=== PATIENT | male | born 1985 | race Caucasian/White ===

== ENCOUNTER 2018-01-07 17:07 | Inpatient (IN) | payer OTHER ==
--- NOTE | 2018-01-07 20:41 | HP ---
COWS - Scale Resting Pulse: 0= DE 80 or Below Sweatin=Flushed/Facial Moisture Restless Observation: 0= Sits Still Pupil Size: 1= Pupils >than Normal Bone or Joint Aches: 4=Acute Joint/Muscle Pain Runny Nose/ Eye Tearin= Nasal Congestion GI Upset > 30mins: 3= Vomiting/Diarrhea (vomiting x 2, diarrhea x 6) Tremor Observation: 4= Gross Tremor/Twitching Yawning Observation: 0= None Anxiety or Irritability: 2=Irritable/Anxious Goose Flesh Skin: 0=Smooth Skin COWS Score: 17 Admission ROS [facility] Chief Complaint: Opioid and benzodiazepine withdrawal symptoms Allergies/Adverse Reactions: Allergies Allergy/AdvReac Type Severity Reaction Status Date / Time No Known Allergies Allergy Verified 01/07/18 18:09 History of Present Illness: 32 years old male with a long history of heroin dependence is seeking admission to detox.Patient has been in previous detox and reports 3 years of sobriety. He has medical history of anxiety, depression and seizures. Patient denies suicide attempt and suicidal ideation at this time. Patient is on Methadone 130mg tablet oral at [facility]. Patient re[ports that his last dose was on 12/22/2017, 15 days ago. Actual dose to be initiated to maintain him on methadone is yet to be verified by the nurse from his program. Exam Limitations: No Limitations - Ebola screening Have you traveled outside of the country in the last 21 days: No (N) Have you had contact with anyone from an Ebola affected area: No Have you been sick,other than usual withdrawal symptoms: No Do you have a fever: No - Review of Systems Constitutional: Chills, Loss of Appetite, Malaise, Night Sweats, Changes in sleep, Weakness EENT: reports: No Symptoms Reported Respiratory: reports: No Symptoms reported Cardiac: reports: No Symptoms Reported GI: reports: Diarrhea (x 6), Nausea, Poor Appetite, Poor Fluid Intake, Vomiting (x 2) : reports: No Symptoms Reported Musculoskeletal: reports: Back Pain, Muscle Pain Integumentary: reports: Dryness, Pruritus Neuro: reports: Tingling, Tremors, Weakness Endocrine: reports: No Symptoms Reported Hematology: reports: Anemia Psychiatric: reports: Mood/Affect Appropiate, Orientated x3, Anxious Other Systems: Reviewed and Negative Patient History - Patient Medical History Hx Anemia: No Hx Asthma: No Hx Chronic Obstructive Pulmonary Disease (COPD): No Hx Cancer: No Hx Cardiac Disorders: No Hx Congestive Heart Failure: No Hx Hypertension: No Hx Hypercholesterolemia: No Hx Pacemaker: No HX Cerebrovascular Accident: No Hx Seizures: Yes (LAST EPISODE IN 2012- Not on medication) Hx Dementia: No Hx Diabetes: No Hx Gastrointestinal Disorders: No Hx Liver Disease: No Hx Genitourinary Disorders: No Hx Sexually Transmitted Disorders: No Hx Renal Disease (ESRD): No Hx Thyroid Disease: No Hx Human Immunodeficiency Virus (HIV): No (NEGATIVE HX) Hx Hepatitis C: No Hx Depression: Yes (Not on medication) Hx Suicide Attempt: No (Denies suicide attempt and suicidal ideation at this time) Hx Bipolar Disorder: No Hx Schizophrenia: No Other Medical History: ANXIETY- Not on medication - Patient Surgical History Past Surgical History: Yes Hx Neurologic Surgery: No Hx Cataract Extraction: No Hx Cardiac Surgery: No Hx Lung Surgery: No Hx Breast Surgery: No Hx Breast Biopsy: No Hx Abdominal Surgery: No Hx Appendectomy: No Hx Cholecystectomy: No Hx Genitourinary Surgery: No Hx Section: No Hx Orthopedic Surgery: Yes (BONE GRAFT LEFT HIP TO RIGHT WRIST) Other Surgical History: SX TO SEPTUM DUE TO DIFFICULTY BREATHING IN 2000 Anesthesia Reaction: No - PPD History Implanted On Prior R Admission?: Yes Date: 04/10/13 Results: 0 MM PPD to be Administered?: Yes - Reproductive History Patient is a Female of Child Bearing Age (11 -55 yrs old): No (MALE) - Smoking Cessation Smoking history: Current every day smoker Have you smoked in the past 12 months: Yes Aproximately how many cigarettes per day: 20 Cigars Per Day: 0 Hx Chewing Tobacco Use: No Initiated information on smoking cessation: Yes 'Breaking Loose' booklet given: 01/07/18 - Substances Abused Alprazolam (Xanax) Route: Oral Frequency: Daily Amount used: 2mg Age of first use: 17 Date of Last Use: 01/06/18 Heroin Route: Injection Frequency: Daily Amount used: 10 bags Age of first use: 20 Date of Last Use: 01/06/18 Benzodiazepine (Klonopin) Route: Oral Frequency: Daily Amount used: 6mg Age of first use: 17 Date of Last Use: 01/04/18 Fentanyl Route: Injection Frequency: Daily Amount used: 1gm Age of first use: 20 Date of Last Use: 01/06/18 Family Disease History - Family Disease History Family Disease History: Other: Father (HEROIN ADDICTION), Brother (ALCOHOLISM) Admission Physical Exam [facility] - Vital Signs Vital Signs: Vital Signs - 24 hr 01/07/18 18:21 Temperature 98.0 F Pulse Rate 62 Respiratory 18 Rate Blood Pressure 112/71 - Physical General Appearance: Yes: Moderate Distress, Tremorous, Irritable, Sweating, Anxious HEENTM: Yes: EOMI, Normal ENT Inspection, Normocephalic, Normal Voice, MANUEL Respiratory: Yes: Lungs Clear, Normal Breath Sounds, No Respiratory Distress Breast: Yes: Breast Exam Deferred Cardiology: Yes: Regular Rhythm, Regular Rate Abdominal: Yes: Normal Bowel Sounds, Soft Genitourinary: Yes: Within Normal Limits Back: Yes: Normal Inspection Musculoskeletal: Yes: Back pain, Muscle Pain Extremities: Yes: Tremors 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: Yes: slabber light II-XII NML intact, Alert, Normal Mood/Affect Integumentary: Yes: Warm Lymphatic: Yes: Within Normal Limits - Diagnostic (1) Opioid dependence with withdrawal Current Visit: Yes Status: Chronic (2) Nicotine dependence Current Visit: Yes Status: Chronic (3) Anxiety Current Visit: Yes Status: Chronic (4) Benzodiazepine dependence Current Visit: Yes Status: Chronic (5) cannabis dependence Current Visit: Yes Status: Chronic (6) depression Current Visit: Yes Status: Chronic Cleared for Admission [facility] - Detox or Rehab [facility] Level of Care: Medically Managed Detox Regimen/Protocol: Valium [facility] Breath Alcohol Content Breath Alcohol Content: 0 Urine Drug Screen - Results Drug Screen Negative: No Urine Drug Screen Results: THC-Marijuana, OPI-Opiates, BAR-Barbiturates, BZO- Benzodiazepines, MTD-Methadone, FEN-Fentanyl
[2018-01-07] MEDS ORDERED: MAG HYDROX/AL HYDROX/SIMETH 30 ML UNIT-DOSE CUP PO PRN (21:01)
[2018-01-07] MEDS ORDERED: IBUPROFEN 400 MG TABLET (FP) PO PRN (21:01)
[2018-01-07] MEDS ORDERED: LOPERAMIDE HCL 2 MG CAPSULE PO PRN (21:01)
[2018-01-07] MEDS ORDERED: P-EPHED 60MG/TRIPROLIDI 2.5MG TABLET PO PRN (21:01)
[2018-01-07] MEDS ORDERED: guaiFENesin/D-METHORPHAN HB 10 ML UNIT-DOSE CUPS PO PRN (21:01)
[2018-01-07] MEDS ORDERED: MAGNESIUM CITRATE 300 ML BOTTLE PO PRN (21:01)
[2018-01-07] MEDS ORDERED: ACETAMINOPHEN 325 MG TABLET (FP) PO PRN (21:01)
[2018-01-07] MEDS ORDERED: MAGNESIUM HYDROX 2400MG/30ML ORAL SUSPENSION 30 ML CUP PO PRN (21:01)
[2018-01-07] MEDS ORDERED: MENTHOL/PHENOL 1 EACH UD MM PRN (21:01)
[2018-01-07] MEDS ORDERED: diazePAM 5 MG TABLET PO ONE (21:15)
[2018-01-07] MEDS ORDERED: MELATONIN 5 MG TABLETS PO PRN (22:00)
[2018-01-07] MEDS: THIAMINE HCL 100 MG TABLET (FP) PO SCH (22:51)
[2018-01-07] MEDS: diazePAM 5 MG TABLET PO SCH (22:55)
[2018-01-08 00:52] LABS: URINE APPEARANCE TURBID; URINE BILIRUBIN NEGATIVE (<2.0 mg/dL); URINE COLOR AMBER; URINE GLUCOSE (UA) NEGATIVE (NEGATIVE); URINE KETONE NEGATIVE (NEGATIVE); URINE LEUK ESTERASE NEGATIVE (NEGATIVE); URINE NITRITE NEGATIVE (NEGATIVE); URINE PROTEIN NEGATIVE (NEGATIVE); URINE UROBILINOGEN NEGATIVE mg/dL (0.2-1.0)
[2018-01-08] MEDS: diazePAM 5 MG TABLET PO SCH ×3 (05:26→22:03)
[2018-01-08] MEDS: NICOTINE POLACRILEX 2 MG GUM BC PRN ×4 (07:00→22:04)
--- NOTE | 2018-01-08 10:02 | EKG ---
Test Reason : Blood Pressure : / mmHG Vent. Rate : 071 BPM Atrial Rate : 071 BPM P-R Int : 142 ms QRS Dur : 090 ms QT Int : 382 ms P-R-T Axes : 056 058 044 degrees QTc Int : 415 ms NORMAL SINUS RHYTHM WITH SINUS ARRHYTHMIA NORMAL ECG NO PREVIOUS ECGS AVAILABLE Confirmed by CELINE ROCHE MD ([id number]) on 01/08/2018 10:01:56 AM Referred By: Confirmed By:CELINE ROCHE MD
[2018-01-08 10:37] LABS: HEMATOCRIT 41.3 % (35.4-49); HEMOGLOBIN 13.5 GM/dL (11.7-16.9); MCH 29.4 pg (25.7-33.7); MCHC 32.7 g/dl (32.0-35.9); MEAN CELL VOLUME 89.8 fl (80-96); PLATELET COUNT 201 K/MM3 (134-434); RDW 14.2 % (11.9-15.9); WHITE BLOOD COUNT 6.7 K/mm3 (4.0-10.0)
[2018-01-08] MEDS: NICOTINE 14 MG/24 HOURS TOPICAL PATCH TD SCH (10:54)
[2018-01-08] MEDS: PRENATAL VITAMINS W/ FOLIC ACID TABLET (FP) PO SCH (10:54)
[2018-01-08] MEDS: diazePAM 5 MG TABLET PO PRN ×2 (10:55→19:23)
[2018-01-08 11:10] LABS: CHLORIDE 100 mmol/L (98-107); POTASSIUM 4.3 mmol/L (3.5-5.1); SODIUM 140 mmol/L (136-145)
[2018-01-08 11:54] LABS: ALBUMIN 3.5 g/dl (3.4-5.0); ALK PHOS 61 U/L (45-117); ANION GAP 10 MMOL/L (8-16); BILIRUBIN,TOTAL 0.2 mg/dL (0.2-1.0); BLOOD UREA NITROGEN 19 mg/dL (7-18); CALCIUM 8.6 mg/dL (8.5-10.1); CO2 30 mmol/L (21-32); CREATININE 0.9 mg/dL (0.55-1.3); GLUCOSE,RANDOM 114 mg/dL (74-106); SGOT/AST 11 U/L (15-37); SGPT/ALT 26 U/L (13-61); TOT PROT 6.4 g/dl (6.4-8.2)
--- NOTE | 2018-01-08 12:27 | CONSULT ---
[facility] Psychiatric Consult - Data Date of interview: 01/08/18 Admission source: [facility] Identifying data: Readmission to [facility] for this 32 y/o male self- referred for detoxification treatment (heroin,cannabis,benzodiazepines).Patient is single without dependents,homeless,unemployed and supported on Public Assistance. Substance Abuse History: Discussed with the patient in this interview. Mr Sung admits to a long standing history of dependence on marihuana,xanax and opiates. Details in current [facility] report : Smoking history: Current every day smoker. Have you smoked in the past 12 months: Yes. Aproximately how many cigarettes per day: 20. Cigars Per Day: 0. Hx Chewing Tobacco Use: No. Initiated information on smoking cessation: Yes. 'Breaking Loose' booklet given : 01/07/18. - Substances Abused. Alprazolam (Xanax). Route: Oral. Frequency: Daily. Amount used: 2mg. Age of first use: 17. Date of Last Use: 01/06/18. Heroin. Route: Injection. Frequency: Daily. Amount used: 10 bags. Age of first use: 20. Date of Last Use: 01/06/18. Benzodiazepine ( Klonopin). Route: Oral. Frequency: Daily. Amount used: 6mg. Age of first use : 17. Date of Last Use: 01/04/18. Fentanyl. Route: Injection. Frequency: Daily. Amount used: 1gm. Age of first use: 20. Date of Last Use: 01/06/18 Medical History: Patient endorses good general health.Noted history of surgery for deviated nasal septum (2000),withdrawal-related seizures and orthosurgery ( bone graft of left hip to right wrist). Psychiatric History: Patient reports a history of one psychiatric hospitalization at the [facility].Diagnosed with MDD and Anxiety Disorder.Mr Sung indicates that he has not followed with psychiatrist for " a while ".Used to be prescribed trazodone 100 mg / hs.Currently on methadone maintenance (130 mg/day) at the [facility] program.Patient denies history of suicide attempts. Physical/Sexual Abuse/Trauma History: Patient denies. Additional Comment: Urine Drug Screen Results: THC-Marijuana, OPI-Opiates, BAR- Barbiturates, BZO-Benzodiazepines, MTD-Methadone, FEN-Fentanyl.Noted. Mental Status Exam - Mental Status Exam Alert and Oriented to: Time, Place, Person Cognitive Function: Good Patient Appearance: Well Groomed Mood: Nervous, Withdrawn, Anxious Affect: Mood Congruent Patient Behavior: Fatigued, Appropriate, Cooperative Speech Pattern: Clear Voice Loudness: Normal Thought Process: Intact, Goal Oriented Thought Disorder: Not Present Hallucinations: Denies Suicidal Ideation: Denies Homicidal Ideation: Denies Insight/Judgement: Poor Sleep: Poorly, Difficulty falling asleep Appetite: Good Muscle strength/Tone: Normal Gait/Station: Normal Psychiatric Findings - Problem List (Alvin 1, 2,3) (1) Opioid dependence on agonist therapy Current Visit: Yes Status: Acute (2) Opioid dependence with withdrawal Current Visit: Yes Status: Acute (3) cannabis dependence Current Visit: Yes Status: Acute (4) Benzodiazepine dependence Current Visit: Yes Status: Acute (5) Nicotine dependence Current Visit: Yes Status: Acute (6) Drug-induced mood disorder Current Visit: Yes Status: Acute (7) Insomnia Current Visit: Yes Status: Acute - Initial Treatment Plan Initial Treatment Plan: Psychoeducation.Sleep hygiene.Detoxification in progress.Trazodone 100 mg po hs.Ordered at patient's request.Made aware of the risk of priapism.Observation.
[2018-01-08] MEDS: METHADONE HCL 10 MG TABLET PO SCH (12:31)
--- NOTE | 2018-01-08 18:28 | PN ---
S CIWA - CIWA Score Nausea/Vomitin Muscle Tremors: 3 Anxiety: 3 Agitation: 4-Moderately Restless Paroxysmal Sweats: 3 Orientation: 0-Oriented Tacttile Disturbances: 0-None Auditory Disturbances: 0-None Visual Disturbances: 0-None Headache: 0-None Present CIWA-Ar Total Score: 16 BHS COWS - Scale Resting Pulse: 0= [place] 80 or Below Sweatin=Flushed/Facial Moisture Restless Observation: 3= Extraneous Movement Pupil Size: 0= Normal to Room Light Bone or Joint Aches: 1= Mild Discomfort Runny Nose/ Eye Tearin= Nasal Congestion GI Upset > 30mins: 1= Stomach Cramp Tremor Observation of Outstretched Hands: 2= Slight Tremor Visible Yawning Observation: 1= 1-2x During Session Anxiety or Irritability: 2=Irritable/Anxious Goose Flesh Skin: 0=Smooth Skin COWS Score: 13 S Progress Note (SOAP) Subjective: shakes requesting methadone per his program dose Objective: 01/08/18 18:25 A & Ox 3 Anxious Vital Signs Temperature 98.3 F 01/08/18 17:57 Pulse Rate 78 01/08/18 17:57 Respiratory Rate 18 01/08/18 17:57 Blood Pressure 116/53 01/08/18 17:57 O2 Sat by Pulse Oximetry (%) Laboratory Last Values WBC 6.7 K/mm3 (4.0-10.0) 01/08/18 08:00 RBC 4.60 M/mm3 (4.00-5.60) 01/08/18 08:00 Hgb 13.5 GM/dL (11.7-16.9) 01/08/18 08:00 Hct 41.3 % (35.4-49) 01/08/18 08:00 MCV 89.8 fl (80-96) 01/08/18 08:00 MCH 29.4 pg (25.7-33.7) 01/08/18 08:00 MCHC 32.7 g/dl (32.0-35.9) 01/08/18 08:00 RDW 14.2 % (11.9-15.9) 01/08/18 08:00 Plt Count 201 K/MM3 (134-434) 01/08/18 08:00 MPV 10.0 fl (7.5-11.1) 01/08/18 08:00 Sodium 140 mmol/L (136-145) 01/08/18 08:00 Potassium 4.3 mmol/L (3.5-5.1) 01/08/18 08:00 Chloride 100 mmol/L (98-107) 01/08/18 08:00 Carbon Dioxide 30 mmol/L (21-32) 01/08/18 08:00 Anion Gap 10 MMOL/L (8-16) 01/08/18 08:00 BUN 19 mg/dL (7-18) H 01/08/18 08:00 Creatinine 0.9 mg/dL (0.55-1.3) 01/08/18 08:00 Creat Clearance w eGFR > 60 (>60) 01/08/18 08:00 Random Glucose 114 mg/dL (74-106) H 01/08/18 08:00 Calcium 8.6 mg/dL (8.5-10.1) 01/08/18 08:00 Total Bilirubin 0.2 mg/dL (0.2-1.0) 01/08/18 08:00 AST 11 U/L (15-37) L 01/08/18 08:00 ALT 26 U/L (13-61) 01/08/18 08:00 Alkaline Phosphatase 61 U/L (45-117) 01/08/18 08:00 Total Protein 6.4 g/dl (6.4-8.2) 01/08/18 08:00 Albumin 3.5 g/dl (3.4-5.0) 01/08/18 08:00 Urine Color Nereyda 01/07/18 23:27 Urine Appearance Turbid 01/07/18 23:27 Urine pH 5.0 (5.0-8.0) 01/07/18 23:27 Ur Specific [place] 1.031 (1.001-1.035) 01/07/18 23:27 Urine Protein Negative (NEGATIVE) 01/07/18 23: Urine Glucose (UA) Negative (NEGATIVE) 01/07/18 23: Urine Ketones Negative (NEGATIVE) 01/07/18 23: Urine Blood Negative (NEGATIVE) 01/07/18 23: Urine Nitrite Negative (NEGATIVE) 01/07/18 23: Urine Bilirubin Negative (<2.0 mg/dL) 01/07/18 23:27 Urine Urobilinogen Negative mg/dL (0.2-1.0) 01/07/18 23:27 Ur Leukocyte Esterase Negative (NEGATIVE) 01/07/18 23:27 RPR Titer Nonreactive (NONREACTIVE) 01/08/18 08:00 labs noted Assessment: 01/08/18 18:26 withdrawal sx Plan: continue detox increase hydration Methadone 20mg. Pt was last medicated at his MMTP on 12/22/17 s/p incarceration
[2018-01-08] MEDS: traZODone HCL 100 MG TABLET (FP) PO SCH (22:03)
[2018-01-08] MEDS: THIAMINE HCL 100 MG TABLET (FP) PO SCH (22:04)
[2018-01-09] MEDS: METHADONE HCL 10 MG TABLET PO SCH (07:43)
[2018-01-09] MEDS: NICOTINE POLACRILEX 2 MG GUM BC PRN (09:45)
[2018-01-09] MEDS: diazePAM 5 MG TABLET PO SCH ×2 (10:51→22:20)
[2018-01-09] MEDS: NICOTINE 14 MG/24 HOURS TOPICAL PATCH TD SCH (10:51)
[2018-01-09] MEDS: PRENATAL VITAMINS W/ FOLIC ACID TABLET (FP) PO SCH (10:51)
[2018-01-09] MEDS: NICOTINE POLACRILEX 4 MG GUM BUC PRN ×4 (10:52→20:25)
--- NOTE | 2018-01-09 11:26 | PN ---
S CIWA - CIWA Score Nausea/Vomitin-No Nausea/No Vomiting Muscle Tremors: None Anxiety: 2 Agitation: 2 Paroxysmal Sweats: No Perspiration Orientation: 0-Oriented Tacttile Disturbances: 0-None Auditory Disturbances: 0-None Visual Disturbances: 0-None Headache: 1-Very Mild CIWA-Ar Total Score: 5 BHS COWS - Scale Resting Pulse: 0= [place] 80 or Below Sweatin= No chills or Flushing Restless Observation: 1= Difficult to Sit Still Pupil Size: 0= Normal to Room Light Bone or Joint Aches: 2= Severe Diffuse Aches Runny Nose/ Eye Tearin= None GI Upset > 30mins: 0= None Tremor Observation of Outstretched Hands: 0= None Yawning Observation: 0= None Anxiety or Irritability: 2=Irritable/Anxious Goose Flesh Skin: 0=Smooth Skin COWS Score: 5 S Progress Note (SOAP) Subjective: PATIENT IRRITABLE AND ANXIOUS ABOUT LEGAL SITUATION. C/O BODY ACHES AND HEADACHE. Objective: 01/09/18 11:25 Vital Signs Temperature 98.0 F 01/09/18 09:31 Pulse Rate 63 01/09/18 09:31 Respiratory Rate 18 01/09/18 09:31 Blood Pressure 94/51 01/09/18 09:31 O2 Sat by Pulse Oximetry (%) Laboratory Tests 01/07/18 01/08/18 01/08/18 23:27 08:00 08:00 WBC 6.7 RBC 4.60 Hgb 13.5 Hct 41.3 MCV 89.8 MCH 29.4 MCHC 32.7 RDW 14.2 Plt Count 201 MPV 10.0 Sodium 140 Potassium 4.3 Chloride 100 Carbon Dioxide 30 Anion Gap 10 BUN 19 H Creatinine 0.9 Creat Clearance w eGFR > 60 Random Glucose 114 H Calcium 8.6 Total Bilirubin 0.2 AST 11 L ALT 26 Alkaline Phosphatase 61 Total Protein 6.4 Albumin 3.5 Urine Color Nereyda Urine Appearance Turbid Urine pH 5.0 Ur Specific [place] 1.031 Urine Protein Negative Urine Glucose (UA) Negative Urine Ketones Negative Urine Blood Negative Urine Nitrite Negative Urine Bilirubin Negative Urine Urobilinogen Negative Ur Leukocyte Esterase Negative RPR Titer 01/08/18 08:00 WBC RBC Hgb Hct MCV MCH MCHC RDW Plt Count MPV Sodium Potassium Chloride Carbon Dioxide Anion Gap BUN Creatinine Creat Clearance w eGFR Random Glucose Calcium Total Bilirubin AST ALT Alkaline Phosphatase Total Protein Albumin Urine Color Urine Appearance Urine pH Ur Specific [place] Urine Protein Urine Glucose (UA) Urine Ketones Urine Blood Urine Nitrite Urine Bilirubin Urine Urobilinogen Ur Leukocyte Esterase RPR Titer Nonreactive ALERT AND ORIENTED SKIN WARM AND DRY CAR S1S2 RESP CTA BL EXT NO EDEMA Assessment: 01/09/18 11:25 WITHDRAWAL SYNDROME Plan: CONTINUE DETOX PER PROTOCOL CONTINUE TO MONITOR CLINICALLY
[2018-01-09] MEDS ORDERED: METHADONE HCL 10 MG TABLET PO ONE (11:57)
--- NOTE | 2018-01-09 13:47 | PN ---
[facility] Progress Note Note: Patient c/o opiate withdrawal symptoms. Patient is on [facility], and was on 130 mg methadone, and missed 18 days of methadone prior to being admitted into detox. Patient received methadone 20 mg this am in detox unit. Discussed patients' status with Nurse Weeks and Dr Sinha, at [facility] and dose will be increased to 30 mg today and 40 mg tomorrow (12/10). Based on patients' symptoms, methadone dose may be increased. [facility] should be notified of additional increases ([phone]).
[2018-01-09] MEDS: diazePAM 5 MG TABLET PO PRN ×2 (15:09→19:02)
[2018-01-09] MEDS: traZODone HCL 100 MG TABLET (FP) PO SCH (22:20)
[2018-01-09] MEDS: THIAMINE HCL 100 MG TABLET (FP) PO SCH (22:20)
[2018-01-10] MEDS: METHADONE HCL 40 MG DISPERSABLE TABLET PO SCH (05:44)
[2018-01-10] MEDS: diazePAM 5 MG TABLET PO PRN ×2 (05:45→13:51)
[2018-01-10] MEDS: NICOTINE POLACRILEX 4 MG GUM BUC PRN ×5 (08:47→20:18)
[2018-01-10] MEDS: NICOTINE 14 MG/24 HOURS TOPICAL PATCH TD SCH (10:44)
[2018-01-10] MEDS: diazePAM 5 MG TABLET PO SCH ×2 (10:44→22:19)
[2018-01-10] MEDS: PRENATAL VITAMINS W/ FOLIC ACID TABLET (FP) PO SCH (10:44)
--- NOTE | 2018-01-10 11:57 | PN ---
[facility] Progress Note Note: PATIENT CURRENTLY IN DETOX FOR BZO WITHDRAWAL. ALSO IS ON MMTP AND TITRATED TO RECEIVE MTD 40MG DAILY. DENIES MEDICAL COMPLAINTS BUT NOTED PACING IN HALLWAY AND STATES HE IS ANXIOUS ABOUT LEGAL SITUATION. DENIES CP, SOB AND DIZZINESS. Vital Signs Temperature 97.4 F L 01/10/18 09:26 Pulse Rate 70 01/10/18 09:26 Respiratory Rate 18 01/10/18 09:26 Blood Pressure 103/67 01/10/18 09:26 O2 Sat by Pulse Oximetry (%) Laboratory Tests 01/07/18 01/08/18 01/08/18 23:27 08:00 08:00 WBC 6.7 RBC 4.60 Hgb 13.5 Hct 41.3 MCV 89.8 MCH 29.4 MCHC 32.7 RDW 14.2 Plt Count 201 MPV 10.0 Sodium 140 Potassium 4.3 Chloride 100 Carbon Dioxide 30 Anion Gap 10 BUN 19 H Creatinine 0.9 Creat Clearance w eGFR > 60 Random Glucose 114 H Calcium 8.6 Total Bilirubin 0.2 AST 11 L ALT 26 Alkaline Phosphatase 61 Total Protein 6.4 Albumin 3.5 Urine Color Nereyda Urine Appearance Turbid Urine pH 5.0 Ur Specific [place] 1.031 Urine Protein Negative Urine Glucose (UA) Negative Urine Ketones Negative Urine Blood Negative Urine Nitrite Negative Urine Bilirubin Negative Urine Urobilinogen Negative Ur Leukocyte Esterase Negative RPR Titer 01/08/18 08:00 WBC RBC Hgb Hct MCV MCH MCHC RDW Plt Count MPV Sodium Potassium Chloride Carbon Dioxide Anion Gap BUN Creatinine Creat Clearance w eGFR Random Glucose Calcium Total Bilirubin AST ALT Alkaline Phosphatase Total Protein Albumin Urine Color Urine Appearance Urine pH Ur Specific [place] Urine Protein Urine Glucose (UA) Urine Ketones Urine Blood Urine Nitrite Urine Bilirubin Urine Urobilinogen Ur Leukocyte Esterase RPR Titer Nonreactive PE: ALERT AND ORIENTED SKIN WARM AND DRY CAR S1S2 RESP CTA BL GI SOFT BS+ NT A/P: WITHDRAWAL SYMPTOMS CONTINUE DETOX PROTOCOL
[2018-01-10] MEDS: traZODone HCL 100 MG TABLET (FP) PO SCH (22:19)
[2018-01-10] MEDS: THIAMINE HCL 100 MG TABLET (FP) PO SCH (22:19)
[2018-01-11] MEDS: METHADONE HCL 40 MG DISPERSABLE TABLET PO SCH (05:28)
[2018-01-11 06:12] VITALS: BP 107/64; PULSE 62; TEMP 97.1
[2018-01-11] MEDS ORDERED: diazePAM 5 MG TABLET PO SCH (10:00)
--- NOTE | 2018-01-11 10:15 | DS ---
[facility] Detox Discharge Summary Admission Date: 01/07/18 Discharge Date: 01/11/18 - History Present History: Alcohol Dependence, MMTP - Physical Exam Results Vital Signs: Vital Signs Temperature 97.1 F L 01/11/18 06:11 Pulse Rate 62 01/11/18 06:11 Respiratory Rate 18 01/11/18 06:30 Blood Pressure 107/64 01/11/18 06:11 O2 Sat by Pulse Oximetry (%) Pertinent Admission Physical Exam Findings: Patient discharged today. Given dose of MTD at 6am as ordered. Patient medically stable. To follow up with [facility] for ongoing substance abuse treatment. Encouraged to continue group meetings and follow up with [facility] to prevent relapse. Discharge instructions provided by staff. - Treatment Hospital Course: Detox Protocol Followed, Detoxed Safely, Responded well, Discharged Condition Good - Medication Discharge Medications: Ambulatory Orders traZODone HCL [Desyrel -] 200 mg PO HS #30 tablet 04/01/14 Thiamine HCl [Vitamin B1 -] 100 mg PO HS #30 tablet 04/04/14 traZODone HCL [Trazodone HCl] 100 mg PO HS #30 tablet 01/10/18 - Diagnosis (1) Opioid dependence on agonist therapy Status: Chronic (2) Alcohol dependence Status: Resolved Qualifiers: Substance use status: uncomplicated Qualified Code(s): F10.20 - Alcohol dependence, uncomplicated - AMA Did Patient Leave Against Medical Advice: No
== END 2018-01-11 09:55 | disposition home or self-care (01) | DRG 773 ==
LOC: YASAS 17:07 → Y3N 20:24
PROC: HZ2ZZZZ Detoxification Services for Substance Abuse Treatment (ICD-10-PCS; principal; 2018-01-07)
DX: F10.230 Alcohol dependence with withdrawal, uncomplicated (principal); F13.20 Sedative, hypnotic or anxiolytic dependence, uncomplicated; F12.20 Cannabis dependence, uncomplicated; F11.20 Opioid dependence, uncomplicated; F41.9 Anxiety disorder, unspecified; F32.9 Major depressive disorder, single episode, unspecified; G47.00 Insomnia, unspecified; Z86.69 Personal history of other diseases of the nervous system and sense organs
CPT/HCPCS: 36415; 80053; 81003; 85027; 86593; 93005; 93010

== ENCOUNTER 2018-06-09 17:25 | Inpatient (IN) | payer OTHER ==
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
[2018-06-09] MEDS ORDERED: MAG HYDROX/AL HYDROX/SIMETH 30 ML UNIT-DOSE CUP PO PRN (19:25)
[2018-06-09] MEDS ORDERED: LOPERAMIDE HCL 2 MG CAPSULE PO PRN (19:25)
[2018-06-09] MEDS ORDERED: P-EPHED 60MG/TRIPROLIDI 2.5MG TABLET PO PRN (19:25)
[2018-06-09] MEDS ORDERED: hydrOXYzine PAMOATE 50 MG CAPSULE (FP) PO PRN (19:25)
[2018-06-09] MEDS ORDERED: MENTHOL/PHENOL 1 EACH UD MM PRN (19:25)
[2018-06-09] MEDS ORDERED: guaiFENesin/D-METHORPHAN HB 10 ML UNIT-DOSE CUPS PO PRN (19:25)
[2018-06-09] MEDS ORDERED: MAGNESIUM CITRATE 300 ML BOTTLE PO PRN (19:25)
[2018-06-09] MEDS ORDERED: ACETAMINOPHEN 325 MG TABLET (FP) PO PRN (19:25)
[2018-06-09] MEDS ORDERED: MAGNESIUM HYDROX 2400MG/30ML ORAL SUSPENSION 30 ML CUP PO PRN (19:25)
[2018-06-09] MEDS ORDERED: diazePAM 5 MG TABLET PO ONE (19:30)
[2018-06-09] MEDS ORDERED: METHADONE HCL 10 MG TABLET PO ONE (19:45)
[2018-06-09] MEDS: THIAMINE HCL 100 MG TABLET (FP) PO SCH (22:22)
[2018-06-09] MEDS: diazePAM 5 MG TABLET PO SCH (22:22)
[2018-06-09] MEDS: MELATONIN 5 MG TABLETS PO PRN (22:22)
[2018-06-09] MEDS: BACITRACIN 0.9 GM PACKET TP SCH (22:22)
[2018-06-09] MEDS: IBUPROFEN 400 MG TABLET (FP) PO PRN (22:24)
[2018-06-09] MEDS: NICOTINE POLACRILEX 2 MG GUM BC PRN (22:24)
[2018-06-10] MEDS: diazePAM 5 MG TABLET PO SCH ×3 (05:50→22:16)
[2018-06-10] MEDS: METHADONE HCL 10 MG TABLET PO SCH (05:50)
[2018-06-10] MEDS: IBUPROFEN 400 MG TABLET (FP) PO PRN ×2 (05:53→17:36)
[2018-06-10] MEDS: PRENATAL VITAMINS W/ FOLIC ACID TABLET (FP) PO SCH (10:16)
[2018-06-10] MEDS: BACITRACIN 0.9 GM PACKET TP SCH ×2 (10:17→22:15)
[2018-06-10] MEDS: diazePAM 5 MG TABLET PO PRN ×2 (10:17→17:36)
[2018-06-10] MEDS: NICOTINE POLACRILEX 2 MG GUM BC PRN ×3 (10:19→22:17)
[2018-06-10 10:38] LABS: HEMATOCRIT 37.5 % (35.4-49); HEMOGLOBIN 13.1 GM/dL (11.7-16.9); MCH 32.2 pg (25.7-33.7); MCHC 34.9 g/dl (32.0-35.9); MEAN CELL VOLUME 92.3 fl (80-96); MEAN PLT VOLUME 10.2 fl (7.5-11.1); PLATELET COUNT 211 K/MM3 (134-434); RBC 4.06 M/mm3 (4.00-5.60); RDW 13.9 % (11.9-15.9); WHITE BLOOD COUNT 5.5 K/mm3 (4.0-10.0)
[2018-06-10 11:03] LABS: ALBUMIN 3.1 g/dl (3.4-5.0); ALK PHOS 49 U/L (45-117); ANION GAP 7 MMOL/L (8-16); BILIRUBIN,TOTAL 0.2 mg/dL (0.2-1); BLOOD UREA NITROGEN 21 mg/dL (7-18); CALCIUM 8.5 mg/dL (8.5-10.1); CHLORIDE 106 mmol/L (98-107); CO2 29 mmol/L (21-32); CREATININE 0.9 mg/dL (0.55-1.3); GLUCOSE,RANDOM 103 mg/dL (74-106); POTASSIUM 4.2 mmol/L (3.5-5.1); SGOT/AST 17 U/L (15-37); SGPT/ALT 40 U/L (13-61); SODIUM 141 mmol/L (136-145); TOT PROT 5.7 g/dl (6.4-8.2)
--- NOTE | 2018-06-10 12:14 | CONSULT ---
[facility] Psychiatric Consult - Data Date of interview: 06/10/18 Admission source: [facility] Identifying data: Patient is a 33 year old single male, without children, unemployed, and is currently homeless. This is one of multiple admissions for patient. Patient admitted to for alcohol, cocaine, opiate and benzodiazepine dependence. Substance Abuse History: - Smoking Cessation. Smoking history: Current every day smoker. Have you smoked in the past 12 months: Yes. Aproximately how many cigarettes per day: 20. Cigars Per Day: 0. Hx Chewing Tobacco Use: No. Initiated information on smoking cessation: Yes. 'Breaking Loose' booklet given : 06/09/18. - Substance & Tx. History. Hx Alcohol Use: Yes. Hx Substance Use : Yes. Substance Use Type: Alcohol, Tranquilizers. Hx Substance Use Treatment : Yes ([facility] 01/07/18 to 01/11/18). - Substances Abused. Alcohol. Route: Oral. Frequency: Daily. Amount used: liquor- 1 pint, beer- 1 case. Age of first use: 14. Date of Last Use: 06/08/18. Alprazolam (Xanax). Route: Oral. Frequency: Daily. Amount used: 4mg to 10 mgs. Age of first use: 17. Date of Last Use: 06/08/18. Heroin. Route: Injection. Frequency: Daily. Amount used: 10 bags. Age of first use: 19. Date of Last Use: 06/08/18. Marijuana/Hashish. Route: Smoking. Frequency: 1-2 times per week. Amount used : 30$. Age of first use: 15. Date of Last Use: 06/09/18 Medical History: Seizure (last episode in 2012) Psychiatric History: Patient reports one psychiatric hospitalization as a 16 year old secondary to drug induced psychosis. Mr. Sung was receiving psychiatric care at [facility] inpatient rehab program. He was prescribed trazodone 100mg HS for insomnia. States he had to leave the program after he tested positive for cocaine and has not taken trazodone since 05/26/18. Mr. Sung is also on Methaodone maintenance 20mg daily. Patient denies h/o suicide attempt. At present he reports difficulty sleeping. Physical/Sexual Abuse/Trauma History: denies. Mental Status Exam - Mental Status Exam Alert and Oriented to: Time, Place, Person Cognitive Function: Good Patient Appearance: Well Groomed Mood: Withdrawn Affect: Mood Congruent Patient Behavior: Fatigued Speech Pattern: Appropriate Voice Loudness: Normal Thought Process: Intact, Goal Oriented Thought Disorder: Not Present Hallucinations: Denies Suicidal Ideation: Denies Homicidal Ideation: Denies Insight/Judgement: Poor Sleep: Poorly Appetite: Fair Muscle strength/Tone: Normal Gait/Station: Normal Psychiatric Findings - Problem List ([place] 1, 2,3) (1) Alcohol dependence with uncomplicated withdrawal Status: Chronic (2) Nicotine dependence Status: Chronic Qualifiers: Nicotine product type: cigarettes Substance use status: uncomplicated Qualified Code(s): F17.210 - Nicotine dependence, cigarettes, uncomplicated (3) Sedative, hypnotic or anxiolytic dependence Status: Chronic (4) Substance-induced sleep disorder Status: Acute (5) cannabis dependence Status: Deleted (6) Cocaine dependence Status: Chronic Qualifiers: Substance use status: uncomplicated Qualified Code(s): F14.20 - Cocaine dependence, uncomplicated (7) Opioid dependence Status: Deleted (8) Opioid dependence on agonist therapy Status: Deleted (9) Substance induced mood disorder Status: Deleted - Initial Treatment Plan Initial Treatment Plan: Psychoeducation provided. Detoxification in progress. Will order Trazodone 100mg HS. Benefits and side effects discussed. Patient made aware of the risk priapism. Verbal consent given.
--- NOTE | 2018-06-10 14:08 | PN ---
[facility] CIWA - CIWA Score Nausea/Vomitin Muscle Tremors: None Anxiety: 4-Mod. Anxious/Guarded Agitation: 4-Moderately Restless Paroxysmal Sweats: 3 Orientation: 0-Oriented Tacttile Disturbances: 0-None Auditory Disturbances: 0-None Visual Disturbances: 0-None Headache: 2-Mild CIWA-Ar Total Score: 15 [facility] Progress Note (SOAP) Subjective: PATIENT C/O SWEATING, CHILLS, ANXIETY, DIARRHEA AND RESTLESSNESS. Objective: 06/10/18 14:06 Laboratory Tests 06/10/18 06/10/18 06/10/18 07:50 07:50 07:50 WBC 5.5 RBC 4.06 Hgb 13.1 Hct 37.5 MCV 92.3 MCH 32.2 MCHC 34.9 RDW 13.9 Plt Count 211 MPV 10.2 Sodium 141 Potassium 4.2 Chloride 106 Carbon Dioxide 29 Anion Gap 7 L BUN 21 H Creatinine 0.9 Creat Clearance w eGFR > 60 Random Glucose 103 Calcium 8.5 Total Bilirubin 0.2 AST 17 ALT 40 Alkaline Phosphatase 49 Total Protein 5.7 L Albumin 3.1 L RPR Titer HIV 1&2 Antibody Screen Negative HIV P24 Antigen Negative 06/10/18 07:50 WBC RBC Hgb Hct MCV MCH MCHC RDW Plt Count MPV Sodium Potassium Chloride Carbon Dioxide Anion Gap BUN Creatinine Creat Clearance w eGFR Random Glucose Calcium Total Bilirubin AST ALT Alkaline Phosphatase Total Protein Albumin RPR Titer Nonreactive HIV 1&2 Antibody Screen HIV P24 Antigen PE: ALERT AND ORIENTED X 3 SKIN + MOISTURE ON CHEST, BEADS OF SWEAT OF FOREHEAD EXT FULL ROM, NO EDEMA AMB AD ANNA ANXOIUS/RESTLESS Assessment: 06/10/18 14:07 WITHDRAWAL SX Plan: CONTINUE DETOX ENCOURAGE ORAL FLUIDS MONITOR CLINICALLY
[2018-06-10 15:14] LABS: URINE APPEARANCE TURBID; URINE BILIRUBIN NEGATIVE (<2.0 mg/dL); URINE COLOR YELLOW; URINE GLUCOSE (UA) NEGATIVE (NEGATIVE); URINE KETONE NEGATIVE (NEGATIVE); URINE LEUK ESTERASE NEGATIVE (NEGATIVE); URINE NITRITE NEGATIVE (NEGATIVE); URINE PROTEIN 1+ (NEGATIVE); URINE UROBILINOGEN 4.0 E.U/dl mg/dL (0.2-1.0)
[2018-06-10 15:34] LABS: EPI CELLS RARE /HPF (FEW); URINE MUCUS MANY
[2018-06-10] MEDS: traZODone HCL 100 MG TABLET (FP) PO SCH (22:16)
[2018-06-10] MEDS: MELATONIN 5 MG TABLETS PO PRN (22:16)
[2018-06-10] MEDS: THIAMINE HCL 100 MG TABLET (FP) PO SCH (22:16)
[2018-06-11] MEDS: METHADONE HCL 10 MG TABLET PO SCH (05:25)
[2018-06-11] MEDS: diazePAM 5 MG TABLET PO PRN ×3 (05:28→18:57)
[2018-06-11] MEDS: BACITRACIN 0.9 GM PACKET TP SCH ×2 (10:33→22:23)
[2018-06-11] MEDS: diazePAM 5 MG TABLET PO SCH ×2 (10:33→22:23)
[2018-06-11] MEDS: PRENATAL VITAMINS W/ FOLIC ACID TABLET (FP) PO SCH (10:33)
[2018-06-11] MEDS ORDERED: METHADONE HCL 40 MG DISPERSABLE TABLET PO ONE (10:45)
--- NOTE | 2018-06-11 11:35 | PN ---
[facility] CIWA - CIWA Score Nausea/Vomitin-No Nausea/No Vomiting Muscle Tremors: 3 Anxiety: 3 Agitation: 3 Paroxysmal Sweats: 3 Orientation: 0-Oriented Tacttile Disturbances: 0-None Auditory Disturbances: 0-None Visual Disturbances: 0-None Headache: 0-None Present CIWA-Ar Total Score: 12 S Progress Note (SOAP) Subjective: sweats shakes interrupted sleep body aches i am on a methadone program Objective: 06/11/18 11:35 Vital Signs Temperature 98.2 F 06/11/18 10:01 Pulse Rate 74 06/11/18 10:01 Respiratory Rate 17 06/11/18 10:01 Blood Pressure 102/58 L 06/11/18 10:01 O2 Sat by Pulse Oximetry (%) Laboratory Tests 06/10/18 06/10/18 06/10/18 07:50 07:50 07:50 WBC 5.5 RBC 4.06 Hgb 13.1 Hct 37.5 MCV 92.3 MCH 32.2 MCHC 34.9 RDW 13.9 Plt Count 211 MPV 10.2 Sodium 141 Potassium 4.2 Chloride 106 Carbon Dioxide 29 Anion Gap 7 L BUN 21 H Creatinine 0.9 Creat Clearance w eGFR > 60 Random Glucose 103 Calcium 8.5 Total Bilirubin 0.2 AST 17 ALT 40 Alkaline Phosphatase 49 Total Protein 5.7 L Albumin 3.1 L Urine Color Urine Appearance Urine pH Ur Specific [place] Urine Protein Urine Glucose (UA) Urine Ketones Urine Blood Urine Nitrite Urine Bilirubin Urine Urobilinogen Ur Leukocyte Esterase Urine WBC (Auto) Urine RBC (Auto) Ur Epithelial Cells Urine Mucus RPR Titer HIV 1&2 Antibody Screen Negative HIV P24 Antigen Negative 06/10/18 06/10/18 07:50 08:40 WBC RBC Hgb Hct MCV MCH MCHC RDW Plt Count MPV Sodium Potassium Chloride Carbon Dioxide Anion Gap BUN Creatinine Creat Clearance w eGFR Random Glucose Calcium Total Bilirubin AST ALT Alkaline Phosphatase Total Protein Albumin Urine Color Yellow Urine Appearance Turbid Urine pH 6.0 Ur Specific [place] 1.029 Urine Protein 1+ H Urine Glucose (UA) Negative Urine Ketones Negative Urine Blood Negative Urine Nitrite Negative Urine Bilirubin Negative Urine Urobilinogen 4.0 e.u/dl Ur Leukocyte Esterase Negative Urine WBC (Auto) 2 Urine RBC (Auto) None Ur Epithelial Cells Rare Urine Mucus Many RPR Titer Nonreactive HIV 1&2 Antibody Screen HIV P24 Antigen aaox3 ambulating no acute distress Assessment: 06/11/18 11:36 withdrawal sx noted pts' methadone dose was verified and confirmed that he is on 70mg and last received his dose on 06/01/18. discussion was done with pt that due to him missing 10 days of methadone; he will start with 40mg and build him up. pt in agreement. Plan: continue detox increase fluids start with 40mg methadone today and increase until his final dose of 70mg is reached.
--- NOTE | 2018-06-11 11:45 | PN ---
[facility] Progress Note Note: pt is on a MMTP program is dose is verified for 70mg; last medicated on 06/01/18. pt is aware we will start with 40mg and build him up. pt in agreement. On discharge his dose will be 60mg and he will be going to his program for reinstatement. pt in agreement with plan.
[2018-06-11] MEDS: NICOTINE POLACRILEX 2 MG GUM BC PRN (18:59)
[2018-06-11] MEDS: THIAMINE HCL 100 MG TABLET (FP) PO SCH (22:23)
[2018-06-11] MEDS: traZODone HCL 100 MG TABLET (FP) PO SCH (22:23)
[2018-06-12] MEDS ORDERED: METHADONE HCL 40 MG DISPERSABLE TABLET ONE (05:29)
[2018-06-12] MEDS ORDERED: METHADONE HCL 10 MG TABLET ONE (05:30)
[2018-06-12] MEDS ORDERED: METHADONE 40 MG, METHADONE 10 MG PO SCH (06:00)
[2018-06-12] MEDS ORDERED: METHADONE 40 MG, METHADONE 10 MG PO ONE (06:00)
[2018-06-12] MEDS ORDERED: METHADONE HCL 10 MG TABLET PO SCH (06:00)
[2018-06-12] MEDS ORDERED: METHADONE HCL 10 MG TABLET PO ONE (06:00)
[2018-06-12] MEDS: diazePAM 5 MG TABLET PO PRN (06:02)
[2018-06-12 06:41] VITALS: BP 109/57; PULSE 62; TEMP 97
[2018-06-12] MEDS: PRENATAL VITAMINS W/ FOLIC ACID TABLET (FP) PO SCH (09:15)
[2018-06-12] MEDS: diazePAM 5 MG TABLET PO SCH (09:16)
--- NOTE | 2018-06-12 10:01 | PN ---
S Progress Note Note: pt states he need to go to A. pt received his last dose of detox regimen and scheduled methadone. Pt states will return to his MMTP program for reinstatement. Pt showed no s/s of withdrawals. d/c home ordered.
--- NOTE | 2018-06-12 10:04 | DS ---
[facility] Detox Discharge Summary Admission Date: 06/09/18 Discharge Date: 06/12/18 - History Present History: Alcohol Dependence, Cocaine Dependence, Opioid Dependence, Sedative Dependence - Physical Exam Results Vital Signs: Vital Signs Temperature 97.0 F L 06/12/18 06:00 Pulse Rate 62 06/12/18 06:00 Respiratory Rate 18 06/12/18 06:00 Blood Pressure 109/57 L 06/12/18 06:00 O2 Sat by Pulse Oximetry (%) - Treatment Hospital Course: Detox Protocol Followed, Detoxed Safely, Responded well, Discharged Condition Good, Rehab Referral Accepted - Diagnosis (1) Alcohol dependence with uncomplicated withdrawal Status: Chronic (2) Dehydration Status: Chronic (3) Heroin abuse Status: Chronic (4) Insomnia Status: Chronic Qualifiers: Insomnia type: unspecified Qualified Code(s): G47.00 - Insomnia, unspecified (5) Laceration of nose Status: Acute Qualifiers: Encounter type: initial encounter Qualified Code(s): S01.21XA - Laceration without foreign body of nose, initial encounter (6) Laceration of right eyebrow Status: Acute Qualifiers: Encounter type: initial encounter Qualified Code(s): S01.111A - Laceration without foreign body of right eyelid and periocular area, initial encounter (7) Opioid dependence with withdrawal Status: Chronic (8) Sedative, hypnotic or anxiolytic dependence Status: Chronic (9) Seizure Status: Acute (10) Substance-induced sleep disorder Status: Acute (11) Anxiety Status: Chronic (12) Cocaine dependence Status: Chronic Qualifiers: Substance use status: uncomplicated Qualified Code(s): F14.20 - Cocaine dependence, uncomplicated (13) Nicotine dependence Status: Chronic Qualifiers: Nicotine product type: cigarettes Substance use status: uncomplicated Qualified Code(s): F17.210 - Nicotine dependence, cigarettes, uncomplicated - AMA Did Patient Leave Against Medical Advice: No (going home/MMTP program)
[2018-06-13] MEDS ORDERED: METHADONE HCL 10 MG TABLET PO ONE (06:00)
[2018-06-13] MEDS ORDERED: METHADONE 40 MG, METHADONE 20 MG PO ONE (06:00)
[2018-06-13] MEDS ORDERED: diazePAM 5 MG TABLET PO SCH (10:00)
== END 2018-06-12 09:28 | disposition home or self-care (01) | DRG 773 ==
LOC: YASAS 17:25 → Y6N 19:13
PROVIDERS: ADMIT Surgery; ATTEND Surgery
PROC: HZ2ZZZZ Detoxification Services for Substance Abuse Treatment (ICD-10-PCS; principal; 2018-06-09)
DX: F11.23 Opioid dependence with withdrawal (principal); F10.230 Alcohol dependence with withdrawal, uncomplicated; F13.230 Sedative, hypnotic or anxiolytic dependence with withdrawal, uncomplicated; F14.20 Cocaine dependence, uncomplicated; F12.20 Cannabis dependence, uncomplicated; F17.210 Nicotine dependence, cigarettes, uncomplicated; F19.282 Other psychoactive substance dependence with psychoactive substance-induced sleep disorder; F41.9 Anxiety disorder, unspecified; E86.0 Dehydration; G47.00 Insomnia, unspecified; Z86.69 Personal history of other diseases of the nervous system and sense organs
CPT/HCPCS: 36415; 80053; 81003; 81015; 85027; 86593; 87389

== ENCOUNTER 2018-06-24 16:03 | Inpatient (IN) | payer OTHER ==
[2018-06-24 16:25] VITALS: BMI 24.3
--- NOTE | 2018-06-24 19:15 | HP ---
COWS - Scale Resting Pulse: 1= [place] 81-100 Sweatin= Chills/Flushing Restless Observation: 3= Extraneous Movement Pupil Size: 1= Pupils >than Normal Bone or Joint Aches: 2= Severe Diffuse Aches Runny Nose/ Eye Tearin= Runny Nose/Eyes GI Upset > 30mins: 2= Nausea/Diarrhea Tremor Observation: 2= Slight Tremor Visible Yawning Observation: 1= 1-2x During Session Anxiety or Irritability: 2=Irritable/Anxious Goose Flesh Skin: 0=Smooth Skin COWS Score: 17 CIWA Score Nausea/Vomitin Muscle Tremors: 2 Anxiety: 2 Agitation: 2 Paroxysmal Sweats: 1-Minimal Palms Moist Orientation: 0-Oriented Tacttile Disturbances: 1-Very Mild Itch/Numbness Auditory Disturbances: 1-Very Mild Visual Disturbances: 0-None Headache: 2-Mild CIWA-Ar Total Score: 13 - Admission Criteria [facility] Guidelines: Admission for Medically Managed Detox: Requires at least one of the followin. CIWA greater than 12 2. Seizures within the past 24 hours 3. Delirium tremens within the past 24 hours 4. Hallucinations within the past 24 hours 5. Acute intervention needed for co occurring medical disorder 6. Acute intervention needed for co occurring psychiatric disorder 7. Severe withdrawal that cannot be handled at a lower level of care (continued vomiting, continued diarrhea, abnormal vital signs) requiring intravenous medication and/or fluids 8. Patient presents the following: CIWA greater than 12 Admission Criteria Met: Admission criteria met Admission ROS [facility] Chief Complaint: i need help to stop using heroin,xanax,street methadone,cocaine,marijuana, alcohol Allergies/Adverse Reactions: Allergies Allergy/AdvReac Type Severity Reaction Status Date / Time No Known Allergies Allergy Verified 06/24/18 20:35 History of Present Illness: this 33 years old male with heroin,xanax,cocaine,marijuana,street methadone, alcohol stated not on methadone program since 06/12/18 hepatitis c not treated weight loss multiple admissions in the past ,last 06/09/18 to 06/12/18 nicotine dependence 1 pack/day requesting gum insomnia on trazadone 100 mgs po hs,anxiety,depression longest period of sobriety 3 years plan for rehab after detox Exam Limitations: No Limitations - Ebola screening Have you traveled outside of the country in the last 21 days: No (N) Have you had contact with anyone from an Ebola affected area: No Have you been sick,other than usual withdrawal symptoms: No Do you have a fever: No - Review of Systems Constitutional: Chills, Loss of Appetite, Malaise, Night Sweats, Changes in sleep, Weakness, Unintentional Wgt. Loss EENT: reports: Tearing, Nose Congestion Respiratory: reports: No Symptoms reported Cardiac: reports: No Symptoms Reported GI: reports: Diarrhea, Nausea, Vomiting, Abdominal cramping : reports: No Symptoms Reported Musculoskeletal: reports: Back Pain, Joint Pain, Muscle Pain, Joint Stiffness Integumentary: reports: Dryness Neuro: reports: Headache, Tremors Endocrine: reports: No Symptoms Reported Hematology: reports: No Symptoms Reported Psychiatric: reports: No Sypmtoms Reported, Judgement Intact, Mood/Affect Appropiate, Orientated x3, Agitated, Anxious, Depressed, other (insomnia) Other Systems: Reviewed and Negative Patient History - Patient Medical History Hx Anemia: No Hx Asthma: No Hx Chronic Obstructive Pulmonary Disease (COPD): No Hx Cancer: No Hx Cardiac Disorders: No Hx Congestive Heart Failure: No Hx Hypertension: No Hx Hypercholesterolemia: No Hx Pacemaker: No HX Cerebrovascular Accident: No Hx Seizures: Yes (LAST EPISODE IN 2012- Not on medication) Hx Dementia: No Hx Diabetes: No Hx Gastrointestinal Disorders: No Hx Liver Disease: Yes (hepatitis c) Hx Genitourinary Disorders: No Hx Sexually Transmitted Disorders: No Hx Renal Disease (ESRD): No Hx Thyroid Disease: No Hx Human Immunodeficiency Virus (HIV): No (NEGATIVE HX last 2017) Hx Hepatitis C: Yes (not treated) Hx Depression: Yes (.anxiety,depression) Hx Suicide Attempt: No (Denies suicide attempt and suicidal ideation at this time) Hx Bipolar Disorder: No Hx Schizophrenia: No Other Medical History: no suicidal,no homicidal, - Patient Surgical History Past Surgical History: Yes Hx Neurologic Surgery: No Hx Cataract Extraction: No Hx Cardiac Surgery: No Hx Lung Surgery: No Hx Breast Surgery: No Hx Breast Biopsy: No Hx Abdominal Surgery: No Hx Appendectomy: No Hx Cholecystectomy: No Hx Genitourinary Surgery: No Hx Section: No Hx Orthopedic Surgery: Yes (BONE GRAFT LEFT HIP TO RIGHT SCAPHOID) Other Surgical History: SX TO SEPTUM DUE TO DIFFICULTY BREATHING IN 2000 Anesthesia Reaction: No - PPD History Previous Implant?: Yes Documented Results: Negative w/proof Implanted On Prior R Admission?: Yes Date: 01/09/18 Results: 0 MM PPD to be Administered?: No - Smoking Cessation Smoking history: Current every day smoker Have you smoked in the past 12 months: Yes Aproximately how many cigarettes per day: 20 Cigars Per Day: 0 Hx Chewing Tobacco Use: No Initiated information on smoking cessation: Yes 'Breaking Loose' booklet given: 06/24/18 - Substance & Tx. History Hx Alcohol Use: Yes Hx Substance Use: Yes Substance Use Type: Alcohol, Cocaine, Heroin, Marijuana, Opiates, Tranquilizers Hx Substance Use Treatment: Yes ([facility] 06/09/18 to 06/12/18) - Substances Abused Heroin Route: Injection Frequency: Daily Amount used: 10 bags Age of first use: 19 Date of Last Use: 06/23/18 Cocaine Route: Inhalation Frequency: Daily Amount used: 20$ Age of first use: 17 Date of Last Use: 06/22/18 Alcohol Route: Oral Frequency: Daily Amount used: 1 pint of jose martin/2 of 6 packs of 24 ozs Age of first use: 15 Date of Last Use: 06/23/18 Marijuana/Hashish Route: Smoking Frequency: Daily Amount used: 10$ Age of first use: 15 Date of Last Use: 06/23/18 Alprazolam (Xanax) Route: Oral Frequency: Daily Amount used: 8 mgs to 10 mgs Age of first use: 17 Date of Last Use: 06/23/18 Non-Rx Methadone Route: Oral Frequency: 1-2 times per week Amount used: 10 mgs Age of first use: 20 Date of Last Use: 06/22/18 Family Disease History - Family Disease History Family Disease History: Other: Father (HEROIN ADDICTION,SOBER), Brother ( ALCOHOLISM) Admission Physical Exam S - Vital Signs Vital Signs: Vital Signs - 24 hr 06/24/18 16:22 Temperature 98.8 F Pulse Rate 85 Respiratory 18 Rate Blood Pressure 117/66 - Physical General Appearance: Yes: Moderate Distress, Intoxicated, Tremorous, Irritable, Sweating, Anxious HEENTM: Yes: Normal ENT Inspection, MANUEL, Pharynx Normal Respiratory: Yes: Within Normal Limits, Lungs Clear, Normal Breath Sounds Neck: Yes: Within Normal Limits, Supple, Trachea in good position Breast: Yes: Within Normal Limits Cardiology: Yes: Within Normal Limits, Regular Rhythm, Regular Rate, S1, S2 Abdominal: Yes: Within Normal Limits, Normal Bowel Sounds, Non Tender, Flat, Soft Genitourinary: Yes: Within Normal Limits Back: Yes: Normal Inspection, Muscle Spasm Musculoskeletal: Yes: full range of Motion, Back pain, Muscle Pain Extremities: Yes: Within Normal Limits, Normal Range of Motion, Tremors 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: Yes: 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, Fully Oriented, Alert, Motor Strength 5/5 Integumentary: Yes: Dry, Track Vergara Lymphatic: Yes: Within Normal Limits - Diagnostic (1) Opioid dependence with withdrawal Current Visit: No Status: Chronic (2) Alcohol dependence with uncomplicated withdrawal Current Visit: No Status: Chronic (3) Cocaine dependence Current Visit: No Status: Chronic Qualifiers: Substance use status: uncomplicated Qualified Code(s): F14.20 - Cocaine dependence, uncomplicated (4) Dehydration Current Visit: No Status: Chronic (5) Insomnia Current Visit: No Status: Chronic Qualifiers: Insomnia type: unspecified Qualified Code(s): G47.00 - Insomnia, unspecified (6) Nicotine dependence Current Visit: No Status: Chronic Qualifiers: Nicotine product type: cigarettes Substance use status: uncomplicated Qualified Code(s): F17.210 - Nicotine dependence, cigarettes, uncomplicated (7) Sedative, hypnotic or anxiolytic dependence Current Visit: No Status: Chronic (8) Anxiety and depression Current Visit: Yes Status: Acute (9) IVDU (intravenous drug user) Current Visit: Yes Status: Acute (10) Weight loss Current Visit: Yes Status: Acute (11) Cannabis dependence Current Visit: Yes Status: Acute (12) Insomnia secondary to depression with anxiety Current Visit: Yes Status: Acute (13) Seizure Current Visit: No Status: Acute Cleared for Admission [facility] - Detox or Rehab S Level of Care: Medically Managed Detox Regimen/Protocol: Methadone/Valium [facility] Breath Alcohol Content Breath Alcohol Content: 0 Urine Drug Screen - Results Drug Screen Negative: No Urine Drug Screen Results: THC-Marijuana, BARBARA-Cocaine, BZO-Benzodiazepines, MTD- Methadone, FEN-Fentanyl Inpatient Rehab Admission - Rehab Decision to Admit Inpatient rehab admission?: No
[2018-06-24] MEDS ORDERED: MAG HYDROX/AL HYDROX/SIMETH 30 ML UNIT-DOSE CUP PO PRN (19:35)
[2018-06-24] MEDS ORDERED: ACETAMINOPHEN 325 MG TABLET (FP) PO PRN (19:35)
[2018-06-24] MEDS ORDERED: P-EPHED 60MG/TRIPROLIDI 2.5MG TABLET PO PRN (19:35)
[2018-06-24] MEDS ORDERED: MENTHOL/PHENOL 1 EACH UD MM PRN (19:35)
[2018-06-24] MEDS ORDERED: MAGNESIUM CITRATE 300 ML BOTTLE PO PRN (19:35)
[2018-06-24] MEDS ORDERED: LOPERAMIDE HCL 2 MG CAPSULE PO PRN (19:35)
[2018-06-24] MEDS ORDERED: guaiFENesin/D-METHORPHAN HB 10 ML UNIT-DOSE CUPS PO PRN (19:35)
[2018-06-24] MEDS ORDERED: MAGNESIUM HYDROX 2400MG/30ML ORAL SUSPENSION 30 ML CUP PO PRN (19:35)
[2018-06-24] MEDS ORDERED: hydrOXYzine PAMOATE 25 MG CAPSULE (FP) PO PRN (19:35)
[2018-06-24] MEDS ORDERED: IBUPROFEN 400 MG TABLET (FP) PO PRN (19:35)
[2018-06-24] MEDS ORDERED: diazePAM 5 MG TABLET PO PRN (20:50)
[2018-06-24] MEDS ORDERED: METHADONE HCL 10 MG TABLET (FOR DETOX USE ONLY) PO ONE ×2 (21:00→23:00)
[2018-06-24] MEDS ORDERED: diazePAM 5 MG TABLET PO ONE (21:00)
[2018-06-24] MEDS: cloNIDine HCL 0.1 MG TABLET PO SCH (21:40)
[2018-06-24] MEDS ORDERED: MELATONIN 5 MG TABLETS PO PRN (22:00)
[2018-06-24] MEDS: diazePAM 5 MG TABLET PO SCH (22:42)
[2018-06-24] MEDS: THIAMINE HCL 100 MG TABLET (FP) PO SCH (22:42)
[2018-06-25] MEDS: NICOTINE POLACRILEX 2 MG GUM BC PRN ×7 (05:04→22:05)
[2018-06-25] MEDS: diazePAM 5 MG TABLET PO SCH ×3 (05:04→22:05)
[2018-06-25] MEDS: diazePAM 5 MG TABLET PO PRN ×3 (09:10→20:46)
--- NOTE | 2018-06-25 09:39 | PN ---
[facility] CIWA - CIWA Score Nausea/Vomitin-Mild Nausea/No Vomiting Muscle Tremors: 3 Anxiety: 2 Agitation: 3 Paroxysmal Sweats: 1-Minimal Palms Moist Orientation: 1-Uncertain about Date Tacttile Disturbances: 0-None Auditory Disturbances: 0-None Visual Disturbances: 0-None Headache: 1-Very Mild CIWA-Ar Total Score: 12 [facility] COWS - Scale Resting Pulse: 0= [place] 80 or Below Sweatin= Chills/Flushing Restless Observation: 0= Sits Still Pupil Size: 0= Normal to Room Light Bone or Joint Aches: 2= Severe Diffuse Aches Runny Nose/ Eye Tearin= Runny Nose/Eyes GI Upset > 30mins: 2= Nausea/Diarrhea Tremor Observation of Outstretched Hands: 2= Slight Tremor Visible Yawning Observation: 1= 1-2x During Session Anxiety or Irritability: 2=Irritable/Anxious Goose Flesh Skin: 0=Smooth Skin COWS Score: 12 [facility] Progress Note (SOAP) Subjective: tremor general body aches sweating muscle cramping restlessness tolerate food and fluid well ambulating on [address] social with peers in day room Objective: 06/25/18 09:37 Vital Signs Temperature 97.6 F 06/25/18 09:24 Pulse Rate 70 06/25/18 09:24 Respiratory Rate 18 06/25/18 09:24 Blood Pressure 115/63 06/25/18 09:24 O2 Sat by Pulse Oximetry (%) lab pending Assessment: 06/25/18 09:37 alcohol benzo opiate withdrawal sx Plan: continue detox review lab when available narcan kit reconciled
[2018-06-25] MEDS ORDERED: METHADONE HCL 10 MG TABLET (FOR DETOX USE ONLY) PO ONE (10:00)
[2018-06-25 10:08] LABS: ALBUMIN 2.9 g/dl (3.4-5.0); ALK PHOS 47 U/L (45-117); ANION GAP 5 MMOL/L (8-16); BILIRUBIN,TOTAL 0.2 mg/dL (0.2-1); BLOOD UREA NITROGEN 15 mg/dL (7-18); CALCIUM 8.2 mg/dL (8.5-10.1); CHLORIDE 105 mmol/L (98-107); CO2 30 mmol/L (21-32); CREATININE 0.9 mg/dL (0.55-1.3); GLUCOSE,RANDOM 89 mg/dL (74-106); POTASSIUM 4.5 mmol/L (3.5-5.1); SGOT/AST 53 U/L (15-37); SGPT/ALT 94 U/L (13-61); SODIUM 140 mmol/L (136-145); TOT PROT 5.8 g/dl (6.4-8.2)
[2018-06-25] MEDS: PRENATAL VITAMINS W/ FOLIC ACID TABLET (FP) PO SCH (10:10)
[2018-06-25] MEDS: cloNIDine HCL 0.1 MG TABLET PO SCH ×2 (10:10→22:05)
[2018-06-25 10:27] LABS: HEMATOCRIT 36.7 % (35.4-49); HEMOGLOBIN 12.4 GM/dL (11.7-16.9); MCH 31.4 pg (25.7-33.7); MCHC 33.7 g/dl (32.0-35.9); MEAN CELL VOLUME 93.3 fl (80-96); MEAN PLT VOLUME 9.7 fl (7.5-11.1); PLATELET COUNT 199 K/MM3 (134-434); RBC 3.93 M/mm3 (4.00-5.60); RDW 13.8 % (11.9-15.9); WHITE BLOOD COUNT 5.7 K/mm3 (4.0-10.0)
[2018-06-25 15:29] LABS: URINE APPEARANCE CLEAR; URINE BILIRUBIN NEGATIVE (<2.0 mg/dL); URINE COLOR LTYELLOW; URINE GLUCOSE (UA) NEGATIVE (NEGATIVE); URINE KETONE NEGATIVE (NEGATIVE); URINE LEUK ESTERASE NEGATIVE (NEGATIVE); URINE NITRITE NEGATIVE (NEGATIVE); URINE PROTEIN NEGATIVE (NEGATIVE); URINE UROBILINOGEN NEGATIVE mg/dL (0.2-1.0)
[2018-06-25] MEDS: CYCLOBENZAPRINE HCL 10 MG TABLET (FP) PO PRN (22:05)
[2018-06-25] MEDS: THIAMINE HCL 100 MG TABLET (FP) PO SCH (22:05)
[2018-06-26] MEDS: diazePAM 5 MG TABLET PO PRN ×4 (05:23→21:10)
--- NOTE | 2018-06-26 09:47 | PN ---
[facility] CIWA - CIWA Score Nausea/Vomitin-No Nausea/No Vomiting Muscle Tremors: 2 Anxiety: 2 Agitation: 2 Paroxysmal Sweats: 1-Minimal Palms Moist Orientation: 0-Oriented Tacttile Disturbances: 0-None Auditory Disturbances: 0-None Visual Disturbances: 0-None Headache: 1-Very Mild CIWA-Ar Total Score: 8 [facility] COWS - Scale Resting Pulse: 0= VT 80 or Below Sweatin= Chills/Flushing Restless Observation: 0= Sits Still Pupil Size: 0= Normal to Room Light Bone or Joint Aches: 1= Mild Discomfort Runny Nose/ Eye Tearin= Nasal Congestion GI Upset > 30mins: 1= Stomach Cramp Tremor Observation of Outstretched Hands: 2= Slight Tremor Visible Yawning Observation: 1= 1-2x During Session Anxiety or Irritability: 1=Feels Anxious/Irritable Goose Flesh Skin: 0=Smooth Skin COWS Score: 8 [facility] Progress Note (SOAP) Subjective: tremor anxiety sweating trouble resting difficulty sleep at night Objective: 06/26/18 09:48 Vital Signs Temperature 97.9 F 06/26/18 09:18 Pulse Rate 77 06/26/18 09:18 Respiratory Rate 18 06/26/18 09:18 Blood Pressure 106/88 06/26/18 09:18 O2 Sat by Pulse Oximetry (%) Laboratory Last Values WBC 5.7 K/mm3 (4.0-10.0) 06/25/18 07:00 RBC 3.93 M/mm3 (4.00-5.60) L 06/25/18 07:00 Hgb 12.4 GM/dL (11.7-16.9) 06/25/18 07:00 Hct 36.7 % (35.4-49) 06/25/18 07:00 MCV 93.3 fl (80-96) 06/25/18 07:00 MCH 31.4 pg (25.7-33.7) 06/25/18 07:00 MCHC 33.7 g/dl (32.0-35.9) 06/25/18 07:00 RDW 13.8 % (11.9-15.9) 06/25/18 07:00 Plt Count 199 K/MM3 (134-434) 06/25/18 07:00 MPV 9.7 fl (7.5-11.1) 06/25/18 07:00 Sodium 140 mmol/L (136-145) 06/25/18 07:00 Potassium 4.5 mmol/L (3.5-5.1) 06/25/18 07:00 Chloride 105 mmol/L (98-107) 06/25/18 07:00 Carbon Dioxide 30 mmol/L (21-32) 06/25/18 07:00 Anion Gap 5 MMOL/L (8-16) L 06/25/18 07:00 BUN 15 mg/dL (7-18) 06/25/18 07:00 Creatinine 0.9 mg/dL (0.55-1.3) 06/25/18 07:00 Creat Clearance w eGFR > 60 (>60) 06/25/18 07:00 Random Glucose 89 mg/dL (74-106) 06/25/18 07:00 Calcium 8.2 mg/dL (8.5-10.1) L 06/25/18 07:00 Total Bilirubin 0.2 mg/dL (0.2-1) 06/25/18 07:00 AST 53 U/L (15-37) H 06/25/18 07:00 ALT 94 U/L (13-61) H 06/25/18 07:00 Alkaline Phosphatase 47 U/L (45-117) 06/25/18 07:00 Total Protein 5.8 g/dl (6.4-8.2) L 06/25/18 07:00 Albumin 2.9 g/dl (3.4-5.0) L 06/25/18 07:00 Urine Color Ltyellow 06/25/18 12:50 Urine Appearance Clear 06/25/18 12:50 Urine pH 8.0 (5.0-8.0) D 06/25/18 12:50 Ur Specific [place] 1.009 (1.010-1.035) L 06/25/18 12:50 Urine Protein Negative (NEGATIVE) 06/25/18 12:50 Urine Glucose (UA) Negative (NEGATIVE) 06/25/18 12:50 Urine Ketones Negative (NEGATIVE) 06/25/18 12:50 Urine Blood Negative (NEGATIVE) 06/25/18 12:50 Urine Nitrite Negative (NEGATIVE) 06/25/18 12:50 Urine Bilirubin Negative (<2.0 mg/dL) 06/25/18 12:50 Urine Urobilinogen Negative mg/dL (0.2-1.0) 06/25/18 12:50 Ur Leukocyte Esterase Negative (NEGATIVE) 06/25/18 12:50 RPR Titer Nonreactive (NONREACTIVE) 06/25/18 07:00 lab noted Assessment: 06/26/18 09:49 alcohol benzo opiate withdrawal sx insomnia Plan: continue detox trazadon
[2018-06-26] MEDS ORDERED: METHADONE HCL 5 MG TABLET (FOR DETOX USE ONLY) PO ONE (10:00)
[2018-06-26] MEDS: PRENATAL VITAMINS W/ FOLIC ACID TABLET (FP) PO SCH (10:04)
[2018-06-26] MEDS: diazePAM 5 MG TABLET PO SCH ×2 (10:04→22:34)
[2018-06-26] MEDS: cloNIDine HCL 0.1 MG TABLET PO SCH ×2 (10:04→22:21)
[2018-06-26] MEDS: NICOTINE POLACRILEX 2 MG GUM BC PRN (10:05)
[2018-06-26] MEDS: NICOTINE POLACRILEX 2 MG GUM BUC PRN ×4 (14:49→21:10)
[2018-06-26] MEDS ORDERED: traZODone HCL 50 MG TABLET (FP) PO ONE (22:00)
[2018-06-26] MEDS: THIAMINE HCL 100 MG TABLET (FP) PO SCH (22:21)
[2018-06-26] MEDS: CYCLOBENZAPRINE HCL 10 MG TABLET (FP) PO PRN (22:21)
[2018-06-27] MEDS: diazePAM 5 MG TABLET PO PRN ×4 (05:43→20:43)
[2018-06-27] MEDS: PRENATAL VITAMINS W/ FOLIC ACID TABLET (FP) PO SCH (09:37)
[2018-06-27] MEDS: diazePAM 5 MG TABLET PO SCH ×2 (09:37→21:41)
[2018-06-27] MEDS: cloNIDine HCL 0.1 MG TABLET PO SCH ×2 (09:37→21:41)
[2018-06-27] MEDS: NICOTINE POLACRILEX 2 MG GUM BUC PRN ×4 (09:39→20:46)
[2018-06-27] MEDS ORDERED: METHADONE HCL 5 MG TABLET (FOR DETOX USE ONLY) PO ONE (10:00)
--- NOTE | 2018-06-27 13:18 | PN ---
[facility] Progress Note (SOAP) Subjective: Pt states he is feeling fine- does not want to MAT with methadone/Bupe. Says will try abstinence O: Vital Signs - 24 hr 06/26/18 06/26/18 06/26/18 13:52 17:19 21:59 Temperature 97.9 F 98.2 F 98.1 F Pulse Rate 78 76 80 Respiratory 18 16 18 Rate Blood Pressure 110/89 108/61 103/64 06/27/18 06/27/18 06/27/18 00:27 03:30 06:00 Temperature 97.3 F L Pulse Rate 75 Respiratory 18 18 18 Rate Blood Pressure 106/60 06/27/18 06/27/18 08:44 09:22 Temperature 98.3 F Pulse Rate 84 Respiratory 18 18 Rate Blood Pressure 123/61 Laboratory Tests 06/25/18 06/25/18 06/25/18 07:00 07:00 07:00 WBC 5.7 RBC 3.93 L Hgb 12.4 Hct 36.7 MCV 93.3 MCH 31.4 MCHC 33.7 RDW 13.8 Plt Count 199 MPV 9.7 Sodium 140 Potassium 4.5 Chloride 105 Carbon Dioxide 30 Anion Gap 5 L BUN 15 Creatinine 0.9 Creat Clearance w eGFR > 60 Random Glucose 89 Calcium 8.2 L Total Bilirubin 0.2 AST 53 H ALT 94 H Alkaline Phosphatase 47 Total Protein 5.8 L Albumin 2.9 L Urine Color Urine Appearance Urine pH Ur Specific [place] Urine Protein Urine Glucose (UA) Urine Ketones Urine Blood Urine Nitrite Urine Bilirubin Urine Urobilinogen Ur Leukocyte Esterase RPR Titer Nonreactive 06/25/18 12:50 WBC RBC Hgb Hct MCV MCH MCHC RDW Plt Count MPV Sodium Potassium Chloride Carbon Dioxide Anion Gap BUN Creatinine Creat Clearance w eGFR Random Glucose Calcium Total Bilirubin AST ALT Alkaline Phosphatase Total Protein Albumin Urine Color Ltyellow Urine Appearance Clear Urine pH 8.0 D Ur Specific [place] 1.009 L Urine Protein Negative Urine Glucose (UA) Negative Urine Ketones Negative Urine Blood Negative Urine Nitrite Negative Urine Bilirubin Negative Urine Urobilinogen Negative Ur Leukocyte Esterase Negative RPR Titer a/p: continue detox protocols: pt doing well. f/u with PCP
[2018-06-27] MEDS: THIAMINE HCL 100 MG TABLET (FP) PO SCH (21:40)
[2018-06-27] MEDS: CYCLOBENZAPRINE HCL 10 MG TABLET (FP) PO PRN (21:40)
[2018-06-28 06:03] VITALS: BP 114/73; PULSE 58; TEMP 97.1
--- NOTE | 2018-06-28 08:30 | DS ---
[facility] Detox Discharge Summary Admission Date: 06/24/18 Discharge Date: 06/28/18 - History Present History: Alcohol Dependence, Opioid Dependence, Sedative Dependence Additional Comments: 33 years old male admitted on 06/24/18 for alcohol benzo and opiate withdrawal stabilization feeling better today less tremor mild body aches worry about his 16 years old family member committed suicidal successfully patient plans to go to methadone maintenance treatment program where he completed intake days ago or comes to [facility] patient maintains confidence that he has supportive network at home and helping support his family members - Physical Exam Results Vital Signs: Vital Signs Temperature 97.1 F L 06/28/18 06:02 Pulse Rate 58 L 06/28/18 06:02 Respiratory Rate 18 06/28/18 06:02 Blood Pressure 114/73 06/28/18 06:02 O2 Sat by Pulse Oximetry (%) Pertinent Admission Physical Exam Findings: alcohol benzo opiate withdrawal sx Laboratory Last Values WBC 5.7 K/mm3 (4.0-10.0) 06/25/18 07:00 RBC 3.93 M/mm3 (4.00-5.60) L 06/25/18 07:00 Hgb 12.4 GM/dL (11.7-16.9) 06/25/18 07:00 Hct 36.7 % (35.4-49) 06/25/18 07:00 MCV 93.3 fl (80-96) 06/25/18 07:00 MCH 31.4 pg (25.7-33.7) 06/25/18 07:00 MCHC 33.7 g/dl (32.0-35.9) 06/25/18 07:00 RDW 13.8 % (11.9-15.9) 06/25/18 07:00 Plt Count 199 K/MM3 (134-434) 06/25/18 07:00 MPV 9.7 fl (7.5-11.1) 06/25/18 07:00 Sodium 140 mmol/L (136-145) 06/25/18 07:00 Potassium 4.5 mmol/L (3.5-5.1) 06/25/18 07:00 Chloride 105 mmol/L (98-107) 06/25/18 07:00 Carbon Dioxide 30 mmol/L (21-32) 06/25/18 07:00 Anion Gap 5 MMOL/L (8-16) L 06/25/18 07:00 BUN 15 mg/dL (7-18) 06/25/18 07:00 Creatinine 0.9 mg/dL (0.55-1.3) 06/25/18 07:00 Creat Clearance w eGFR > 60 (>60) 06/25/18 07:00 Random Glucose 89 mg/dL (74-106) 06/25/18 07:00 Calcium 8.2 mg/dL (8.5-10.1) L 06/25/18 07:00 Total Bilirubin 0.2 mg/dL (0.2-1) 06/25/18 07:00 AST 53 U/L (15-37) H 06/25/18 07:00 ALT 94 U/L (13-61) H 06/25/18 07:00 Alkaline Phosphatase 47 U/L (45-117) 06/25/18 07:00 Total Protein 5.8 g/dl (6.4-8.2) L 06/25/18 07:00 Albumin 2.9 g/dl (3.4-5.0) L 06/25/18 07:00 Urine Color Ltyellow 06/25/18 12:50 Urine Appearance Clear 06/25/18 12:50 Urine pH 8.0 (5.0-8.0) D 06/25/18 12:50 Ur Specific [place] 1.009 (1.010-1.035) L 06/25/18 12:50 Urine Protein Negative (NEGATIVE) 06/25/18 12:50 Urine Glucose (UA) Negative (NEGATIVE) 06/25/18 12:50 Urine Ketones Negative (NEGATIVE) 06/25/18 12:50 Urine Blood Negative (NEGATIVE) 06/25/18 12:50 Urine Nitrite Negative (NEGATIVE) 06/25/18 12:50 Urine Bilirubin Negative (<2.0 mg/dL) 06/25/18 12:50 Urine Urobilinogen Negative mg/dL (0.2-1.0) 06/25/18 12:50 Ur Leukocyte Esterase Negative (NEGATIVE) 06/25/18 12:50 RPR Titer Nonreactive (NONREACTIVE) 06/25/18 07:00 lab noted - Treatment Hospital Course: Detox Protocol Followed, Detoxed Safely, Responded well, Discharged Condition Good, Rehab Referral Accepted Patient has Accepted a Rehab Referral to: methadone program / [facility] - Medication Discharge Medications: Ambulatory Orders Naloxone HCl [Narcan] 4 mg NS ASDIR PRN #1 spray 06/28/18 - Diagnosis (1) Alcohol dependence with uncomplicated withdrawal Status: Acute (2) Opioid dependence with withdrawal Status: Acute (3) Sedative, hypnotic or anxiolytic dependence Status: Acute - AMA Did Patient Leave Against Medical Advice: No
[2018-06-28] MEDS ORDERED: diazePAM 5 MG TABLET PO SCH (10:00)
[2018-06-28] MEDS ORDERED: METHADONE HCL 10 MG TABLET (FOR DETOX USE ONLY) PO ONE (10:00)
[2018-06-29] MEDS ORDERED: METHADONE HCL 5 MG TABLET (FOR DETOX USE ONLY) PO ONE (06:00)
== END 2018-06-28 09:23 | disposition home or self-care (01) | DRG 773 ==
LOC: YASAS 16:03 → Y3N 19:48
PROVIDERS: ADMIT Surgery; ATTEND Surgery
PROC: HZ2ZZZZ Detoxification Services for Substance Abuse Treatment (ICD-10-PCS; principal; 2018-06-24)
DX: F11.23 Opioid dependence with withdrawal (principal); F10.230 Alcohol dependence with withdrawal, uncomplicated; F13.230 Sedative, hypnotic or anxiolytic dependence with withdrawal, uncomplicated; F14.20 Cocaine dependence, uncomplicated; F12.20 Cannabis dependence, uncomplicated; F17.210 Nicotine dependence, cigarettes, uncomplicated; F41.8 Other specified anxiety disorders; F32.9 Major depressive disorder, single episode, unspecified; F51.05 Insomnia due to other mental disorder; B18.2 Chronic viral hepatitis C; E86.0 Dehydration; R63.4 Abnormal weight loss; Z68.24 Body mass index [BMI] 24.0-24.9, adult; Z86.69 Personal history of other diseases of the nervous system and sense organs
CPT/HCPCS: 36415; 80053; 81003; 85027; 86593; J0735

== ENCOUNTER 2018-07-25 17:15 | Inpatient (IN) | payer OTHER ==
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
[2018-07-25] MEDS ORDERED: BISMUTH SUBSALICYLATE 524 MG/30 ML UD PO PRN (20:31)
[2018-07-25] MEDS ORDERED: MELATONIN 5 MG TABLETS PO PRN (20:31)
[2018-07-25] MEDS ORDERED: MAG HYDROX/AL HYDROX/SIMETH 30 ML UNIT-DOSE CUP PO PRN (20:31)
[2018-07-25] MEDS ORDERED: ACETAMINOPHEN 325 MG TABLET (FP) PO PRN ×2 (20:31)
[2018-07-25] MEDS ORDERED: MAGNESIUM CITRATE 300 ML BOTTLE PO PRN (20:31)
[2018-07-25] MEDS ORDERED: MAGNESIUM HYDROX 2400MG/30ML ORAL SUSPENSION 30 ML CUP PO PRN (20:31)
[2018-07-25] MEDS ORDERED: MENTHOL/PHENOL 1 EACH UD MM PRN (20:31)
[2018-07-25] MEDS ORDERED: IBUPROFEN 400 MG TABLET (FP) PO PRN (20:31)
[2018-07-25] MEDS: chlordiazePOXIDE HCL 25 MG CAPSULE PO SCH (22:46)
[2018-07-25] MEDS: THIAMINE HCL 100 MG TABLET (FP) PO SCH (22:46)
[2018-07-26] MEDS: chlordiazePOXIDE HCL 25 MG CAPSULE PO SCH ×4 (06:31→22:09)
[2018-07-26] MEDS ORDERED: METHADONE HCL 10 MG TABLET PO ONE (08:17)
[2018-07-26] MEDS ORDERED: METHADONE 40 MG, METHADONE 30 MG PO ONE (08:40)
--- NOTE | 2018-07-26 08:59 | PN ---
[facility] CIWA - CIWA Score Nausea/Vomitin Muscle Tremors: 2 Anxiety: 2 Agitation: 2 Paroxysmal Sweats: 1-Minimal Palms Moist Orientation: 0-Oriented Tacttile Disturbances: 1-Very Mild Itch/Numbness Auditory Disturbances: 1-Very Mild Visual Disturbances: 0-None Headache: 2-Mild CIWA-Ar Total Score: 13 [facility] Progress Note (SOAP) Subjective: alert,irritable,anxious,interrupted sleep,tremor pain in the body and back Objective: 07/26/18 08:58 Vital Signs Temperature 97.7 F 07/26/18 07:14 Pulse Rate 93 H 07/26/18 07:14 Respiratory Rate 18 07/26/18 07:14 Blood Pressure 100/68 07/26/18 07:14 O2 Sat by Pulse Oximetry (%) 07/26/18 08:58 labs pending Assessment: 07/26/18 08:58 withdrawal symptom Plan: continue detox
[2018-07-26] MEDS ORDERED: METHADONE HCL 40 MG DISPERSABLE TABLET ONE (09:31)
[2018-07-26] MEDS ORDERED: METHADONE HCL 10 MG TABLET ONE (09:32)
[2018-07-26] MEDS: PRENATAL VITAMINS W/ FOLIC ACID TABLET (FP) PO SCH (10:11)
[2018-07-26] MEDS: METHOCARBAMOL 500 MG TABLET PO PRN ×2 (10:13→16:50)
[2018-07-26] MEDS: NICOTINE POLACRILEX 4 MG GUM BUC PRN ×4 (10:16→20:10)
[2018-07-26 10:21] LABS: HEMATOCRIT 38.9 % (35.4-49); HEMOGLOBIN 12.7 GM/dL (11.7-16.9); MCH 30.2 pg (25.7-33.7); MCHC 32.7 g/dl (32.0-35.9); MEAN CELL VOLUME 92.3 fl (80-96); PLATELET COUNT 203 K/MM3 (134-434); RBC 4.22 M/mm3 (4.00-5.60); RDW 13.4 % (11.9-15.9); WHITE BLOOD COUNT 4.5 K/mm3 (4.0-10.0)
[2018-07-26 10:29] LABS: ALK PHOS 47 U/L (45-117); ANION GAP 7 MMOL/L (8-16); BILIRUBIN,TOTAL 0.3 mg/dL (0.2-1); BLOOD UREA NITROGEN 18 mg/dL (7-18); CALCIUM 8.6 mg/dL (8.5-10.1); CHLORIDE 108 mmol/L (98-107); CO2 28 mmol/L (21-32); CREATININE 0.9 mg/dL (0.55-1.3); GLUCOSE,RANDOM 103 mg/dL (74-106); SGOT/AST 12 U/L (15-37); SGPT/ALT 27 U/L (13-61); SODIUM 143 mmol/L (136-145); TOT PROT 6.1 g/dl (6.4-8.2)
[2018-07-26] MEDS: HYDROCORTISONE 1% TOPICAL CREAM 30 GM TUBE TP SCH ×2 (11:10→22:12)
--- NOTE | 2018-07-26 12:56 | CONSULT ---
[facility] Psychiatric Consult - Data Date of interview: 07/26/18 Admission source: [facility] Identifying data: Patient is a 33 year old male, homeless, unemployed, and supported by public assistance. This is one of multiple admissions for patient. Patient admitted to for alcohol dependence. Substance Abuse History: Smoking Cessation. Smoking history: Current every day smoker. Have you smoked in the past 12 months: Yes. Aproximately how many cigarettes per day: 20. Cigars Per Day: 0. Hx Chewing Tobacco Use: No. Initiated information on smoking cessation: Yes. 'Breaking Loose' booklet given : 07/25/18. - Substance & Tx. History. Hx Alcohol Use: Yes. Hx Substance Use : Yes. Substance Use Type: Alcohol, Cocaine, Marijuana, Opiates. Hx Substance Use Treatment: Yes ([facility]). - Substances abused. Heroin. Substance route: Injection. Frequency: Daily. Amount used: 10 bags. Age of first use: 19. Date of last use: 07/25/18 Medical History: Seizures, Hep C Psychiatric History: Patient reports h/o one psychiatric hospitalization in 2010 for drug induced psychosis at [facility]. He reports being diagnosed with depression/anxiety and was prescribed xanax and klonopin?? Mr. Sung does not have an outpatient psychiatrist. 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 Physical/Sexual Abuse/Trauma History: denies. Mental Status Exam - Mental Status Exam Alert and Oriented to: Time, Place, Person Cognitive Function: Good Patient Appearance: Well Groomed Mood: Euthymic Affect: Appropriate Patient Behavior: Talkative, Appropriate, Cooperative Speech Pattern: Appropriate Voice Loudness: Normal Thought Process: Intact, Goal Oriented Thought Disorder: Not Present Hallucinations: Denies Suicidal Ideation: Denies Homicidal Ideation: Denies Insight/Judgement: Poor Sleep: Poorly Appetite: Fair Muscle strength/Tone: Normal Gait/Station: Normal Psychiatric Findings - Problem List ([place] 1, 2,3) (1) Substance-induced anxiety disorder Current Visit: Yes Status: Acute (2) Alcohol dependence with uncomplicated withdrawal Current Visit: Yes Status: Acute (3) Cannabis dependence Current Visit: Yes Status: Chronic (4) Opioid dependence with withdrawal Current Visit: Yes Status: Acute (5) Substance-induced sleep disorder Current Visit: Yes Status: Acute - Initial Treatment Plan Initial Treatment Plan: Psychoeducation provided. Detoxification in progress. Will order Trazodone 50mg HS. Gabapentin 100mg TID ordered by CRYSTAL Flores.
[2018-07-26] MEDS: GABAPENTIN 100 MG CAPSULE (FP) PO SCH ×2 (13:59→22:09)
[2018-07-26] MEDS: chlordiazePOXIDE HCL 25 MG CAPSULE PO PRN ×2 (14:02→20:11)
[2018-07-26] MEDS ORDERED: traZODone HCL 100 MG TABLET (FP) PO SCH (22:00)
[2018-07-26] MEDS: THIAMINE HCL 100 MG TABLET (FP) PO SCH (22:09)
[2018-07-26] MEDS: traZODone HCL 50 MG TABLET (FP) PO SCH (22:10)
[2018-07-27] MEDS ORDERED: METHADONE HCL 40 MG DISPERSABLE TABLET ONE (05:43)
[2018-07-27] MEDS ORDERED: METHADONE HCL 10 MG TABLET ONE (05:43)
[2018-07-27] MEDS: chlordiazePOXIDE HCL 25 MG CAPSULE PO SCH ×2 (05:44→10:16)
[2018-07-27] MEDS: METHADONE 40 MG, METHADONE 30 MG PO SCH (05:44)
[2018-07-27] MEDS: GABAPENTIN 100 MG CAPSULE (FP) PO SCH ×3 (05:46→22:21)
[2018-07-27] MEDS: NICOTINE POLACRILEX 4 MG GUM BUC PRN ×3 (05:47→17:43)
[2018-07-27] MEDS ORDERED: METHADONE HCL 40 MG DISPERSABLE TABLET PO SCH (06:00)
[2018-07-27] MEDS: METHOCARBAMOL 500 MG TABLET PO PRN ×2 (09:02→17:42)
--- NOTE | 2018-07-27 09:28 | PN ---
[facility] CIWA - CIWA Score Nausea/Vomitin Muscle Tremors: 2 Anxiety: 2 Agitation: 2 Paroxysmal Sweats: 2 Orientation: 0-Oriented Tacttile Disturbances: 1-Very Mild Itch/Numbness Auditory Disturbances: 1-Very Mild Visual Disturbances: 0-None Headache: 2-Mild CIWA-Ar Total Score: 14 [facility] COWS - Scale Resting Pulse: 0= [place] 80 or Below Sweatin= Chills/Flushing Restless Observation: 1= Difficult to Sit Still Pupil Size: 1= Pupils >than Normal Bone or Joint Aches: 2= Severe Diffuse Aches Runny Nose/ Eye Tearin= Runny Nose/Eyes GI Upset > 30mins: 2= Nausea/Diarrhea Tremor Observation of Outstretched Hands: 2= Slight Tremor Visible Yawning Observation: 1= 1-2x During Session Anxiety or Irritability: 2=Irritable/Anxious Goose Flesh Skin: 0=Smooth Skin COWS Score: 14 [facility] Progress Note (SOAP) Subjective: alert,iritable,anxious,interrupted sleep,tremor,pain in the body Objective: 07/27/18 09:27 Vital Signs Temperature 96.2 F L 07/27/18 06:25 Pulse Rate 49 L 07/27/18 06:25 Respiratory Rate 18 07/27/18 06:25 Blood Pressure 99/56 L 07/27/18 06:25 O2 Sat by Pulse Oximetry (%) Assessment: 07/27/18 09:27 withdrawal symptom Plan: continue detox
[2018-07-27] MEDS: PRENATAL VITAMINS W/ FOLIC ACID TABLET (FP) PO SCH (10:16)
[2018-07-27] MEDS: HYDROCORTISONE 1% TOPICAL CREAM 30 GM TUBE TP SCH ×2 (10:16→22:21)
--- NOTE | 2018-07-27 10:24 | PN ---
[facility] Progress Note Note: patient would like regimen to be changed to valium
[2018-07-27] MEDS: diazePAM 5 MG TABLET PO PRN ×2 (12:13→17:42)
[2018-07-27] MEDS: diazePAM 5 MG TABLET PO SCH ×2 (13:16→22:21)
[2018-07-27] MEDS: traZODone HCL 50 MG TABLET (FP) PO SCH (22:20)
[2018-07-27] MEDS: hydrOXYzine PAMOATE 25 MG CAPSULE (FP) PO PRN (22:20)
[2018-07-27] MEDS: THIAMINE HCL 100 MG TABLET (FP) PO SCH (22:22)
[2018-07-27] MEDS ORDERED: chlordiazePOXIDE HCL 10 MG CAPSULE PO SCH (23:00)
[2018-07-27] MEDS ORDERED: chlordiazePOXIDE HCL 10 MG CAPSULE PO PRN (23:00)
[2018-07-28] MEDS ORDERED: METHADONE HCL 10 MG TABLET ONE (05:33)
[2018-07-28] MEDS ORDERED: METHADONE HCL 40 MG DISPERSABLE TABLET ONE (05:33)
[2018-07-28] MEDS: GABAPENTIN 100 MG CAPSULE (FP) PO SCH ×3 (05:36→22:06)
[2018-07-28] MEDS: METHADONE 40 MG, METHADONE 30 MG PO SCH (05:36)
[2018-07-28] MEDS: diazePAM 5 MG TABLET PO SCH ×3 (05:37→22:06)
[2018-07-28] MEDS: NICOTINE POLACRILEX 4 MG GUM BUC PRN ×3 (09:25→22:08)
[2018-07-28] MEDS: diazePAM 5 MG TABLET PO PRN ×3 (09:34→21:08)
[2018-07-28] MEDS: PRENATAL VITAMINS W/ FOLIC ACID TABLET (FP) PO SCH (09:34)
[2018-07-28] MEDS: METHOCARBAMOL 500 MG TABLET PO PRN ×2 (09:36→17:10)
[2018-07-28] MEDS: HYDROCORTISONE 1% TOPICAL CREAM 30 GM TUBE TP SCH ×2 (09:39→22:07)
--- NOTE | 2018-07-28 12:05 | PN ---
[facility] Progress Note (SOAP) Subjective: shakes sweats diarrhea generalized body pain Objective: 07/28/18 12:14 A & O x 3 Redness noted to R eye, no discharges, able to see out of the eye, denies pain ( states he was seen for it at the ED prior to coming in for detox). No acute distress noted Vital Signs Temperature 98.6 F 07/28/18 13:23 Pulse Rate 62 07/28/18 13:23 Respiratory Rate 18 07/28/18 13:23 Blood Pressure 119/90 07/28/18 13:23 O2 Sat by Pulse Oximetry (%) Laboratory Last Values WBC 4.5 K/mm3 (4.0-10.0) 07/26/18 07:00 RBC 4.22 M/mm3 (4.00-5.60) 07/26/18 07:00 Hgb 12.7 GM/dL (11.7-16.9) 07/26/18 07:00 Hct 38.9 % (35.4-49) 07/26/18 07:00 MCV 92.3 fl (80-96) 07/26/18 07:00 MCH 30.2 pg (25.7-33.7) 07/26/18 07:00 MCHC 32.7 g/dl (32.0-35.9) 07/26/18 07:00 RDW 13.4 % (11.9-15.9) 07/26/18 07:00 Plt Count 203 K/MM3 (134-434) 07/26/18 07:00 MPV 11.0 fl (7.5-11.1) D 07/26/18 07:00 Sodium 143 mmol/L (136-145) 07/26/18 07:00 Potassium 4.0 mmol/L (3.5-5.1) 07/26/18 07:00 Chloride 108 mmol/L (98-107) H 07/26/18 07:00 Carbon Dioxide 28 mmol/L (21-32) 07/26/18 07:00 Anion Gap 7 MMOL/L (8-16) L 07/26/18 07:00 BUN 18 mg/dL (7-18) 07/26/18 07:00 Creatinine 0.9 mg/dL (0.55-1.3) 07/26/18 07:00 Creat Clearance w eGFR 97.79 (>60) 07/26/18 07:00 Random Glucose 103 mg/dL (74-106) 07/26/18 07:00 Calcium 8.6 mg/dL (8.5-10.1) 07/26/18 07:00 Total Bilirubin 0.3 mg/dL (0.2-1) 07/26/18 07:00 AST 12 U/L (15-37) L 07/26/18 07:00 ALT 27 U/L (13-61) 07/26/18 07:00 Alkaline Phosphatase 47 U/L (45-117) 07/26/18 07:00 Total Protein 6.1 g/dl (6.4-8.2) L 07/26/18 07:00 Albumin 3.0 g/dl (3.4-5.0) L 07/26/18 07:00 RPR Titer Nonreactive (NONREACTIVE) 07/26/18 07:00 07/28/18 13:33 Assessment: 07/28/18 13:29 withdrawal sx subconjuctival hemorrhage Plan: continue detox artificial tears for the Subconjuctival hemorrhage
[2018-07-28] MEDS ORDERED: ARTIFICIAL TEARS (POLYVINYL ALCOHOL) OPTH DROPS OU PRN (13:35)
[2018-07-28] MEDS: hydrOXYzine PAMOATE 25 MG CAPSULE (FP) PO PRN (22:06)
[2018-07-28] MEDS: THIAMINE HCL 100 MG TABLET (FP) PO SCH (22:06)
[2018-07-28] MEDS: traZODone HCL 50 MG TABLET (FP) PO SCH (22:07)
[2018-07-28] MEDS ORDERED: chlordiazePOXIDE HCL 10 MG CAPSULE PO SCH (23:00)
[2018-07-29] MEDS ORDERED: METHADONE HCL 40 MG DISPERSABLE TABLET ONE (04:10)
[2018-07-29] MEDS ORDERED: METHADONE HCL 10 MG TABLET ONE (04:11)
[2018-07-29] MEDS: GABAPENTIN 100 MG CAPSULE (FP) PO SCH (05:44)
[2018-07-29] MEDS: METHADONE 40 MG, METHADONE 30 MG PO SCH (05:44)
[2018-07-29] MEDS ORDERED: diazePAM 5 MG TABLET PO ONE (06:00)
[2018-07-29 09:18] VITALS: BP 117/78; PULSE 79; TEMP 98.2
--- NOTE | 2018-07-29 11:05 | DS ---
[facility] Detox Discharge Summary Admission Date: 07/25/18 Discharge Date: 07/29/18 - History Present History: Alcohol Dependence, Cannabis Dependence, Cocaine Dependence, Opioid Dependence, MMTP Additional Comments: Patient completed detox successfully and was discharged safely. Patient is A/A/ Ox3, in nad, vss, ambulatory. Patient instructed to follow up with his PCP within 1-2 weeks. Pertinent Past History: Seizure disorder Hepatitis C (never treated) Alcohol dependence Cocaine use disorder Cannabis use disorder Opioid dependence on MMTP Nicotine dependence Anxiety disorder Depression - Physical Exam Results Vital Signs: Vital Signs Temperature 98.2 F 07/29/18 09:18 Pulse Rate 79 07/29/18 09:18 Respiratory Rate 18 07/29/18 09:18 Blood Pressure 117/78 07/29/18 09:18 O2 Sat by Pulse Oximetry (%) Pertinent Admission Physical Exam Findings: Withdrawal symptoms Laboratory Tests 07/26/18 07/26/18 07/26/18 07:00 07:00 07:00 WBC 4.5 RBC 4.22 Hgb 12.7 Hct 38.9 MCV 92.3 MCH 30.2 MCHC 32.7 RDW 13.4 Plt Count 203 MPV 11.0 D Sodium 143 Potassium 4.0 Chloride 108 H Carbon Dioxide 28 Anion Gap 7 L BUN 18 Creatinine 0.9 Creat Clearance w eGFR 97.79 Random Glucose 103 Calcium 8.6 Total Bilirubin 0.3 AST 12 L ALT 27 Alkaline Phosphatase 47 Total Protein 6.1 L Albumin 3.0 L RPR Titer Nonreactive Labs reviewed - Treatment Hospital Course: Detox Protocol Followed, Detoxed Safely, Responded well, Discharged Condition Good - Medication Discharge Medications: Ambulatory Orders Gabapentin 100 mg PO TID 07/25/18 Methadone [Dolophine -] 70 mg PO DAILY 07/25/18 Trazodone HCl 100 mg PO HS 07/25/18 - Diagnosis (1) Opioid dependence on agonist therapy Status: Chronic (2) Alcohol dependence with uncomplicated withdrawal Status: Acute (3) Cannabis dependence Status: Chronic (4) Cocaine dependence Status: Chronic Qualifiers: Substance use status: uncomplicated Qualified Code(s): F14.20 - Cocaine dependence, uncomplicated (5) Hepatitis C Status: Chronic (6) Anxiety and depression Status: Chronic (7) Nicotine dependence Status: Chronic Qualifiers: Nicotine product type: cigarettes Substance use status: uncomplicated Qualified Code(s): F17.210 - Nicotine dependence, cigarettes, uncomplicated (8) Seizure Status: Chronic - AMA Did Patient Leave Against Medical Advice: No (F/U with PCP within 1-2 weeks)
== END 2018-07-29 09:39 | disposition home or self-care (01) | DRG 774 ==
LOC: YASAS 17:15 → Y6N 21:09
PROVIDERS: ADMIT Surgery; ATTEND Surgery
PROC: HZ2ZZZZ Detoxification Services for Substance Abuse Treatment (ICD-10-PCS; principal; 2018-07-25)
DX: F10.230 Alcohol dependence with withdrawal, uncomplicated (principal); F14.20 Cocaine dependence, uncomplicated; F12.20 Cannabis dependence, uncomplicated; F17.210 Nicotine dependence, cigarettes, uncomplicated; F19.282 Other psychoactive substance dependence with psychoactive substance-induced sleep disorder; F41.8 Other specified anxiety disorders; F32.9 Major depressive disorder, single episode, unspecified; B18.2 Chronic viral hepatitis C; H11.31 Conjunctival hemorrhage, right eye; Z86.69 Personal history of other diseases of the nervous system and sense organs
CPT/HCPCS: 36415; 80053; 85027; 86593

== ENCOUNTER 2018-08-18 11:50 | Inpatient (IN) | payer OTHER ==
[2018-08-18 13:06] VITALS: BMI 23.6
--- NOTE | 2018-08-18 13:52 | HP ---
CIWA Score Nausea/Vomitin Muscle Tremors: 4-Moderate,w/Arms Extend Anxiety: 4-Mod. Anxious/Guarded Agitation: 1-Slight > Activity Paroxysmal Sweats: 1-Minimal Palms Moist Orientation: 1-Uncertain about Date Tacttile Disturbances: 1-Very Mild Itch/Numbness Auditory Disturbances: 1-Very Mild Visual Disturbances: 1-Very Mild Sensitivity Headache: 2-Mild CIWA-Ar Total Score: 18 - Admission Criteria OASAS Guidelines: Admission for Medically Managed Detox: Requires at least one of the followin. CIWA greater than 12 2. Seizures within the past 24 hours 3. Delirium tremens within the past 24 hours 4. Hallucinations within the past 24 hours 5. Acute intervention needed for co occurring medical disorder 6. Acute intervention needed for co occurring psychiatric disorder 7. Severe withdrawal that cannot be handled at a lower level of care (continued vomiting, continued diarrhea, abnormal vital signs) requiring intravenous medication and/or fluids 8. Patient presents the following: CIWA greater than 12 Admission Criteria Met: Admission criteria met Admission ROS S - [facility] Chief Complaint: The best time in my life was when I get clean, I have to get there again Allergies/Adverse Reactions: Allergies Allergy/AdvReac Type Severity Reaction Status Date / Time No Known Allergies Allergy Verified 08/18/18 13:23 History of Present Illness: 33 yo gentleman here for detox from benzos and alcohol. Patient is on methadone at [facility] (70mg) however he did not get dosed today or yesterday - dose unable to be verified today as program closed. Denies any overdose, does have black outs, history of seizure about 10 years ago. Patient uses intravenous fentanyl along with his methadone. Longest time sober is three years. He relapsed two years ago when his mother and cousin . He states he is at his lowest - lost his job, home and his family won't speak with him anymore and he wants to go back into recovery. Exam Limitations: Clinical Condition - Ebola screening Have you traveled outside of the country in the last 21 days: No Have you had contact with anyone from an Ebola affected area: No - Review of Systems Constitutional: Loss of Appetite, Malaise, Changes in sleep EENT: reports: Tearing, Nose Congestion Respiratory: reports: No Symptoms reported Cardiac: reports: No Symptoms Reported GI: reports: Poor Appetite, Indigestion, Abdominal cramping : reports: Dysuria Musculoskeletal: reports: Back Pain, Muscle Pain Integumentary: reports: No Symptoms Reported Neuro: reports: Headache Endocrine: reports: No Symptoms Reported Hematology: reports: No Symptoms Reported Psychiatric: reports: Judgement Intact, Mood/Affect Appropiate, Orientated x3, Anxious Other Systems: Reviewed and Negative Patient History - Patient Medical History Hx Anemia: No Hx Asthma: No Hx Chronic Obstructive Pulmonary Disease (COPD): No Hx Cancer: No Hx Cardiac Disorders: No Hx Congestive Heart Failure: No Hx Hypertension: No Hx Hypercholesterolemia: No Hx Pacemaker: No HX Cerebrovascular Accident: No Hx Seizures: Yes (LAST EPISODE IN 2012- Not on medication) Hx Dementia: No Hx Diabetes: No Hx Gastrointestinal Disorders: No Hx Liver Disease: Yes (hepatitis c) Hx Genitourinary Disorders: No Hx Sexually Transmitted Disorders: No Hx Renal Disease (ESRD): No Hx Thyroid Disease: No Hx Human Immunodeficiency Virus (HIV): No (NEGATIVE NOVEMBER 2017) Hx Hepatitis C: Yes (not treated) Hx Depression: Yes (with anxiety, no meds) Hx Suicide Attempt: No (Denies suicide attempt and suicidal ideation at this time) Hx Bipolar Disorder: Yes (hospitalized age 20 for PCP induced psychosis) Hx Schizophrenia: No - Patient Surgical History Past Surgical History: Yes Hx Neurologic Surgery: No Hx Cataract Extraction: No Hx Cardiac Surgery: No Hx Lung Surgery: No Hx Breast Surgery: No Hx Breast Biopsy: No Hx Abdominal Surgery: No Hx Appendectomy: No Hx Cholecystectomy: No Hx Genitourinary Surgery: No Hx Section: No Hx Orthopedic Surgery: Yes (BONE GRAFT LEFT HIP TO RIGHT SCAPHOID) Other Surgical History: SX TO SEPTUM DUE TO DIFFICULTY BREATHING IN 2000 Anesthesia Reaction: No - PPD History Previous Implant?: Yes Documented Results: Negative w/proof Implanted On Prior [facility] Admission?: Yes Date: 01/09/18 Results: 0 MM PPD to be Administered?: No - Reproductive History Patient is a Female of Child Bearing Age (11 -55 yrs old): No (male) - Smoking Cessation Smoking history: Current every day smoker Have you smoked in the past 12 months: Yes Aproximately how many cigarettes per day: 20 Cigars Per Day: 0 Hx Chewing Tobacco Use: No Initiated information on smoking cessation: Yes 'Breaking Loose' booklet given: 08/18/18 (give on floor) - Substance & Tx. History Hx Alcohol Use: Yes Hx Substance Use: Yes Substance Use Type: Alcohol, Cocaine, Heroin, Marijuana, Opiates, Tranquilizers Hx Substance Use Treatment: Yes - Substances abused Heroin Substance route: Injection Frequency: Daily Amount used: 10 bags Age of first use: 19 Date of last use: 08/17/18 Alcohol Substance route: Oral Frequency: Daily Amount used: 1 PINT Age of first use: 17 Date of last use: 08/18/18 Alprazolam (Xanax) Substance route: Oral Frequency: Daily Amount used: 4 MG Age of first use: 17 Date of last use: 08/15/18 Benzodiazepine (Klonopin) Substance route: Oral Frequency: Daily Amount used: 8 MG Age of first use: 17 Date of last use: 08/16/18 Other Other (specify): FENTANYL IV Substance route: Injection Frequency: Daily Amount used: 1 GRAM Age of first use: 31 Date of last use: 08/17/18 Marijuana/Hashish Substance route: Smoking Frequency: Daily Amount used: 1 gm Age of first use: 15 Date of last use: 08/17/18 Crack Substance route: Smoking Frequency: Daily Amount used: $50 Age of first use: 16 Date of last use: 08/15/18 Family Disease History - Family Disease History Family Disease History: Heart Disease: Mother ( - [place], CVA, smoked pot), Other: Father (HEROIN ADDICTION,living), Mother, Brother (ALCOHOLISM), Sister ( one - healthy) Admission Physical Exam S - Vital Signs Vital Signs: Vital Signs - 24 hr 08/18/18 08/18/18 13:04 13:24 Temperature 98.6 F 98.6 F Pulse Rate 78 78 Respiratory 18 18 Rate Blood Pressure 119/72 119/72 - Physical General Appearance: Yes: Nourished, Appropriately Dressed, Moderate Distress, Thin, Tremorous, Anxious HEENTM: Yes: EOMI, Hearing grossly Normal, Normocephalic, Normal Voice, Pharynx Normal, Nasal Congestion, Rhinorrhea Respiratory: Yes: Normal Breath Sounds, No Respiratory Distress Neck: Yes: No masses,lesions,Nodules, Supple Breast: Yes: Breast Exam Deferred Cardiology: Yes: Regular Rhythm, Regular Rate Abdominal: Yes: Non Tender, Flat, Soft Genitourinary: Yes: Within Normal Limits Back: Yes: Normal Inspection Musculoskeletal: Yes: full range of Motion, Gait Steady, Back pain, Muscle Pain Extremities: Yes: Normal Inspection, Normal Range of Motion, Non-Tender 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: Yes: Fully Oriented, Alert, Motor Strength 5/5, Normal Mood/Affect , Normal Response, Numbness Integumentary: Yes: Normal Color, Warm, Other (lesion base of scalp, nickel size , scabbed, itchy) Lymphatic: Yes: Within Normal Limits - Diagnostic (1) Sedative, hypnotic or anxiolytic dependence, uncomplicated Current Visit: Yes Status: Acute (2) Alcohol dependence with uncomplicated withdrawal Current Visit: Yes Status: Acute (3) Methadone maintenance therapy patient Current Visit: Yes Status: Chronic (4) IVDU (intravenous drug user) Current Visit: Yes Status: Chronic (5) Weight loss Current Visit: Yes Status: Chronic (6) Cocaine dependence Current Visit: Yes Status: Chronic Qualifiers: Substance use status: uncomplicated Qualified Code(s): F14.20 - Cocaine dependence, uncomplicated (7) Hepatitis C Current Visit: Yes Status: Chronic Qualifiers: Viral hepatitis chronicity: chronic Hepatic coma status: without hepatic coma Qualified Code(s): B18.2 - Chronic viral hepatitis C (8) Nicotine dependence Current Visit: Yes Status: Chronic Qualifiers: Nicotine product type: cigarettes Substance use status: uncomplicated Qualified Code(s): F17.210 - Nicotine dependence, cigarettes, uncomplicated (9) Neuropathy Current Visit: Yes Status: Acute (10) Skin lesion of scalp Current Visit: Yes Status: Chronic Comment: states it was a big 'pimple' that popped (11) Cannabis dependence Current Visit: Yes Status: Chronic Cleared for Admission [facility] - Detox or Rehab [facility] Level of Care: Medically Managed Detox Regimen/Protocol: Valium Breathalyzer - Breathalyzer Breathalyzer: 0 Urine Drug Screen - Test Device Lot number: [id number] Expiration date: 03/23/20 - Control Is test valid?: Yes - Results Drug screen NEGATIVE: No Urine drug screen results: THC-Marijuana, BARBARA-Cocaine, MET-Methamphetamine, AMP- Amphetamines, FEN-Fentanyl, MOP-Opiates, BZO-Benzodiazepines Inpatient Rehab Admission - Rehab Decision to Admit Inpatient rehab admission?: No
[2018-08-18] MEDS ORDERED: MENTHOL/PHENOL 1 EACH UD MM PRN (14:06)
[2018-08-18] MEDS ORDERED: MAGNESIUM CITRATE 300 ML BOTTLE PO PRN (14:06)
[2018-08-18] MEDS ORDERED: MAGNESIUM HYDROX 2400MG/30ML ORAL SUSPENSION 30 ML CUP PO PRN (14:06)
[2018-08-18] MEDS ORDERED: MAG HYDROX/AL HYDROX/SIMETH 30 ML UNIT-DOSE CUP PO PRN (14:06)
[2018-08-18] MEDS ORDERED: diazePAM 5 MG TABLET PO ONE (14:06)
[2018-08-18] MEDS ORDERED: IBUPROFEN 400 MG TABLET (FP) PO PRN (14:06)
[2018-08-18] MEDS ORDERED: ACETAMINOPHEN 325 MG TABLET (FP) PO PRN ×2 (14:06)
[2018-08-18] MEDS ORDERED: BISMUTH SUBSALICYLATE 524 MG/30 ML UD PO PRN (14:06)
[2018-08-18] MEDS ORDERED: METHADONE HCL 10 MG TABLET (FOR DETOX USE ONLY) PO ONE ×2 (14:45→15:15)
[2018-08-18] MEDS: METHOCARBAMOL 500 MG TABLET PO PRN (14:59)
[2018-08-18] MEDS: GABAPENTIN 300 MG CAPSULE (FP) PO SCH ×2 (14:59→22:02)
[2018-08-18] MEDS: NICOTINE POLACRILEX 4 MG GUM BUC PRN ×3 (15:01→21:30)
[2018-08-18] MEDS: diazePAM 5 MG TABLET PO PRN (19:17)
[2018-08-18] MEDS: THIAMINE HCL 100 MG TABLET (FP) PO SCH (22:03)
[2018-08-18] MEDS: traZODone HCL 50 MG TABLET (FP) PO SCH (22:03)
[2018-08-18] MEDS: MUPIROCIN 2% TOPICAL OINTMENT 22 GM TUBE TP SCH (22:03)
[2018-08-18] MEDS: diazePAM 5 MG TABLET PO SCH (22:03)
[2018-08-19] MEDS: diazePAM 5 MG TABLET PO SCH ×3 (05:36→22:03)
[2018-08-19] MEDS: NICOTINE POLACRILEX 4 MG GUM BUC PRN ×4 (05:38→22:05)
[2018-08-19] MEDS: GABAPENTIN 300 MG CAPSULE (FP) PO SCH ×3 (05:56→22:03)
[2018-08-19] MEDS ORDERED: METHADONE HCL 10 MG TABLET ONE (09:10)
[2018-08-19] MEDS ORDERED: METHADONE HCL 40 MG DISPERSABLE TABLET ONE (09:10)
[2018-08-19] MEDS: PRENATAL VITAMINS W/ FOLIC ACID TABLET (FP) PO SCH (09:14)
[2018-08-19] MEDS: diazePAM 5 MG TABLET PO PRN ×2 (09:14→17:27)
[2018-08-19] MEDS ORDERED: METHADONE 40 MG, METHADONE 30 MG PO ONE (09:15)
[2018-08-19] MEDS: MUPIROCIN 2% TOPICAL OINTMENT 22 GM TUBE TP SCH ×2 (09:16→22:05)
--- NOTE | 2018-08-19 09:39 | PN ---
S CIWA - CIWA Score Nausea/Vomitin-Mild Nausea/No Vomiting Muscle Tremors: 2 Anxiety: 4-Mod. Anxious/Guarded Agitation: 3 Paroxysmal Sweats: 1-Minimal Palms Moist Orientation: 1-Uncertain about Date Tacttile Disturbances: 0-None Auditory Disturbances: 0-None Visual Disturbances: 0-None Headache: 0-None Present CIWA-Ar Total Score: 12 [facility] Progress Note (SOAP) Subjective: reporting that last dose methadone 08/16/18 and was using fen on the street patient preferring methadone 70 mg today that he can not access to fen IV today Objective: 08/19/18 09:41 Vital Signs Temperature 98.1 F 08/19/18 09:17 Pulse Rate 75 08/19/18 09:17 Respiratory Rate 18 08/19/18 09:17 Blood Pressure 106/62 08/19/18 09:17 O2 Sat by Pulse Oximetry (%) 08/19/18 09:41 lab pending Assessment: 08/19/18 09:41 withdrawal sx Plan: continue detox
[2018-08-19] MEDS ORDERED: METHADONE HCL 10 MG TABLET PO ONE (10:00)
[2018-08-19 10:56] LABS: HEMATOCRIT 39.7 % (35.4-49); HEMOGLOBIN 13.4 GM/dL (11.7-16.9); MCH 30.9 pg (25.7-33.7); MCHC 33.6 g/dl (32.0-35.9); MEAN PLT VOLUME 10.3 fl (7.5-11.1); PLATELET COUNT 203 K/MM3 (134-434); RBC 4.32 M/mm3 (4.00-5.60); RDW 13.9 % (11.9-15.9); WHITE BLOOD COUNT 4.8 K/mm3 (4.0-10.0)
[2018-08-19 11:00] LABS: ALBUMIN 3.2 g/dl (3.4-5.0); ALK PHOS 49 U/L (45-117); ANION GAP 6 MMOL/L (8-16); BILIRUBIN,TOTAL 0.3 mg/dL (0.2-1); BLOOD UREA NITROGEN 15 mg/dL (7-18); CALCIUM 8.7 mg/dL (8.5-10.1); CHLORIDE 106 mmol/L (98-107); CO2 28 mmol/L (21-32); CREATININE 0.9 mg/dL (0.55-1.3); GLUCOSE,RANDOM 92 mg/dL (74-106); POTASSIUM 4.1 mmol/L (3.5-5.1); SGOT/AST 28 U/L (15-37); SGPT/ALT 63 U/L (13-61); SODIUM 140 mmol/L (136-145); TOT PROT 6.3 g/dl (6.4-8.2)
[2018-08-19] MEDS ORDERED: COLLOIDAL OATMEAL 1 BAR EACH TP PRN (11:48)
--- NOTE | 2018-08-19 12:05 | CONSULT ---
[facility] Psychiatric Consult - Data Date of interview: 08/19/18 Admission source: Self-referred Identifying data: 33 y/o male single, no children, unemployed, homeless on public assistance Substance Abuse History: This is one his mutiple detox admissions to [facility] due to muleiple substances use: Alcohol, Marijuana,Benzodiazepines ( klonopin , Xanax) cocaine, opiates and IV Fentanyl. His most recent admission @ [facility] was last month. He reported a history of benzodiazepine withdrwal. Patient has an extensive history of substance use , refer to addiction counselor summary for more details Medical History: Hep C. Surgical fixation of basal septum deviation. Bone graft left hip to right scaphoid Psychiatric History: Patient recalled a past psychiatric admission at age 20 for PCP induced psychosis @ [facility]. He was also given a diagnosis of MDD/ anxiety. He has been on and off medciations for past 3 years. He is prescribed Trazodone and Wellbutrin at an [facility]. He is on Methadone maintenace 70 mg po daily. Past medications treatment: Xanax, Klonopin, Gabapentin. He denies depression, anxiety or amnia , denies psychosis denies sucidal or homicidal ideation Physical/Sexual Abuse/Trauma History: Denied Mental Status Exam - Mental Status Exam Alert and Oriented to: Time, Place, Person Cognitive Function: Good Patient Appearance: Unkempt Mood: Euthymic Affect: Appropriate Patient Behavior: Appropriate, Cooperative Speech Pattern: Appropriate Voice Loudness: Normal Thought Process: Intact Thought Disorder: Not Present Hallucinations: Denies Suicidal Ideation: Denies Homicidal Ideation: Denies Insight/Judgement: Poor Sleep: Fair Appetite: Fair Muscle strength/Tone: Normal Gait/Station: Normal Psychiatric Findings - Problem List ([place] 1, 2,3) (1) Alcohol dependence with uncomplicated withdrawal Current Visit: Yes Status: Acute (2) Cannabis dependence Current Visit: Yes Status: Chronic (3) Cocaine dependence Current Visit: Yes Status: Chronic Qualifiers: Substance use status: uncomplicated Qualified Code(s): F14.20 - Cocaine dependence, uncomplicated (4) Methadone maintenance therapy patient Current Visit: Yes Status: Chronic (5) Nicotine dependence Current Visit: Yes Status: Chronic Qualifiers: Nicotine product type: cigarettes Substance use status: uncomplicated Qualified Code(s): F17.210 - Nicotine dependence, cigarettes, uncomplicated (6) Insomnia secondary to depression with anxiety Current Visit: No Status: Acute (7) Opioid dependence with withdrawal Current Visit: No Status: Acute (8) Substance-induced anxiety disorder Current Visit: No Status: Acute (9) Substance-induced sleep disorder Current Visit: No Status: Acute (10) Heroin abuse Current Visit: No Status: Chronic - Initial Treatment Plan Initial Treatment Plan: Continue detoc treatment. Continue Trazodone 50 mg po q hs. Wellbutrin SR 300 mg po daily. Monitor response
[2018-08-19] MEDS: traZODone HCL 50 MG TABLET (FP) PO SCH (22:03)
[2018-08-19] MEDS: MELATONIN 5 MG TABLETS PO PRN (22:03)
[2018-08-19] MEDS: THIAMINE HCL 100 MG TABLET (FP) PO SCH (22:03)
[2018-08-20] MEDS ORDERED: METHADONE HCL 10 MG TABLET ONE (04:43)
[2018-08-20] MEDS ORDERED: METHADONE HCL 40 MG DISPERSABLE TABLET ONE (04:43)
[2018-08-20] MEDS: METHADONE 40 MG, METHADONE 30 MG PO SCH (05:30)
[2018-08-20] MEDS: diazePAM 5 MG TABLET PO PRN ×3 (05:30→17:28)
[2018-08-20] MEDS: NICOTINE POLACRILEX 4 MG GUM BUC PRN ×4 (05:32→20:14)
[2018-08-20] MEDS ORDERED: METHADONE HCL 10 MG TABLET PO SCH (06:00)
[2018-08-20] MEDS: GABAPENTIN 300 MG CAPSULE (FP) PO SCH ×3 (06:03→22:05)
--- NOTE | 2018-08-20 08:45 | PN ---
[facility] CIWA - CIWA Score Nausea/Vomitin-Mild Nausea/No Vomiting Muscle Tremors: 3 Anxiety: 2 Agitation: 2 Paroxysmal Sweats: 1-Minimal Palms Moist Orientation: 0-Oriented Tacttile Disturbances: 0-None Auditory Disturbances: 0-None Visual Disturbances: 0-None Headache: 0-None Present CIWA-Ar Total Score: 9 S Progress Note (SOAP) Subjective: report having long history of anxiety seen by psychiatrist treated with wellbutrin and trazadone feeling ok today attend group and morning meeting otherwise doing ok Objective: 08/20/18 08:44 Vital Signs Temperature 96.8 F L 08/20/18 06:29 Pulse Rate 54 L 08/20/18 06:29 Respiratory Rate 18 08/20/18 06:29 Blood Pressure 100/61 08/20/18 06:29 O2 Sat by Pulse Oximetry (%) Laboratory Last Values WBC 4.8 K/mm3 (4.0-10.0) 08/19/18 07:00 RBC 4.32 M/mm3 (4.00-5.60) 08/19/18 07:00 Hgb 13.4 GM/dL (11.7-16.9) 08/19/18 07:00 Hct 39.7 % (35.4-49) 08/19/18 07:00 MCV 92.0 fl (80-96) 08/19/18 07:00 MCH 30.9 pg (25.7-33.7) 08/19/18 07:00 MCHC 33.6 g/dl (32.0-35.9) 08/19/18 07:00 RDW 13.9 % (11.9-15.9) 08/19/18 07:00 Plt Count 203 K/MM3 (134-434) 08/19/18 07:00 MPV 10.3 fl (7.5-11.1) 08/19/18 07:00 Sodium 140 mmol/L (136-145) 08/19/18 07:00 Potassium 4.1 mmol/L (3.5-5.1) 08/19/18 07:00 Chloride 106 mmol/L (98-107) 08/19/18 07:00 Carbon Dioxide 28 mmol/L (21-32) 08/19/18 07:00 Anion Gap 6 MMOL/L (8-16) L 08/19/18 07:00 BUN 15 mg/dL (7-18) 08/19/18 07:00 Creatinine 0.9 mg/dL (0.55-1.3) 08/19/18 07:00 Creat Clearance w eGFR 97.79 (>60) 08/19/18 07:00 Random Glucose 92 mg/dL (74-106) 08/19/18 07:00 Calcium 8.7 mg/dL (8.5-10.1) 08/19/18 07:00 Total Bilirubin 0.3 mg/dL (0.2-1) 08/19/18 07:00 AST 28 U/L (15-37) 08/19/18 07:00 ALT 63 U/L (13-61) H 08/19/18 07:00 Alkaline Phosphatase 49 U/L (45-117) 08/19/18 07:00 Total Protein 6.3 g/dl (6.4-8.2) L 08/19/18 07:00 Albumin 3.2 g/dl (3.4-5.0) L 08/19/18 07:00 RPR Titer Nonreactive (NONREACTIVE) 08/19/18 07:00 lab noted Assessment: 08/20/18 08:44 alcohol and benzo withdrawal sx Plan: continue detox
[2018-08-20] MEDS: diazePAM 5 MG TABLET PO SCH ×2 (10:05→22:04)
[2018-08-20] MEDS: PRENATAL VITAMINS W/ FOLIC ACID TABLET (FP) PO SCH (10:05)
[2018-08-20] MEDS: MUPIROCIN 2% TOPICAL OINTMENT 22 GM TUBE TP SCH ×2 (10:06→22:05)
[2018-08-20] MEDS: THIAMINE HCL 100 MG TABLET (FP) PO SCH (22:04)
[2018-08-20] MEDS: traZODone HCL 50 MG TABLET (FP) PO SCH (22:05)
[2018-08-20] MEDS: METHOCARBAMOL 500 MG TABLET PO PRN (22:05)
[2018-08-20] MEDS: MELATONIN 5 MG TABLETS PO PRN (22:06)
[2018-08-21] MEDS ORDERED: METHADONE HCL 10 MG TABLET ONE (04:01)
[2018-08-21] MEDS ORDERED: METHADONE HCL 40 MG DISPERSABLE TABLET ONE (04:01)
[2018-08-21] MEDS: METHADONE 40 MG, METHADONE 30 MG PO SCH (05:35)
[2018-08-21] MEDS: NICOTINE POLACRILEX 4 MG GUM BUC PRN ×2 (05:38→09:50)
[2018-08-21] MEDS ORDERED: diazePAM 5 MG TABLET PO SCH (06:00)
[2018-08-21 06:10] VITALS: BP 97/61; PULSE 64; TEMP 97.3
[2018-08-21] MEDS: GABAPENTIN 300 MG CAPSULE (FP) PO SCH (06:41)
--- NOTE | 2018-08-21 09:01 | DS ---
[facility] Detox Discharge Summary Admission Date: 08/18/18 Discharge Date: 08/21/18 - History Present History: Alcohol Dependence, Sedative Dependence Additional Comments: 33 years old male admitted on 08/18/18 for alcohol and benzo withdrawal stabilization feeling better today has court date today would like to return to [facility] admission alert no acute distress denies suicidal ideation patient agrees to return to methadone program and bring in medication list and lab report to follow up appointment - Physical Exam Results Vital Signs: Vital Signs Temperature 97.3 F L 08/21/18 06:09 Pulse Rate 64 08/21/18 06:09 Respiratory Rate 18 08/21/18 06:30 Blood Pressure 97/61 08/21/18 06:09 O2 Sat by Pulse Oximetry (%) Pertinent Admission Physical Exam Findings: alcohol and benzo withdrawal sx Laboratory Last Values WBC 4.8 K/mm3 (4.0-10.0) 08/19/18 07:00 RBC 4.32 M/mm3 (4.00-5.60) 08/19/18 07:00 Hgb 13.4 GM/dL (11.7-16.9) 08/19/18 07:00 Hct 39.7 % (35.4-49) 08/19/18 07:00 MCV 92.0 fl (80-96) 08/19/18 07:00 MCH 30.9 pg (25.7-33.7) 08/19/18 07:00 MCHC 33.6 g/dl (32.0-35.9) 08/19/18 07:00 RDW 13.9 % (11.9-15.9) 08/19/18 07:00 Plt Count 203 K/MM3 (134-434) 08/19/18 07:00 MPV 10.3 fl (7.5-11.1) 08/19/18 07:00 Sodium 140 mmol/L (136-145) 08/19/18 07:00 Potassium 4.1 mmol/L (3.5-5.1) 08/19/18 07:00 Chloride 106 mmol/L (98-107) 08/19/18 07:00 Carbon Dioxide 28 mmol/L (21-32) 08/19/18 07:00 Anion Gap 6 MMOL/L (8-16) L 08/19/18 07:00 BUN 15 mg/dL (7-18) 08/19/18 07:00 Creatinine 0.9 mg/dL (0.55-1.3) 08/19/18 07:00 Creat Clearance w eGFR 97.79 (>60) 08/19/18 07:00 Random Glucose 92 mg/dL (74-106) 08/19/18 07:00 Calcium 8.7 mg/dL (8.5-10.1) 08/19/18 07:00 Total Bilirubin 0.3 mg/dL (0.2-1) 08/19/18 07:00 AST 28 U/L (15-37) 08/19/18 07:00 ALT 63 U/L (13-61) H 08/19/18 07:00 Alkaline Phosphatase 49 U/L (45-117) 08/19/18 07:00 Total Protein 6.3 g/dl (6.4-8.2) L 08/19/18 07:00 Albumin 3.2 g/dl (3.4-5.0) L 08/19/18 07:00 RPR Titer Nonreactive (NONREACTIVE) 08/19/18 07:00 lab noted - Treatment Hospital Course: Detox Protocol Followed, Detoxed Safely, Responded well, Discharged Condition Good, Rehab Referral Accepted Patient has Accepted a Rehab Referral to: [facility] - Medication Discharge Medications: Ambulatory Orders Methadone [Dolophine -] 70 mg PO DAILY 07/25/18 Trazodone HCl 100 mg PO HS 07/25/18 Gabapentin [Neurontin -] 300 mg PO Q8H 08/18/18 - Diagnosis (1) Alcohol dependence with uncomplicated withdrawal Current Visit: Yes Status: Acute (2) Sedative, hypnotic or anxiolytic dependence, uncomplicated Current Visit: Yes Status: Acute (3) Hepatitis C Current Visit: Yes Status: Chronic Qualifiers: Viral hepatitis chronicity: chronic Hepatic coma status: without hepatic coma Qualified Code(s): B18.2 - Chronic viral hepatitis C (4) Methadone maintenance therapy patient Current Visit: Yes Status: Chronic (5) Nicotine dependence Current Visit: Yes Status: Acute Qualifiers: Nicotine product type: cigarettes Substance use status: in withdrawal Qualified Code(s): F17.213 - Nicotine dependence, cigarettes, with withdrawal (6) Weight loss Current Visit: Yes Status: Acute - AMA Did Patient Leave Against Medical Advice: No
[2018-08-21] MEDS: MUPIROCIN 2% TOPICAL OINTMENT 22 GM TUBE TP SCH (09:47)
[2018-08-21] MEDS: PRENATAL VITAMINS W/ FOLIC ACID TABLET (FP) PO SCH (09:47)
== END 2018-08-21 11:10 | disposition home or self-care (01) | DRG 773 ==
LOC: YASAS 11:50 → Y3N 13:50 → UNDODISIN 08-21 09:21
PROVIDERS: ADMIT Surgery; ATTEND Surgery
PROC: HZ2ZZZZ Detoxification Services for Substance Abuse Treatment (ICD-10-PCS; principal; 2018-08-18)
DX: F10.230 Alcohol dependence with withdrawal, uncomplicated (principal); F11.20 Opioid dependence, uncomplicated; F14.20 Cocaine dependence, uncomplicated; F12.20 Cannabis dependence, uncomplicated; F17.213 Nicotine dependence, cigarettes, with withdrawal; F51.05 Insomnia due to other mental disorder; F19.280 Other psychoactive substance dependence with psychoactive substance-induced anxiety disorder; F19.282 Other psychoactive substance dependence with psychoactive substance-induced sleep disorder; B18.2 Chronic viral hepatitis C; R63.4 Abnormal weight loss; Z68.23 Body mass index [BMI] 23.0-23.9, adult; Z86.69 Personal history of other diseases of the nervous system and sense organs
CPT/HCPCS: 36415; 80053; 85027; 86593

== ENCOUNTER 2019-05-26 14:45 | Inpatient (IN) | payer OTHER ==
[2019-05-26 16:53] VITALS: BMI 25.1
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
[2019-05-26] MEDS ORDERED: MAGNESIUM CITRATE 300 ML BOTTLE PO PRN (17:50)
[2019-05-26] MEDS ORDERED: guaiFENesin 200 MG/10 ML 10 ML UNIT-DOSE CUPS PO PRN (17:50)
[2019-05-26] MEDS ORDERED: MAGNESIUM HYDROX 2400MG/30ML ORAL SUSPENSION 30 ML CUP PO PRN (17:50)
[2019-05-26] MEDS ORDERED: ACETAMINOPHEN 325 MG TABLET (FP) PO PRN ×2 (17:50)
[2019-05-26] MEDS ORDERED: BISMUTH SUBSALICYLATE 524 MG/30 ML UD PO PRN (17:50)
[2019-05-26] MEDS ORDERED: MAG HYDROX/AL HYDROX/SIMETH 30 ML UNIT-DOSE CUP PO PRN (17:50)
[2019-05-26] MEDS ORDERED: MENTHOL/PHENOL 1 EACH UD MM PRN (17:50)
[2019-05-26] MEDS ORDERED: IBUPROFEN 400 MG TABLET (FP) PO PRN (17:50)
[2019-05-26] MEDS: LORazepam 2 MG TABLET PO SCH ×2 (18:48→22:27)
[2019-05-26] MEDS: NICOTINE POLACRILEX 2 MG GUM BUC PRN ×2 (18:49→22:29)
[2019-05-26] MEDS: THIAMINE HCL 100 MG TABLET (FP) PO SCH (22:27)
[2019-05-27] MEDS: LORazepam 1 MG TABLET PO PRN ×2 (02:01→12:08)
[2019-05-27] MEDS: NICOTINE POLACRILEX 2 MG GUM BUC PRN ×5 (02:01→22:15)
[2019-05-27] MEDS: LORazepam 2 MG TABLET PO SCH ×2 (06:05→10:10)
[2019-05-27] MEDS ORDERED: METHADONE HCL 10 MG TABLET ONE (09:55)
[2019-05-27] MEDS ORDERED: METHADONE HCL 40 MG DISPERSABLE TABLET ONE (09:56)
[2019-05-27] MEDS ORDERED: METHADONE 40 MG, METHADONE 30 MG PO ONE (10:00)
[2019-05-27] MEDS ORDERED: METHADONE HCL 10 MG TABLET PO ONE (10:00)
[2019-05-27 10:06] LABS: HEMATOCRIT 37.9 % (35.4-49); HEMOGLOBIN 12.4 GM/dL (11.7-16.9); MCH 30.2 pg (25.7-33.7); MCHC 32.8 g/dl (32.0-35.9); MEAN CELL VOLUME 92.1 fl (80-96); MEAN PLT VOLUME 10.4 fl (7.5-11.1); PLATELET COUNT 233 K/MM3 (134-434); RBC 4.11 M/mm3 (4.00-5.60); RDW 13.8 % (11.9-15.9); WHITE BLOOD COUNT 7.1 K/mm3 (4.0-10.0)
[2019-05-27] MEDS: PRENATAL VITAMINS W/ FOLIC ACID TABLET (FP) PO SCH (10:09)
[2019-05-27 10:23] LABS: ALBUMIN 3.2 g/dl (3.4-5.0); BILIRUBIN,TOTAL 0.3 mg/dL (0.2-1); BLOOD UREA NITROGEN 13.3 mg/dL (7-18); POTASSIUM 4.1 mmol/L (3.5-5.1); TOT PROT 6.4 g/dl (6.4-8.2)
--- NOTE | 2019-05-27 13:14 | PN ---
S CIWA - CIWA Score Nausea/Vomitin-Mild Nausea/No Vomiting Muscle Tremors: 3 Anxiety: 4-Mod. Anxious/Guarded Agitation: 1-Slight > Activity Paroxysmal Sweats: 2 Orientation: 0-Oriented Tacttile Disturbances: 0-None Auditory Disturbances: 0-None Visual Disturbances: 1-Very Mild Sensitivity Headache: 2-Mild CIWA-Ar Total Score: 14 BHS Progress Note (SOAP) Subjective: 33 years old male admitted on 05/26/19 for alcohol and benzo withdrawal sx management treating with ativan detox regiment requests valium that valium gives him better feelings that Mr. Sung can sleep and resting discontinue ativan and replaced by valium Objective: 05/27/19 13:13 Vital Signs Temperature 96.5 F L 05/27/19 08:33 Pulse Rate 80 05/27/19 08:33 Respiratory Rate 16 05/27/19 08:33 Blood Pressure 95/60 05/27/19 08:33 O2 Sat by Pulse Oximetry (%) Laboratory Last Values WBC 7.1 K/mm3 (4.0-10.0) 05/27/19 07:30 RBC 4.11 M/mm3 (4.00-5.60) 05/27/19 07:30 Hgb 12.4 GM/dL (11.7-16.9) 05/27/19 07:30 Hct 37.9 % (35.4-49) 05/27/19 07:30 MCV 92.1 fl (80-96) 05/27/19 07:30 MCH 30.2 pg (25.7-33.7) 05/27/19 07:30 MCHC 32.8 g/dl (32.0-35.9) 05/27/19 07:30 RDW 13.8 % (11.9-15.9) 05/27/19 07:30 Plt Count 233 K/MM3 (134-434) 05/27/19 07:30 MPV 10.4 fl (7.5-11.1) 05/27/19 07:30 Sodium 140 mmol/L (136-145) 05/27/19 07:30 Potassium 4.1 mmol/L (3.5-5.1) 05/27/19 07:30 Chloride 106 mmol/L (98-107) 05/27/19 07:30 Carbon Dioxide 29 mmol/L (21-32) 05/27/19 07:30 Anion Gap 5 MMOL/L (8-16) L 05/27/19 07:30 BUN 13.3 mg/dL (7-18) 05/27/19 07:30 Creatinine 1.0 mg/dL (0.55-1.3) 05/27/19 07:30 Est GFR (CKD-EPI)AfAm 114.91 05/27/19 07:30 Est GFR (CKD-EPI)NonAf 99.15 05/27/19 07:30 Random Glucose 104 mg/dL (74-106) 05/27/19 07:30 Calcium 9.0 mg/dL (8.5-10.1) 05/27/19 07:30 Total Bilirubin 0.3 mg/dL (0.2-1) 05/27/19 07:30 AST 38 U/L (15-37) H 05/27/19 07:30 ALT 72 U/L (13-61) H 05/27/19 07:30 Alkaline Phosphatase 60 U/L (45-117) 05/27/19 07:30 Total Protein 6.4 g/dl (6.4-8.2) 05/27/19 07:30 Albumin 3.2 g/dl (3.4-5.0) L 05/27/19 07:30 RPR Titer Nonreactive (NONREACTIVE) 05/27/19 07:30 lab noted Assessment: 05/27/19 13:13 alcohol and benzo withdrawal 05/27/19 13:14 methadone 70mg po daily Plan: valium regiment
--- NOTE | 2019-05-27 13:19 | CONSULT ---
[facility] Psychiatric Consult - Data Date of interview: 05/27/19 Admission source: [facility] Identifying data: Readmission to [address] [place] [address] for this 33 y/o male self- referred for detoxification treatment. HUNG issues : heroin, cannabis, benzodiazepines, nicotine. Patient is single without dependents, homeless, unemployed and supported on Public Assistance. Substance Abuse History: Discussed with this patient. Details in current [facility] report as follows : Smoking history: Current every day smoker. Have you smoked in the past 12 months: Yes. Aproximately how many cigarettes per day: 5. Cigars Per Day: 0. Hx Chewing Tobacco Use: No. Initiated information on smoking cessation: Yes. 'Breaking Loose' booklet given: 05/26/19. - Substances abused. Alcohol. Substance route: Oral. Frequency: 3-6 times per week. Amount used: 12 CANS OF BEER. Age of first use: 15. Date of last use: 05/25/19. Alprazolam (Xanax). Substance route: Oral. Frequency: Daily. Amount used: 5-10 MG. Age of first use: 17. Date of last use: . Other. Other (specify): FENTANYL. Substance route: Injection. Frequency: Daily. Amount used: 1 -2 BUNDLE. Age of first use: 19. Date of last use: 05/26/19 Medical History: Patient endorses good general health. Noted history of surgery for deviated nasal septum (2000), antecedent of withdrawal-related seizures and orthosurgery (bone graft of left hip to right wrist). Psychiatric History: Patient reports a history of one psychiatric hospitalization at the [facility]. Diagnosed, at the the time, with substance (PCP)-induced psychotic disorder. Re-diagnosed later with MDD and Anxiety Disorder. Mr Sung indicates that he has been prescribed psychostimulants (adderall) and benzodiazepines in the past. He admits to chronic non-adherence to medications + OPD care. Patient is currently on methadone maintenance (70 mg/day) at the [facility] in the [place]. Takes trazodone 50 mg/hs for insomnia. Patient denies history of suicide attempts. Physical/Sexual Abuse/Trauma History: Patient denies history of abuse. Additional Comment: Urine drug screen results: THC-Marijuana, BARBARA-Cocaine, MET- Methamphetamine, AMP-Amphetamines, FEN-Fentanyl, MOP-Opiates, BZO- Benzodiazepines. Noted. Mental Status Exam - Mental Status Exam Alert and Oriented to: Time, Place, Person Cognitive Function: Good Patient Appearance: Well Groomed Mood: Hopeful, Euthymic Affect: Appropriate, Normal Range Patient Behavior: Fatigued, Appropriate, Cooperative Speech Pattern: Clear, Appropriate Voice Loudness: Normal Thought Process: Intact, Goal Oriented Thought Disorder: Not Present Hallucinations: Denies Suicidal Ideation: Denies Homicidal Ideation: Denies Insight/Judgement: Poor Sleep: Poorly, Difficulty falling asleep Appetite: Good Gait/Station: Normal Psychiatric Findings - Problem List ([place] 1, 2,3) (1) Alcohol dependence with uncomplicated withdrawal Current Visit: Yes Status: Acute (2) Opioid dependence on agonist therapy Current Visit: Yes Status: Chronic (3) Cannabis dependence Current Visit: Yes Status: Chronic (4) Cocaine dependence Current Visit: Yes Status: Chronic Qualifiers: Substance use status: uncomplicated Qualified Code(s): F14.20 - Cocaine dependence, uncomplicated (5) Sedative, hypnotic or anxiolytic dependence Current Visit: Yes Status: Chronic (6) Insomnia Current Visit: Yes Status: Chronic Qualifiers: Insomnia type: unspecified Qualified Code(s): G47.00 - Insomnia, unspecified (7) Non-compliance Current Visit: Yes Status: Chronic - Initial Treatment Plan Initial Treatment Plan: Psychoeducation. Sleep hygiene. Detoxification. Support. AA/NA meetings. Trazodone 50 mg po hs. Patient is made aware of risk of priapism. Gave verbal consent to this plan of care. Observation.
[2019-05-27] MEDS: diazePAM 5 MG TABLET PO SCH ×2 (17:26→22:13)
[2019-05-27] MEDS: diazePAM 5 MG TABLET PO PRN (19:22)
[2019-05-27] MEDS: THIAMINE HCL 100 MG TABLET (FP) PO SCH (22:13)
[2019-05-27] MEDS: traZODone HCL 50 MG TABLET (FP) PO SCH (22:13)
[2019-05-28] MEDS ORDERED: METHADONE HCL 10 MG TABLET ONE (04:34)
[2019-05-28] MEDS ORDERED: METHADONE HCL 40 MG DISPERSABLE TABLET ONE (04:34)
[2019-05-28] MEDS ORDERED: LORazepam 1 MG TABLET PO SCH (05:00)
[2019-05-28] MEDS: METHADONE 40 MG, METHADONE 30 MG PO SCH (05:02)
[2019-05-28] MEDS: diazePAM 5 MG TABLET PO SCH ×3 (05:02→21:16)
[2019-05-28] MEDS ORDERED: METHADONE HCL 10 MG TABLET PO SCH (06:00)
[2019-05-28] MEDS: PRENATAL VITAMINS W/ FOLIC ACID TABLET (FP) PO SCH (10:04)
[2019-05-28] MEDS: diazePAM 5 MG TABLET PO PRN (10:06)
[2019-05-28] MEDS: NICOTINE POLACRILEX 2 MG GUM BUC PRN (10:07)
[2019-05-28] MEDS: NICOTINE POLACRILEX 4 MG GUM BUC PRN ×3 (12:24→20:15)
[2019-05-28] MEDS: METHOCARBAMOL 500 MG TABLET PO PRN (13:21)
--- NOTE | 2019-05-28 13:26 | PN ---
S CIWA - CIWA Score Nausea/Vomitin-Mild Nausea/No Vomiting Muscle Tremors: 2 Anxiety: 2 Agitation: 2 Paroxysmal Sweats: 2 Orientation: 0-Oriented Tacttile Disturbances: 0-None Auditory Disturbances: 0-None Visual Disturbances: 0-None Headache: 0-None Present CIWA-Ar Total Score: 9 S Progress Note (SOAP) Subjective: 33 years old male admitted on 05/26/19 for alcohol and benzo withdrawal sx management treating with valium detox regiment requests nicotine gum 4 mg instead of 2 mg that Mr Sung smoke a pack of cigarette daily encourage the patient to attend behavior and psychosocial therapies groups and meetings to strengthening coping mechanism Objective: 05/28/19 13:26 Vital Signs Temperature 97.7 F 05/28/19 13:08 Pulse Rate 73 05/28/19 13:08 Respiratory Rate 18 05/28/19 13:08 Blood Pressure 108/58 L 05/28/19 13:08 O2 Sat by Pulse Oximetry (%) Laboratory Last Values WBC 7.1 K/mm3 (4.0-10.0) 05/27/19 07:30 RBC 4.11 M/mm3 (4.00-5.60) 05/27/19 07:30 Hgb 12.4 GM/dL (11.7-16.9) 05/27/19 07:30 Hct 37.9 % (35.4-49) 05/27/19 07:30 MCV 92.1 fl (80-96) 05/27/19 07:30 MCH 30.2 pg (25.7-33.7) 05/27/19 07:30 MCHC 32.8 g/dl (32.0-35.9) 05/27/19 07:30 RDW 13.8 % (11.9-15.9) 05/27/19 07:30 Plt Count 233 K/MM3 (134-434) 05/27/19 07:30 MPV 10.4 fl (7.5-11.1) 05/27/19 07:30 Sodium 140 mmol/L (136-145) 05/27/19 07:30 Potassium 4.1 mmol/L (3.5-5.1) 05/27/19 07:30 Chloride 106 mmol/L (98-107) 05/27/19 07:30 Carbon Dioxide 29 mmol/L (21-32) 05/27/19 07:30 Anion Gap 5 MMOL/L (8-16) L 05/27/19 07:30 BUN 13.3 mg/dL (7-18) 05/27/19 07:30 Creatinine 1.0 mg/dL (0.55-1.3) 05/27/19 07:30 Est GFR (CKD-EPI)AfAm 114.91 05/27/19 07:30 Est GFR (CKD-EPI)NonAf 99.15 05/27/19 07:30 Random Glucose 104 mg/dL (74-106) 05/27/19 07:30 Calcium 9.0 mg/dL (8.5-10.1) 05/27/19 07:30 Total Bilirubin 0.3 mg/dL (0.2-1) 05/27/19 07:30 AST 38 U/L (15-37) H 05/27/19 07:30 ALT 72 U/L (13-61) H 05/27/19 07:30 Alkaline Phosphatase 60 U/L (45-117) 05/27/19 07:30 Total Protein 6.4 g/dl (6.4-8.2) 05/27/19 07:30 Albumin 3.2 g/dl (3.4-5.0) L 05/27/19 07:30 RPR Titer Nonreactive (NONREACTIVE) 05/27/19 07:30 lab noted Assessment: 05/28/19 13:27 alcohol and benzo withdrawal Plan: valium regiment
[2019-05-28] MEDS: traZODone HCL 50 MG TABLET (FP) PO SCH (21:15)
[2019-05-28] MEDS: THIAMINE HCL 100 MG TABLET (FP) PO SCH (21:15)
[2019-05-28] MEDS: MELATONIN 5 MG TABLETS PO PRN (21:16)
[2019-05-29] MEDS ORDERED: LORazepam 0.5 MG TABLET PO PRN
[2019-05-29] MEDS ORDERED: METHADONE HCL 10 MG TABLET ONE (04:45)
[2019-05-29] MEDS ORDERED: METHADONE HCL 40 MG DISPERSABLE TABLET ONE (04:45)
[2019-05-29] MEDS ORDERED: diazePAM 5 MG TABLET PO PRN (05:00)
[2019-05-29] MEDS ORDERED: LORazepam 0.5 MG TABLET PO SCH (05:00)
[2019-05-29] MEDS: diazePAM 5 MG TABLET PO SCH ×2 (05:16→18:10)
[2019-05-29] MEDS: METHADONE 40 MG, METHADONE 30 MG PO SCH (05:16)
[2019-05-29] MEDS: NICOTINE POLACRILEX 4 MG GUM BUC PRN ×3 (05:18→14:46)
[2019-05-29] MEDS ORDERED: ONDANSETRON *ODT* 4 MG TABLET SL ONE (09:23)
[2019-05-29] MEDS: PRENATAL VITAMINS W/ FOLIC ACID TABLET (FP) PO SCH (10:10)
[2019-05-29] MEDS: METHOCARBAMOL 500 MG TABLET PO PRN ×2 (10:12→18:15)
--- NOTE | 2019-05-29 10:53 | PN ---
S CIWA - CIWA Score Nausea/Vomitin Muscle Tremors: 1-None Visible, but [place] Anxiety: 2 Agitation: 0-Normal Activity Paroxysmal Sweats: 1-Minimal Palms Moist Orientation: 0-Oriented Tacttile Disturbances: 0-None Auditory Disturbances: 0-None Visual Disturbances: 0-None Headache: 0-None Present CIWA-Ar Total Score: 6 BHS Progress Note (SOAP) Subjective: 33 years old male admitted on 05/26/19 for alcohol and benzo withdrawal sx management treating with valium detox regiment reports feeling nausea after breakfast zofran 8mg sl x 1 now Objective: 05/29/19 10:52 Vital Signs Temperature 97.4 F L 05/29/19 08:30 Pulse Rate 59 L 05/29/19 10:11 Respiratory Rate 18 05/29/19 10:11 Blood Pressure 106/64 05/29/19 10:11 O2 Sat by Pulse Oximetry (%) Laboratory Last Values WBC 7.1 K/mm3 (4.0-10.0) 05/27/19 07:30 RBC 4.11 M/mm3 (4.00-5.60) 05/27/19 07:30 Hgb 12.4 GM/dL (11.7-16.9) 05/27/19 07:30 Hct 37.9 % (35.4-49) 05/27/19 07:30 MCV 92.1 fl (80-96) 05/27/19 07:30 MCH 30.2 pg (25.7-33.7) 05/27/19 07:30 MCHC 32.8 g/dl (32.0-35.9) 05/27/19 07:30 RDW 13.8 % (11.9-15.9) 05/27/19 07:30 Plt Count 233 K/MM3 (134-434) 05/27/19 07:30 MPV 10.4 fl (7.5-11.1) 05/27/19 07:30 Sodium 140 mmol/L (136-145) 05/27/19 07:30 Potassium 4.1 mmol/L (3.5-5.1) 05/27/19 07:30 Chloride 106 mmol/L (98-107) 05/27/19 07:30 Carbon Dioxide 29 mmol/L (21-32) 05/27/19 07:30 Anion Gap 5 MMOL/L (8-16) L 05/27/19 07:30 BUN 13.3 mg/dL (7-18) 05/27/19 07:30 Creatinine 1.0 mg/dL (0.55-1.3) 05/27/19 07:30 Est GFR (CKD-EPI)AfAm 114.91 05/27/19 07:30 Est GFR (CKD-EPI)NonAf 99.15 05/27/19 07:30 Random Glucose 104 mg/dL (74-106) 05/27/19 07:30 Calcium 9.0 mg/dL (8.5-10.1) 05/27/19 07:30 Total Bilirubin 0.3 mg/dL (0.2-1) 05/27/19 07:30 AST 38 U/L (15-37) H 05/27/19 07:30 ALT 72 U/L (13-61) H 05/27/19 07:30 Alkaline Phosphatase 60 U/L (45-117) 05/27/19 07:30 Total Protein 6.4 g/dl (6.4-8.2) 05/27/19 07:30 Albumin 3.2 g/dl (3.4-5.0) L 05/27/19 07:30 RPR Titer Nonreactive (NONREACTIVE) 05/27/19 07:30 lab noted Assessment: 05/29/19 10:52 alcohol and benzo withdrawal Plan: valium regiment
[2019-05-29] MEDS: hydrOXYzine PAMOATE 25 MG CAPSULE (FP) PO PRN ×2 (14:29→22:26)
[2019-05-29] MEDS: traZODone HCL 50 MG TABLET (FP) PO SCH (22:21)
[2019-05-29] MEDS: MELATONIN 5 MG TABLETS PO PRN (22:21)
[2019-05-29] MEDS: THIAMINE HCL 100 MG TABLET (FP) PO SCH (22:21)
[2019-05-30] MEDS ORDERED: METHADONE HCL 10 MG TABLET ONE (04:27)
[2019-05-30] MEDS ORDERED: METHADONE HCL 40 MG DISPERSABLE TABLET ONE (04:27)
[2019-05-30] MEDS ORDERED: diazePAM 5 MG TABLET PO ONE (05:00)
[2019-05-30] MEDS ORDERED: LORazepam 0.5 MG TABLET PO ONE (05:00)
[2019-05-30] MEDS: METHADONE 40 MG, METHADONE 30 MG PO SCH (05:24)
[2019-05-30 09:25] VITALS: BP 95/59; PULSE 59; TEMP 97.8
[2019-05-30] MEDS: PRENATAL VITAMINS W/ FOLIC ACID TABLET (FP) PO SCH (09:32)
--- NOTE | 2019-05-30 13:08 | DS ---
[facility] Detox Discharge Summary Admission Date: 05/26/19 Discharge Date: 05/30/19 - History Present History: Alcohol Dependence, Sedative Dependence Additional Comments: 33 years old male admitted on 05/26/19 for alcohol and benzo withdrawal sx management treated with valium detox regiment patient has completed valium regiment and tolerated well seen by psychiatrist resume trazadone alert oriented x 3 respiratory clear lungs bilaterally on auscultation extremities full range of motion skin warm and dry Pertinent Past History: time for discharge: 28 minutes - Physical Exam Results Vital Signs: Vital Signs Temperature 97.8 F 05/30/19 08:35 Pulse Rate 59 L 05/30/19 08:35 Respiratory Rate 16 05/30/19 08:35 Blood Pressure 95/59 L 05/30/19 08:35 O2 Sat by Pulse Oximetry (%) Pertinent Admission Physical Exam Findings: alcohol and benzo withdrawal Laboratory Last Values WBC 7.1 K/mm3 (4.0-10.0) 05/27/19 07:30 RBC 4.11 M/mm3 (4.00-5.60) 05/27/19 07:30 Hgb 12.4 GM/dL (11.7-16.9) 05/27/19 07:30 Hct 37.9 % (35.4-49) 05/27/19 07:30 MCV 92.1 fl (80-96) 05/27/19 07:30 MCH 30.2 pg (25.7-33.7) 05/27/19 07:30 MCHC 32.8 g/dl (32.0-35.9) 05/27/19 07:30 RDW 13.8 % (11.9-15.9) 05/27/19 07:30 Plt Count 233 K/MM3 (134-434) 05/27/19 07:30 MPV 10.4 fl (7.5-11.1) 05/27/19 07:30 Sodium 140 mmol/L (136-145) 05/27/19 07:30 Potassium 4.1 mmol/L (3.5-5.1) 05/27/19 07:30 Chloride 106 mmol/L (98-107) 05/27/19 07:30 Carbon Dioxide 29 mmol/L (21-32) 05/27/19 07:30 Anion Gap 5 MMOL/L (8-16) L 05/27/19 07:30 BUN 13.3 mg/dL (7-18) 05/27/19 07:30 Creatinine 1.0 mg/dL (0.55-1.3) 05/27/19 07:30 Est GFR (CKD-EPI)AfAm 114.91 05/27/19 07:30 Est GFR (CKD-EPI)NonAf 99.15 05/27/19 07:30 Random Glucose 104 mg/dL (74-106) 05/27/19 07:30 Calcium 9.0 mg/dL (8.5-10.1) 05/27/19 07:30 Total Bilirubin 0.3 mg/dL (0.2-1) 05/27/19 07:30 AST 38 U/L (15-37) H 05/27/19 07:30 ALT 72 U/L (13-61) H 05/27/19 07:30 Alkaline Phosphatase 60 U/L (45-117) 05/27/19 07:30 Total Protein 6.4 g/dl (6.4-8.2) 05/27/19 07:30 Albumin 3.2 g/dl (3.4-5.0) L 05/27/19 07:30 RPR Titer Nonreactive (NONREACTIVE) 05/27/19 07:30 lab noted - Treatment Hospital Course: Detox Protocol Followed, Detoxed Safely, Responded well, Discharged Condition Good, Rehab Referral Accepted Patient has Accepted a Rehab Referral to: [facility] - Medication Discharge Medications: Ambulatory Orders Methadone [Dolophine -] 70 mg PO DAILY 07/25/18 Trazodone HCl 50 mg PO HS 07/25/18 Gabapentin [Neurontin -] 300 mg PO TID 08/18/18 - Diagnosis (1) Alcohol dependence with uncomplicated withdrawal Status: Acute (2) Sedative, hypnotic or anxiolytic dependence, uncomplicated Status: Acute (3) Hepatitis C Status: Chronic Qualifiers: Viral hepatitis chronicity: chronic Hepatic coma status: without hepatic coma Qualified Code(s): B18.2 - Chronic viral hepatitis C (4) Methadone maintenance therapy patient Status: Chronic (5) Nicotine dependence Status: Acute Qualifiers: Nicotine product type: cigarettes Substance use status: in withdrawal Qualified Code(s): F17.213 - Nicotine dependence, cigarettes, with withdrawal - AMA Did Patient Leave Against Medical Advice: No CIWA Score - CIWA Score Nausea/Vomitin-Mild Nausea/No Vomiting Muscle Tremors: 1-None Visible, but [place] Anxiety: 1-Mildly Anxious Agitation: 0-Normal Activity Paroxysmal Sweats: No Perspiration Orientation: 0-Oriented Tacttile Disturbances: 0-None Auditory Disturbances: 0-None Visual Disturbances: 0-None Headache: 0-None Present CIWA-Ar Total Score: 3
== END 2019-05-30 09:33 | disposition home or self-care (01) | DRG 773 ==
LOC: YASAS 14:45 → Y3N 18:06
PROVIDERS: ADMIT Allergy & Immunology; ATTEND Allergy & Immunology
PROC: HZ2ZZZZ Detoxification Services for Substance Abuse Treatment (ICD-10-PCS; principal; 2019-05-26)
DX: F10.230 Alcohol dependence with withdrawal, uncomplicated (principal); F11.20 Opioid dependence, uncomplicated; F13.20 Sedative, hypnotic or anxiolytic dependence, uncomplicated; F14.20 Cocaine dependence, uncomplicated; F12.20 Cannabis dependence, uncomplicated; F17.213 Nicotine dependence, cigarettes, with withdrawal; B18.2 Chronic viral hepatitis C; G47.00 Insomnia, unspecified; Z91.19 Patient's noncompliance with other medical treatment and regimen
CPT/HCPCS: 36415; 80053; 85027; 86593

== ENCOUNTER 2019-10-18 14:02 | Inpatient (IN) | payer OTHER ==
--- NOTE | 2019-10-18 15:12 | BHS.RME ---
Substance Use & Tx History - Substance Use History Alcohol Substance amount: one pint Vodka daily, 6 pack x 24 ounce 2-3 x per week Frequency of use: Daily Substance route: Oral Date of Last Use: 10/18/19 Fentanyl Substance amount: 10 bags Frequency of use: Daily Substance route: Injection (ex: intravenous or skin popping) Date of Last Use: 10/18/19 Cocaine-Crack Substance amount: .5 gram Frequency of use: Daily Substance route: Injection (ex: intravenous or skin popping) Date of Last Use: 10/17/19 Xanax Substance amount: 5-10 mg Frequency of use: Daily Substance route: Oral Date of Last Use: 10/17/19 Cannabis Substance amount: one gram Frequency of use: Daily Substance route: Smoking Date of Last Use: 10/17/19 Nicotine Substance amount: 5-10 cigs Frequency of use: Daily Substance route: Smoking Date of Last Use: 10/18/19 - Last Treatment Date of last treatment: 07/09 - Treatment type: Substance Use Disorder (HUNG) (07/09 to 07/12/19) Where was last treatment: Detox Physical/Psych/Mental Status - Behavior General Behavior: Increased activity (restlessness, agitation) Eye Contact: Normal - Cooperativeness Cooperativeness: Cooperative - Thinking Thought Processes: Tight Thought content: Future oriented - Physical Health Problems Is patient presently having any pain?: No Does patient presently have any injuries (include location): Yes (right arm laceration earlier today) Does patient currently have a fever: No COWS - Scale Resting Pulse: 0= [place] 80 or Below Sweatin= Chills/Flushing Restless Observation: 1= Difficult to Sit Still Pupil Size: 0= Normal to Room Light Bone or Joint Aches: 1= Mild Discomfort Runny Nose/ Eye Tearin= None GI Upset > 30mins: 0= None Tremor Observation: 2= Slight Tremor Visible Yawning Observation: 1= 1-2x During Session Anxiety or Irritability: 1=Feels Anxious/Irritable Goose Flesh Skin: 0=Smooth Skin COWS Score: 7 CIWA Nausea/Vomitin-No Nausea/No Vomiting Muscle Tremors: 3 Anxiety: 1-Mildly Anxious Agitation: 0-Normal Activity Paroxysmal Sweats: 1-Minimal Palms Moist Orientation: 1-Uncertain about Date Tacttile Disturbances: 0-None Auditory Disturbances: 0-None Visual Disturbances: 0-None Headache: 0-None Present CIWA-Ar Total Score: 6
[2019-10-18 17:28] VITALS: BMI 23.6
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
[2019-10-18] MEDS ORDERED: MAGNESIUM CITRATE 300 ML BOTTLE PO PRN (18:46)
[2019-10-18] MEDS ORDERED: ONDANSETRON *ODT* 4 MG TABLET SL ONE (18:46)
[2019-10-18] MEDS ORDERED: BISMUTH SUBSALICYLATE 524 MG/30 ML UD PO PRN (18:46)
[2019-10-18] MEDS ORDERED: MAGNESIUM HYDROX 2400MG/30ML ORAL SUSPENSION 30 ML CUP PO PRN (18:46)
[2019-10-18] MEDS ORDERED: MENTHOL/PHENOL 1 EACH UD MM PRN (18:46)
[2019-10-18] MEDS ORDERED: MAG HYDROX/AL HYDROX/SIMETH 30 ML UNIT-DOSE CUP PO PRN (18:46)
[2019-10-18] MEDS ORDERED: METHOCARBAMOL 500 MG TABLET PO PRN (18:46)
[2019-10-18] MEDS ORDERED: ACETAMINOPHEN 325 MG TABLET (FP) PO PRN ×2 (18:46)
[2019-10-18] MEDS: hydrOXYzine PAMOATE 25 MG CAPSULE (FP) PO PRN (19:37)
[2019-10-18] MEDS: IBUPROFEN 400 MG TABLET (FP) PO PRN (19:37)
[2019-10-18] MEDS ORDERED: TUBERCULIN PPD 5 TU/0.1ML VIAL ID ONE (19:45)
[2019-10-18] MEDS: diazePAM 5 MG TABLET PO SCH (23:09)
[2019-10-18] MEDS: MELATONIN 5 MG TABLETS PO SCH (23:09)
[2019-10-18] MEDS: THIAMINE HCL 100 MG TABLET (FP) PO SCH (23:09)
[2019-10-19] MEDS: diazePAM 5 MG TABLET PO SCH ×3 (06:16→22:08)
[2019-10-19] MEDS: hydrOXYzine PAMOATE 25 MG CAPSULE (FP) PO PRN ×2 (06:17→13:35)
[2019-10-19] MEDS: NICOTINE POLACRILEX 4 MG GUM BUC PRN ×5 (06:18→22:09)
[2019-10-19 09:38] LABS: HEMATOCRIT 38.2 % (35.4-49); HEMOGLOBIN 12.6 GM/dL (11.7-16.9); MCH 29.5 pg (25.7-33.7); MEAN CELL VOLUME 89.4 fl (80-96); MEAN PLT VOLUME 9.9 fl (7.5-11.1); PLATELET COUNT 245 K/MM3 (134-434); RBC 4.27 M/mm3 (4.00-5.60); RDW 14.5 % (11.9-15.9); WHITE BLOOD COUNT 6.6 K/mm3 (4.0-10.0)
[2019-10-19 09:51] LABS: ALBUMIN 3.2 g/dl (3.4-5.0); BILIRUBIN,TOTAL 0.4 mg/dL (0.2-1); BLOOD UREA NITROGEN 18.8 mg/dL (7-18); CALCIUM 8.6 mg/dL (8.5-10.1); POTASSIUM 4.5 mmol/L (3.5-5.1); TOT PROT 6.4 g/dl (6.4-8.2)
[2019-10-19] MEDS: diazePAM 5 MG TABLET PO PRN ×2 (10:18→18:03)
[2019-10-19] MEDS: PRENATAL VITAMINS W/ FOLIC ACID TABLET (FP) PO SCH (10:18)
[2019-10-19] MEDS: NICOTINE 21 MG/24 HOURS TOPICAL PATCH TD SCH (10:18)
--- NOTE | 2019-10-19 12:45 | CONSULT ---
[facility] Psychiatric Consult - Data Date of interview: 10/19/19 Admission source: [facility] Identifying data: Patient is a 34 year old single male, without children, domiciled, and "working on and off." This is one multiple admissions for patient. Patient admitted to detox for alcohol, marijuana, cocaine, and benzodiazepine dependence. Substance Abuse History: Smoking Cessation. Smoking history: Current every day smoker. Have you smoked in the past 12 months: Yes. Aproximately how many cigarettes per day: 5. Cigars Per Day: 0. Hx Chewing Tobacco Use: No. Initiated information on smoking cessation: Yes. 'Breaking Loose' booklet given: 10/18/19. - Substance & Tx. History. Hx Alcohol Use: Yes. Hx Substance Use: Yes. Substance Use Type: Alcohol, Heroin, Opiates. Hx Substance Use Treatment: Yes ([facility]). - Substances abused. Alcohol. Substance route: Oral. Frequency: Daily. Amount used: liquor- 1 pt, beer- 1 six. Age of first use: 15. Date of last use: 10/18/19. Alprazolam (Xanax). Substance route: Oral. Frequency: Daily. Amount used: 20mg. Age of first use: 16. Date of last use: 10/17/19. Other. Other (specify): fentanyl. Substance route: Injection. Frequency: Daily. Amount used: 10 bags. Age of first use: 19. Date of last use: 10/18/19 Medical History: Noted history of surgery for deviated nasal septum (2000), antecedent of withdrawal-related seizures and orthosurgery (bone graft of left hip to right wrist). Psychiatric History: Patient's first psychiatric hospitalization was in 2010 at [facility] for drug induced psychosis (treated with risperdal) but was rediagnosed with MDD and anxiety disorder once the psychosis cleared. Patient was recently discharged from [place] psychiatric unit two weeks ago after he was admitted for depression. Mr. Sung reports treatment with an antidepressant and Buspar (unknown dose). He reports medication noncompliance since discharge. Patient has received psychiatric care when admitted to various detox/rehab facilites ( [facility]). Past treatment with gabapentin and trazodone. Patient is not currently provided with outpatient psychiatric care. At present patient presents as fatigue and is experiencing difficulty sleeping. Physical/Sexual Abuse/Trauma History: denies. Mental Status Exam - Mental Status Exam Alert and Oriented to: Time, Place, Person Cognitive Function: Good Patient Appearance: Unkempt Mood: Withdrawn Affect: Mood Congruent Patient Behavior: Fatigued Speech Pattern: Delayed (due to lethargic presentation.) Voice Loudness: Mildly Soft/Quiet Thought Process: Goal Oriented Thought Disorder: Not Present Hallucinations: Denies Suicidal Ideation: Denies Homicidal Ideation: Denies Insight/Judgement: Poor Sleep: Poorly Appetite: Fair Muscle strength/Tone: Normal Gait/Station: Other (Did not observe gait.) Psychiatric Findings - Problem List ([place] 1, 2,3) (1) Substance induced mood disorder Current Visit: Yes Status: Acute (2) Alcohol dependence with uncomplicated withdrawal Current Visit: Yes Status: Acute (3) Opioid dependence with withdrawal Current Visit: Yes Status: Acute (4) Sedative, hypnotic or anxiolytic dependence, uncomplicated Current Visit: Yes Status: Acute (5) Cannabis dependence Current Visit: Yes Status: Chronic (6) Cocaine dependence Current Visit: Yes Status: Chronic Qualifiers: Substance use status: uncomplicated Qualified Code(s): F14.20 - Cocaine dependence, uncomplicated (7) Substance-induced sleep disorder Current Visit: Yes Status: Acute - Initial Treatment Plan Initial Treatment Plan: Psychoeducation provided. Detoxification in progress. Will order Trazodone 50nmg (patient's request) + buspar 10mg BID. Benefits and side effects discussed. Verbal consent given.
--- NOTE | 2019-10-19 13:59 | EKG ---
Test Reason : Blood Pressure : / mmHG Vent. Rate : 052 BPM Atrial Rate : 052 BPM P-R Int : 150 ms QRS Dur : 094 ms QT Int : 460 ms P-R-T Axes : 069 067 059 degrees QTc Int : 427 ms SINUS BRADYCARDIA INCREASED R/S RATIO IN V1, CONSIDER EARLY TRANSITION OR POSTERIOR INFARCT ABNORMAL ECG WHEN COMPARED WITH ECG OF 07-JAN-2018 22:05, NO SIGNIFICANT CHANGE WAS FOUND Confirmed by MD SERA, BETH ([id number]) on 10/19/2019 1:58:51 PM Referred By: Confirmed By:BETH ZAMORA MD
[2019-10-19] MEDS ORDERED: METHADONE HCL 10 MG TABLET PO ONE ×2 (14:26)
--- NOTE | 2019-10-19 14:39 | PN ---
S CIWA - CIWA Score Nausea/Vomitin-No Nausea/No Vomiting Muscle Tremors: None Anxiety: 5 Agitation: 3 Paroxysmal Sweats: 2 Orientation: 0-Oriented Tacttile Disturbances: 2-Mild Itch/Numbness/Burn Auditory Disturbances: 0-None Visual Disturbances: 1-Very Mild Sensitivity Headache: 0-None Present CIWA-Ar Total Score: 13 S Progress Note (SOAP) Subjective: Body Aches, Anxious, Restless, Sweating. Objective: Patient A & O X 3, Observed Ambulating on Detox Unit Unassisted. In No Acute Distress. 10/19/19 14:37 Vital Signs Temperature 98.7 F 10/19/19 13:35 Pulse Rate 67 10/19/19 13:35 Respiratory Rate 18 10/19/19 13:35 Blood Pressure 123/73 10/19/19 13:35 O2 Sat by Pulse Oximetry (%) 98 10/19/19 13:35 Laboratory Tests 10/19/19 10/19/19 10/19/19 07:25 07:25 07:25 WBC 6.6 RBC 4.27 Hgb 12.6 Hct 38.2 MCV 89.4 MCH 29.5 MCHC 33.0 RDW 14.5 Plt Count 245 D MPV 9.9 Sodium 140 Potassium 4.5 Chloride 106 Carbon Dioxide 29 Anion Gap 5 L BUN 18.8 H Creatinine 1.0 Est GFR (CKD-EPI)AfAm 114.11 Est GFR (CKD-EPI)NonAf 98.45 Random Glucose 96 Calcium 8.6 Total Bilirubin 0.4 AST 18 ALT 36 Alkaline Phosphatase 72 Total Protein 6.4 Albumin 3.2 L Syphilis Serology Non-reactive LABS NOTED. Assessment: 10/19/19 14:38 WITHDRAWAL SYMPTOMS. Plan: Continue Detox. Increase Daily Oral Water Intake.
[2019-10-19] MEDS ORDERED: METHADONE PO ONE (15:00)
[2019-10-19] MEDS ORDERED: METHADONE 40 MG, METHADONE 10 MG PO ONE ×2 (15:00)
[2019-10-19] MEDS ORDERED: METHADONE HCL 10 MG TABLET ONE (15:00)
[2019-10-19] MEDS ORDERED: METHADONE HCL 40 MG DISPERSABLE TABLET ONE (15:01)
[2019-10-19] MEDS: BACITRACIN/POLYMYXIN B SULFATE 15 GM TUBE TP SCH ×2 (15:25→22:16)
[2019-10-19] MEDS: IBUPROFEN 400 MG TABLET (FP) PO PRN (18:04)
[2019-10-19] MEDS: THIAMINE HCL 100 MG TABLET (FP) PO SCH (22:08)
[2019-10-19] MEDS: traZODone HCL 50 MG TABLET (FP) PO SCH (22:08)
[2019-10-19] MEDS: busPIRone HCL 10 MG TABLET (FP) PO SCH (22:08)
[2019-10-19] MEDS: MELATONIN 5 MG TABLETS PO SCH (22:11)
[2019-10-20] MEDS ORDERED: METHADONE HCL 10 MG TABLET (FOR DETOX USE ONLY) ONE (04:12)
[2019-10-20] MEDS ORDERED: METHADONE HCL 40 MG DISPERSABLE TABLET ONE (04:13)
[2019-10-20] MEDS ORDERED: METHADONE HCL 5 MG TABLET PO SCH ×2 (06:00)
[2019-10-20] MEDS ORDERED: METHADONE 40 MG, METHADONE (DETOX) 20 MG PO ONE (06:00)
[2019-10-20] MEDS: diazePAM 5 MG TABLET PO SCH ×2 (06:31→17:57)
[2019-10-20] MEDS: NICOTINE POLACRILEX 4 MG GUM BUC PRN ×3 (06:32→17:58)
[2019-10-20] MEDS: NICOTINE 21 MG/24 HOURS TOPICAL PATCH TD SCH (10:26)
[2019-10-20] MEDS: PRENATAL VITAMINS W/ FOLIC ACID TABLET (FP) PO SCH (10:26)
[2019-10-20] MEDS: busPIRone HCL 10 MG TABLET (FP) PO SCH ×2 (10:26→22:11)
[2019-10-20] MEDS: BACITRACIN/POLYMYXIN B SULFATE 15 GM TUBE TP SCH ×2 (10:26→22:11)
[2019-10-20] MEDS: diazePAM 5 MG TABLET PO PRN ×2 (10:29→22:11)
--- NOTE | 2019-10-20 14:00 | PN ---
S CIWA - CIWA Score Nausea/Vomitin-Mild Nausea/No Vomiting Muscle Tremors: 2 Anxiety: 3 Agitation: 2 Paroxysmal Sweats: No Perspiration Orientation: 0-Oriented Tacttile Disturbances: 1-Very Mild Itch/Numbness Auditory Disturbances: 0-None Visual Disturbances: 0-None Headache: 0-None Present CIWA-Ar Total Score: 9 BHS Progress Note (SOAP) Subjective: 34 years old male admitted on 10/18/19 for alcohol bzo withdrawal sx management treating with valium detox regiment received methadone 60mg po today feeling better less tremor mild anxiety Objective: 10/20/19 13:59 Vital Signs - 24 hr 10/19/19 10/19/19 10/19/19 17:00 17:42 20:45 Temperature 98.4 F 98.7 F Pulse Rate 58 L 64 53 L Respiratory 16 16 Rate Blood Pressure 152/86 137/86 127/66 O2 Sat by Pulse 97 Oximetry (%) 10/19/19 10/20/19 10/20/19 22:11 00:30 03:30 Temperature Pulse Rate 60 Respiratory 16 16 Rate Blood Pressure 124/78 O2 Sat by Pulse Oximetry (%) 10/20/19 10/20/19 10/20/19 07:00 11:10 11:15 Temperature 98.4 F 97.8 F Pulse Rate 51 L 57 L Respiratory 16 18 Rate Blood Pressure 134/62 122/67 O2 Sat by Pulse 98 Oximetry (%) Laboratory Tests 10/19/19 10/19/19 10/19/19 07:25 07:25 07:25 WBC 6.6 RBC 4.27 Hgb 12.6 Hct 38.2 MCV 89.4 MCH 29.5 MCHC 33.0 RDW 14.5 Plt Count 245 D MPV 9.9 Sodium 140 Potassium 4.5 Chloride 106 Carbon Dioxide 29 Anion Gap 5 L BUN 18.8 H Creatinine 1.0 Est GFR (CKD-EPI)AfAm 114.11 Est GFR (CKD-EPI)NonAf 98.45 Random Glucose 96 Calcium 8.6 Total Bilirubin 0.4 AST 18 ALT 36 Alkaline Phosphatase 72 Total Protein 6.4 Albumin 3.2 L Syphilis Serology Non-reactive lab noted Assessment: 10/20/19 13:59 alcohol bzo withdrawal Plan: valium regiment
[2019-10-20] MEDS: traZODone HCL 50 MG TABLET (FP) PO SCH (22:10)
[2019-10-20] MEDS: THIAMINE HCL 100 MG TABLET (FP) PO SCH (22:10)
[2019-10-20] MEDS: MELATONIN 5 MG TABLETS PO SCH (22:12)
[2019-10-21] MEDS ORDERED: METHADONE HCL 10 MG TABLET (FOR DETOX USE ONLY) ONE (04:01)
[2019-10-21] MEDS ORDERED: METHADONE HCL 40 MG DISPERSABLE TABLET ONE (04:01)
[2019-10-21] MEDS ORDERED: METHADONE HCL 10 MG TABLET PO SCH ×2 (06:00)
[2019-10-21] MEDS ORDERED: diazePAM 5 MG TABLET PO ONE (06:00)
[2019-10-21] MEDS ORDERED: METHADONE 40 MG, METHADONE (DETOX) 30 MG PO SCH (06:00)
[2019-10-21] MEDS: NICOTINE POLACRILEX 4 MG GUM BUC PRN ×2 (06:22→10:10)
[2019-10-21 07:06] VITALS: BP 104/71; PULSE 63; TEMP 98
--- NOTE | 2019-10-21 09:51 | DS ---
[facility] Detox Discharge Summary Admission Date: 10/18/19 Discharge Date: 10/21/19 - History Present History: Alcohol Dependence, Cannabis Dependence, Cocaine Dependence, Opioid Dependence, Sedative Dependence Pertinent Past History: Hep C - Physical Exam Results Vital Signs: Vital Signs Temperature 98.0 F 10/21/19 07:05 Pulse Rate 63 10/21/19 07:05 Respiratory Rate 16 10/21/19 07:05 Blood Pressure 104/71 10/21/19 07:05 O2 Sat by Pulse Oximetry (%) 96 10/21/19 07:05 Alert o x 3 nad oob ambulating with steady gait cardiac:s1 s2,rrr lungs:cta,ida. abdomen:soft,+bs,nt,nd extremities:no edema,skin-right elbow laceration with 9 and 11 stitches with intact skin between. Dry with no swelling. healing with wound skin edge approximated. Pt reports was slashed on Monday night-that's 3 days ago. went to [facility] ER for medical care and stitches done) Pertinent Admission Physical Exam Findings: Laboratory Tests 10/18/19 10/19/19 10/19/19 19:15 07:25 07:25 WBC 6.6 RBC 4.27 Hgb 12.6 Hct 38.2 MCV 89.4 MCH 29.5 MCHC 33.0 RDW 14.5 Plt Count 245 D MPV 9.9 Sodium Potassium Chloride Carbon Dioxide Anion Gap BUN Creatinine Est GFR (CKD-EPI)AfAm Est GFR (CKD-EPI)NonAf Random Glucose Calcium Total Bilirubin AST ALT Alkaline Phosphatase Total Protein Albumin Syphilis Serology Non-reactive COVID-19 (ESHA) Not detected 10/19/19 07:25 WBC RBC Hgb Hct MCV MCH MCHC RDW Plt Count MPV Sodium 140 Potassium 4.5 Chloride 106 Carbon Dioxide 29 Anion Gap 5 L BUN 18.8 H Creatinine 1.0 Est GFR (CKD-EPI)AfAm 114.11 Est GFR (CKD-EPI)NonAf 98.45 Random Glucose 96 Calcium 8.6 Total Bilirubin 0.4 AST 18 ALT 36 Alkaline Phosphatase 72 Total Protein 6.4 Albumin 3.2 L Syphilis Serology COVID-19 (SEHA) Laceration Right Elbow with stitches - Treatment Hospital Course: Detox Protocol Followed, Detoxed Safely, Responded well, Discharged Condition Good, Rehab Referral Accepted Patient has Accepted a Rehab Referral to: [facility] - Medication Discharge Medications: Ambulatory Orders Methadone [Dolophine -] 70 mg PO DAILY 07/25/18 Trazodone HCl 50 mg PO HS 07/25/18 Gabapentin [Neurontin -] 300 mg PO TID 08/18/18 - Diagnosis (1) Laceration of elbow, right Current Visit: Yes Status: Acute Qualifiers: Encounter type: subsequent encounter Qualified Code(s): S51.011D - Laceration without foreign body of right elbow, subsequent encounter (2) Alcohol dependence with uncomplicated withdrawal Current Visit: Yes Status: Acute (3) Opioid dependence with withdrawal Current Visit: Yes Status: Acute (4) Sedative, hypnotic or anxiolytic dependence, uncomplicated Current Visit: Yes Status: Acute (5) Cannabis dependence Current Visit: Yes Status: Chronic (6) Cocaine dependence Current Visit: Yes Status: Acute Qualifiers: Substance use status: uncomplicated Qualified Code(s): F14.20 - Cocaine dependence, uncomplicated (7) Hepatitis C Current Visit: Yes Status: Chronic Qualifiers: Viral hepatitis chronicity: chronic Hepatic coma status: without hepatic coma Qualified Code(s): B18.2 - Chronic viral hepatitis C (8) Methadone maintenance therapy patient Current Visit: Yes Status: Chronic (9) Nicotine dependence Current Visit: Yes Status: Acute Qualifiers: Nicotine product type: cigarettes Substance use status: in withdrawal Qualified Code(s): F17.213 - Nicotine dependence, cigarettes, with withdrawal (10) IVDU (intravenous drug user) Current Visit: Yes Status: Chronic - AMA Did Patient Leave Against Medical Advice: No
[2019-10-21] MEDS: NICOTINE 21 MG/24 HOURS TOPICAL PATCH TD SCH (10:08)
[2019-10-21] MEDS: PRENATAL VITAMINS W/ FOLIC ACID TABLET (FP) PO SCH (10:09)
[2019-10-21] MEDS: busPIRone HCL 10 MG TABLET (FP) PO SCH (10:09)
[2019-10-21] MEDS: BACITRACIN/POLYMYXIN B SULFATE 15 GM TUBE TP SCH (10:09)
[2019-10-21] MEDS: diazePAM 5 MG TABLET PO PRN (10:11)
== END 2019-10-21 11:33 | disposition other institution (70) | DRG 773 ==
LOC: YASAS 14:02 → Y5N DETOX 19:08
PROVIDERS: ADMIT Allergy & Immunology; ATTEND Allergy & Immunology
PROC: HZ2ZZZZ Detoxification Services for Substance Abuse Treatment (ICD-10-PCS; principal; 2019-10-18)
DX: F11.23 Opioid dependence with withdrawal (principal); F10.230 Alcohol dependence with withdrawal, uncomplicated; F13.230 Sedative, hypnotic or anxiolytic dependence with withdrawal, uncomplicated; F14.20 Cocaine dependence, uncomplicated; F12.20 Cannabis dependence, uncomplicated; F17.213 Nicotine dependence, cigarettes, with withdrawal; F19.24 Other psychoactive substance dependence with psychoactive substance-induced mood disorder; F19.282 Other psychoactive substance dependence with psychoactive substance-induced sleep disorder; F41.9 Anxiety disorder, unspecified; B18.2 Chronic viral hepatitis C; G47.00 Insomnia, unspecified; R00.1 Bradycardia, unspecified; S41.111D Laceration without foreign body of right upper arm, subsequent encounter; Y04.0XXD Assault by unarmed brawl or fight, subsequent encounter; Z86.69 Personal history of other diseases of the nervous system and sense organs; Z56.0 Unemployment, unspecified; Z59.0 Homelessness
CPT/HCPCS: 36415; 80053; 85027; 86780; 93005; 93010; U0003

== ENCOUNTER 2019-10-21 11:24 | Inpatient (IN) | payer OTHER ==
[2019-10-21 12:18] VITALS: BP 117/77; PULSE 65; TEMP 98.2
[2019-10-21] MEDS ORDERED: MAGNESIUM HYDROX 2400MG/30ML ORAL SUSPENSION 30 ML CUP PO PRN (12:20)
[2019-10-21] MEDS ORDERED: ACETAMINOPHEN 325 MG TABLET (FP) PO PRN (12:20)
[2019-10-21] MEDS ORDERED: MAGNESIUM CITRATE 300 ML BOTTLE PO PRN (12:20)
[2019-10-21] MEDS ORDERED: guaiFENesin 200 MG/10 ML 10 ML UNIT-DOSE CUPS PO PRN (12:20)
[2019-10-21] MEDS ORDERED: MAG HYDROX/AL HYDROX/SIMETH 30 ML UNIT-DOSE CUP PO PRN (12:20)
[2019-10-21] MEDS ORDERED: NICOTINE POLACRILEX 2 MG GUM BUC PRN (12:20)
[2019-10-21] MEDS ORDERED: hydrOXYzine PAMOATE 25 MG CAPSULE (FP) PO PRN (12:20)
[2019-10-21] MEDS ORDERED: MENTHOL/PHENOL 1 EACH UD MM PRN (12:20)
[2019-10-21] MEDS ORDERED: IBUPROFEN 400 MG TABLET (FP) PO PRN (12:20)
[2019-10-21] MEDS ORDERED: P-EPHED 60MG/TRIPROLIDI 2.5MG TABLET PO PRN (12:20)
[2019-10-21] MEDS ORDERED: LOPERAMIDE HCL 2 MG CAPSULE PO PRN (12:20)
--- NOTE | 2019-10-21 12:20 | HP ---
[facility] Rehab Assess/Revision - Vital signs Vital Signs: Vital Signs Period Temp Pulse Resp BP Sys/Betts Pulse Ox Last 24 Hr 98.2 F 65 18 117/77 - Findings Detox History & Physical reviewed: Yes Concur with findings: Yes Comments/Additional Findings: Referred to Rehab after completing detox on . Inpatient Rehab Admission - Rehab Decision to Admit Inpatient rehab admission?: Yes - Initial Determination Are CD services needed?: Yes Free of communicable disease: Yes Not in need of hospitalization: Yes - Rehab Admission Criteria Previous failed treatment: Yes Poor recovery environment: Yes Comorbidities: Yes Lacks judgement: Yes Patient is meeting Inpatient Rehab admission criteria:: Yes
--- NOTE | 2019-10-21 15:07 | DS ---
[facility] Rehab Discharge Summary - [facility] Rehab Discharge Summary Admission Date: 10/21/19 Discharge Date: 10/21/19 - History Present History: Alcohol dependence, Opioid dependence - Discharge Physical Exam Vital Signs: Vital Signs Temperature 98.2 F 10/21/19 12:17 Pulse Rate 65 10/21/19 12:17 Respiratory Rate 18 10/21/19 12:17 Blood Pressure 117/77 10/21/19 12:17 O2 Sat by Pulse Oximetry (%) 96 10/21/19 14:38 PATIENT DENIES SWEATING, BODY ACHES, ANXIETY AND SI/HI. PATIENT STATES " I WANT TO LEAVE TO CHECK ON MY FATHER AND MAKE SURE HE HAS MONEY". PE ALERT AND ORIENTED X 3 SKIN WARM AND DRY IN NO ACUTE DISTRESS EXT FULL ROM, AMB AD ANNA NO TREMORS A/P: OPIOD ETOH DEPENDENCE PATIENT DID NOT ADMITTED TO REHAB TODAY AFTER COMPLETING DETOX. HE STATED " I WANT TO LEAVE AND SIGN OUT". PATIENT MEDICALLY ADVISED TO COMPLETE REHAB AND EXPLAINED RISK FACTORS OF RELAPSE AND POSSIBLE OVERDOSE WITH LEAVING TREATMENT. PATIENT REFUSED TO STAY IN REHAB AND SIGNED OUT AMA. - Medication Discharge Medications: Ambulatory Orders Methadone [Dolophine -] 70 mg PO DAILY 07/25/18 Trazodone HCl 50 mg PO HS 07/25/18 Gabapentin [Neurontin -] 300 mg PO TID 08/18/18 Buspar - 10 mg PO BID 10/21/19 - Medication-Assisted Treatment (MAT) Medication-Assisted Treatment (MAT): No MAT Follow-up Referral: SIGNED OUT AMA - Discharge Instructions Diet, activity, other medical instructions: Diet: Activity: Other medical instructions: - Follow-up Referral Minutes to complete discharge: 35 - AMA Did Patient Leave Against Medical Advice: Yes
--- NOTE | 2019-10-21 15:25 | PN ---
[facility] Progress Note Note: Psychiatry Attending's note : Called by nurse for continuation of medications orders. Mr Sung got just transferred to [address] From the detoxification unit. Needs orders for trazodone + buspirone. Patient is not found on the unit. Left program before contact with psychiatrist. See staff's notes for details.
[2019-10-21] MEDS ORDERED: MELATONIN 5 MG TABLETS PO SCH (22:00)
[2019-10-21] MEDS ORDERED: traZODone HCL 50 MG TABLET (FP) PO SCH (22:00)
[2019-10-21] MEDS ORDERED: busPIRone HCL 10 MG TABLET (FP) PO SCH (22:00)
[2019-10-21] MEDS ORDERED: THIAMINE HCL 100 MG TABLET (FP) PO SCH (22:00)
[2019-10-22] MEDS ORDERED: PRENATAL VITAMINS W/ FOLIC ACID TABLET (FP) PO SCH (10:00)
[2019-10-22] MEDS ORDERED: NICOTINE 7 MG/24 HOURS TOPICAL PATCH TD SCH (10:00)
== END 2019-10-21 14:43 | disposition left against medical advice (07) | DRG 770 ==
LOC: YASAS 11:24 → Y3E 11:27
PROVIDERS: ADMIT Allergy & Immunology; ATTEND Allergy & Immunology
PROC: HZ42ZZZ Group Counseling for Substance Abuse Treatment, Cognitive-Behavioral (ICD-10-PCS; principal; 2019-10-21)
DX: F11.20 Opioid dependence, uncomplicated (principal); F10.20 Alcohol dependence, uncomplicated; F13.20 Sedative, hypnotic or anxiolytic dependence, uncomplicated; F14.20 Cocaine dependence, uncomplicated; F12.20 Cannabis dependence, uncomplicated; F17.213 Nicotine dependence, cigarettes, with withdrawal; F41.9 Anxiety disorder, unspecified; B18.2 Chronic viral hepatitis C; G47.00 Insomnia, unspecified; S41.112D Laceration without foreign body of left upper arm, subsequent encounter; Y04.0XXD Assault by unarmed brawl or fight, subsequent encounter; R00.1 Bradycardia, unspecified; Z86.69 Personal history of other diseases of the nervous system and sense organs; Z56.0 Unemployment, unspecified; Z59.0 Homelessness

== ENCOUNTER 2019-11-13 10:51 | Inpatient (IN) | payer OTHER ==
--- NOTE | 2019-11-13 11:28 | BHS.RME ---
Substance Use & Tx History - Substance Use History Alcohol Substance amount: 3 Pints Vodka Frequency of use: Daily Substance route: Oral Date of Last Use: 11/12/19 (First drink age 14 y. NO alcohol related seizures or blackouts. Admits to an eye card lacer) Fentanyl Substance amount: one gram Frequency of use: Daily Substance route: Injection (ex: intravenous or skin popping) Date of Last Use: 11/12/19 (First use/heroin age 19 y. NO OD. Has Narcan kit at home) Xanax Substance amount: 2mg x 10 pills Frequency of use: Daily Substance route: Oral Date of Last Use: 11/12/19 (First use age 16 y) Cannabis Substance amount: one gram Frequency of use: Daily Substance route: Smoking Date of Last Use: 11/12/19 (First use age 15 y) Nicotine Substance amount: one pack Frequency of use: Daily Substance route: Smoking Date of Last Use: 11/13/19 (First use age 14 y) - Last Treatment Date of last treatment: to 10/21/19 detox, left one day after admit to rehab Treatment type: Substance Use Disorder (HUNG) Where was last treatment: Detox Physical/Psych/Mental Status - Behavior General Behavior: Increased activity (restlessness, agitation) Eye Contact: Normal - Cooperativeness Cooperativeness: Cooperative - Thinking Thought Processes: Tight Thought content: Future oriented - Physical Health Problems Is patient presently having any pain?: No Does patient presently have any injuries (include location): No Does patient currently have a fever: No COWS - Scale Resting Pulse: 0= VA 80 or Below Sweatin=Flushed/Facial Moisture Restless Observation: 1= Difficult to Sit Still Pupil Size: 0= Normal to Room Light Bone or Joint Aches: 1= Mild Discomfort Runny Nose/ Eye Tearin= Nasal Congestion GI Upset > 30mins: 2= Nausea/Diarrhea Tremor Observation: 0= None Yawning Observation: 0= None Anxiety or Irritability: 1=Feels Anxious/Irritable Goose Flesh Skin: 0=Smooth Skin COWS Score: 8 CIWA Nausea/Vomitin Muscle Tremors: 3 Anxiety: 4-Mod. Anxious/Guarded Agitation: 1-Slight > Activity Paroxysmal Sweats: 3 Orientation: 0-Oriented Tacttile Disturbances: 0-None Auditory Disturbances: 1-Very Mild Visual Disturbances: 1-Very Mild Sensitivity Headache: 5-Severe CIWA-Ar Total Score: 21
--- NOTE | 2019-11-13 12:31 | HP ---
COWS - Scale Resting Pulse: 0= [place] 80 or Below Sweatin=Flushed/Facial Moisture Restless Observation: 1= Difficult to Sit Still Pupil Size: 0= Normal to Room Light Bone or Joint Aches: 1= Mild Discomfort Runny Nose/ Eye Tearin= Nasal Congestion GI Upset > 30mins: 2= Nausea/Diarrhea Tremor Observation: 0= None Yawning Observation: 0= None Anxiety or Irritability: 1=Feels Anxious/Irritable Goose Flesh Skin: 0=Smooth Skin COWS Score: 8 CIWA Score Nausea/Vomitin Muscle Tremors: 3 Anxiety: 4-Mod. Anxious/Guarded Agitation: 1-Slight > Activity Paroxysmal Sweats: 3 Orientation: 0-Oriented Tacttile Disturbances: 0-None Auditory Disturbances: 1-Very Mild Visual Disturbances: 1-Very Mild Sensitivity Headache: 5-Severe CIWA-Ar Total Score: 21 - Admission Criteria OASAS Guidelines: Admission for Medically Managed Detox: Requires at least one of the followin. CIWA greater than 12 2. Seizures within the past 24 hours 3. Delirium tremens within the past 24 hours 4. Hallucinations within the past 24 hours 5. Acute intervention needed for co occurring medical disorder 6. Acute intervention needed for co occurring psychiatric disorder 7. Severe withdrawal that cannot be handled at a lower level of care (continued vomiting, continued diarrhea, abnormal vital signs) requiring intravenous medication and/or fluids 8. Admitting History and Physical - Admission Chief Complaint: "I need a few days away from the streets to stop using anymore." History of Present Illness: 34 year old male with history of alcohol dependence, opioid dependence, sedative dependence, cannabis use disorder, nicotine dependence. He was last here at [facility] from 10/17-10/21/19 completed detox and then rehab for only one day due to feeling too much like jail and left early. Substance Use & Tx History - Substance Use History Alcohol Substance amount: 3 Pints Vodka Frequency of use: Daily Substance route: Oral Date of Last Use: 11/12/19 (First drink age 14 y. NO alcohol related seizures or blackouts. Admits to an eye design consultant) Fentanyl Substance amount: one gram Frequency of use: Daily Substance route: Injection (ex: intravenous or skin popping) Date of Last Use: 11/12/19 (First use/heroin age 19 y. NO OD. Has Narcan kit at home) Xanax Substance amount: 2mg x 10 pills Frequency of use: Daily Substance route: Oral Date of Last Use: 11/12/19 (First use age 16 y) Cannabis Substance amount: one gram Frequency of use: Daily Substance route: Smoking Date of Last Use: 11/12/19 (First use age 15 y) Nicotine Substance amount: one pack Frequency of use: Daily Substance route: Smoking Date of Last Use: 11/13/19 (First use age 14 y) PMH: HCV+, untreated Psurg: Septum repair Psych: Anxiety, Depression Homeless and on streets, no legal issues History Source: Patient Limitations to Obtaining History: No Limitations - Past Medical History Hepatobiliary: Yes: Hepatitis C - Past Surgical History Past Surgical History: Yes: None - Smoking History Smoking history: Current every day smoker Have you smoked in the past 12 months: Yes Aproximately how many cigarettes per day: 5 - Alcohol/Substance Use Hx Alcohol Use: Yes History of Substance Use: reports: Heroin, Marijuana - Social History Usual Living Arrangement: Yes: Alone Do you think of yourself as: Straight/Heterosexual ADL: Independent 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 Allergies/Adverse Reactions: Allergies Allergy/AdvReac Type Severity Reaction Status Date / Time No Known Allergies Allergy Verified 10/18/19 17:19 Exam Limitations: No Limitations - Ebola screening Have you traveled outside of the country in the last 21 days: No Have you had contact with anyone from an Ebola affected area: No Have you been sick,other than usual withdrawal symptoms: No Do you have a fever: No - Review of Systems Constitutional: No Symptoms Reported, Chills, Diaphoresis, Unintentional Wgt. Loss EENT: reports: No Symptoms Reported Respiratory: reports: No Symptoms reported Cardiac: reports: No Symptoms Reported GI: reports: No Symptoms Reported : reports: No Symptoms Reported Musculoskeletal: reports: No Symptoms Reported Integumentary: reports: No Symptoms Reported Neuro: reports: No Symptoms reported Endocrine: reports: No Symptoms Reported Hematology: reports: No Symptoms Reported Psychiatric: reports: Judgement Intact, Mood/Affect Appropiate, Orientated x3, Agitated, Anxious, Depressed Other Systems: Reviewed and Negative Patient History - Patient Medical History Hx Anemia: No Hx Asthma: No Hx Chronic Obstructive Pulmonary Disease (COPD): No Hx Cancer: No Hx Cardiac Disorders: No Hx Congestive Heart Failure: No Hx Hypertension: No Hx Hypercholesterolemia: No Hx Pacemaker: No HX Cerebrovascular Accident: No Hx Seizures: Yes (10 years ago Xanax withdrawal) Hx Dementia: No Hx Diabetes: No Hx Gastrointestinal Disorders: No Hx Liver Disease: Yes (Hepatitis C) Hx Genitourinary Disorders: No Hx Sexually Transmitted Disorders: No Hx Renal Disease (ESRD): No Hx Thyroid Disease: No Hx Human Immunodeficiency Virus (HIV): No (NEGATIVE 2020) Hx Hepatitis C: Yes (not treated) Hx Depression: Yes Hx Suicide Attempt: No Hx Bipolar Disorder: Yes (hospitalized age 20 for PCP induced psychosis) Hx Schizophrenia: No - Patient Surgical History Past Surgical History: Yes Hx Neurologic Surgery: No Hx Cataract Extraction: No Hx Cardiac Surgery: No Hx Lung Surgery: No Hx Breast Surgery: No Hx Breast Biopsy: No Hx Abdominal Surgery: No Hx Appendectomy: No Hx Cholecystectomy: No Hx Genitourinary Surgery: No Hx Section: No Hx Orthopedic Surgery: Yes (BONE GRAFT LEFT HIP TO RIGHT SCAPHOID) Other Surgical History: SX TO SEPTUM DUE TO DIFFICULTY BREATHING IN 2000 Anesthesia Reaction: No - PPD History Previous Implant?: Yes Documented Results: Negative w/proof Implanted On Prior [facility] Admission?: Yes Date: 10/20/19 Results: 0 MM PPD to be Administered?: No - Smoking Cessation Smoking history: Current every day smoker Have you smoked in the past 12 months: Yes Aproximately how many cigarettes per day: 5 Cigars Per Day: 0 Hx Chewing Tobacco Use: No Initiated information on smoking cessation: Yes 'Breaking Loose' booklet given: 11/13/19 - Substances abused Alcohol Substance route: Oral Frequency: Daily (3) Amount used: 3 pints vodka Age of first use: 14 Date of last use: 11/12/19 Heroin Substance route: Injection Amount used: 1 gram Age of first use: 19 Date of last use: 11/12/19 Alprazolam (Xanax) Other (specify): 2 mg - 10 tabs Amount used: 10 tabs Age of first use: 16 Date of last use: 11/12/19 Admission Physical Exam BHS - Physical General Appearance: Yes: No Apparent Distress, Disheveled, Mild Distress, Moderate Distress, Tremorous, Irritable, Sweating, Anxious HEENTM: Yes: EOMI, Hearing grossly Normal, Normal ENT Inspection, Normocephalic, Normal Voice, MANUEL, Pharynx Normal, Tm's normal Respiratory: Yes: Chest Non-Tender, Lungs Clear, Normal Breath Sounds, No Respiratory Distress, No Accessory Muscle Use Neck: Yes: No masses,lesions,Nodules, Supple, Trachea in good position Breast: Yes: Within Normal Limits Cardiology: Yes: Regular Rhythm, Regular Rate, S1, S2 Abdominal: Yes: Normal Bowel Sounds, Non Tender, Flat, Soft Genitourinary: Yes: Within Normal Limits Back: Yes: Normal Inspection Musculoskeletal: Yes: full range of Motion, Gait Steady, Pelvis Stable Extremities: Yes: Normal Capillary Refill, Normal Inspection, Normal Range of Motion, Non-Tender 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: Yes: supervisor inspection room II-XII NML intact, Fully Oriented, Alert, Motor Strength 5/5, Normal Mood/Affect, Normal Response Integumentary: Yes: Normal Color, Dry, Warm Lymphatic: Yes: Within Normal Limits - Diagnostic (1) Alcohol dependence with uncomplicated withdrawal Current Visit: Yes Status: Acute (2) Cocaine dependence Current Visit: Yes Status: Acute Qualifiers: Substance use status: uncomplicated Qualified Code(s): F14.20 - Cocaine dependence, uncomplicated (3) Insomnia secondary to depression with anxiety Current Visit: Yes Status: Acute (4) Neuropathy Current Visit: Yes Status: Acute (5) Nicotine dependence Current Visit: Yes Status: Acute Qualifiers: Nicotine product type: cigarettes Substance use status: in withdrawal Qualified Code(s): F17.213 - Nicotine dependence, cigarettes, with withdrawal (6) Opioid dependence with withdrawal Current Visit: Yes Status: Acute (7) Sedative, hypnotic or anxiolytic dependence, uncomplicated Current Visit: Yes Status: Acute (8) Weight loss Current Visit: Yes Status: Acute (9) Anxiety Current Visit: Yes Status: Chronic Breathalyzer - Breathalyzer Breathalyzer: 0 Urine Drug Screen - Test Device Lot number: [id number] Expiration date: 12/22/20 - Control Is test valid?: Yes - Results Drug screen NEGATIVE: No Urine drug screen results: THC-Marijuana, BARBARA-Cocaine, MOP-Opiates, MTD- Methadone, BZO-Benzodiazepines Inpatient Rehab Admission - Rehab Decision to Admit Inpatient rehab admission?: No
[2019-11-13] MEDS ORDERED: MAG HYDROX/AL HYDROX/SIMETH 30 ML UNIT-DOSE CUP PO PRN (12:42)
[2019-11-13] MEDS ORDERED: METHOCARBAMOL 500 MG TABLET PO PRN (12:42)
[2019-11-13] MEDS ORDERED: ACETAMINOPHEN 325 MG TABLET (FP) PO PRN ×2 (12:42)
[2019-11-13] MEDS ORDERED: MAGNESIUM CITRATE 300 ML BOTTLE PO PRN (12:42)
[2019-11-13] MEDS ORDERED: BISMUTH SUBSALICYLATE 524 MG/30 ML UD PO PRN (12:42)
[2019-11-13] MEDS ORDERED: IBUPROFEN 400 MG TABLET (FP) PO PRN (12:42)
[2019-11-13] MEDS ORDERED: MENTHOL/PHENOL 1 EACH UD MM PRN (12:42)
[2019-11-13] MEDS ORDERED: ONDANSETRON *ODT* 4 MG TABLET SL ONE (12:42)
[2019-11-13] MEDS ORDERED: MAGNESIUM HYDROX 2400MG/30ML ORAL SUSPENSION 30 ML CUP PO PRN (12:42)
[2019-11-13] MEDS: NICOTINE 7 MG/24 HOURS TOPICAL PATCH TD SCH (14:48)
[2019-11-13] MEDS: hydrOXYzine PAMOATE 25 MG CAPSULE (FP) PO SCH ×3 (14:48→21:43)
[2019-11-13] MEDS: PRENATAL VITAMINS W/ FOLIC ACID TABLET (FP) PO SCH (14:48)
[2019-11-13] MEDS: diazePAM 5 MG TABLET PO SCH ×2 (14:49→21:43)
--- NOTE | 2019-11-13 16:44 | CONSULT ---
[facility] Psychiatric Consult - Data Date of interview: 11/13/19 Admission source: [facility] Identifying data: Patient is a 34 year old single male, without children, domiciled, but currently unemployed. This is one multiple admissions for patient. Patient admitted to detox for alcohol, marijuana, cocaine, and benzodiazepine dependence. Substance Abuse History: Smoking Cessation. Smoking history: Current every day smoker. Have you smoked in the past 12 months: Yes. Aproximately how many cigarettes per day: 5. Cigars Per Day: 0. Hx Chewing Tobacco Use: No. Initiated information on smoking cessation: Yes. 'Breaking Loose' booklet given: 11/13/19. - Substances abused. Alcohol. Substance route: Oral. Frequency: Daily (3). Amount used: 3 pints vodka. Age of first use: 14. Date of last use: 11/12/19. Heroin. Substance route: Injection. Amount used: 1 gram. Age of first use: 19. Date of last use: 11/12/19. Alprazolam (Xanax). Other (specify): 2 mg - 10 tabs. Amount used: 10 tabs. Age of first use: 16. Date of last use: 11/12/19 Medical History: Noted history of surgery for deviated nasal septum (2000), antecedent of withdrawal-related seizures and orthosurgery (bone graft of left hip to right wrist). Psychiatric History: Assessment conducted bedside. Patient reports no changes from previous consultation on 10/19/19. Patient's first psychiatric hospitalizati on was in [address] [facility] for drug induced psychosis (treated with risperdal) but was rediagnosed with MDD and anxiety disorder once the psychosis cleared. Patient was recently discharged from [place] psychiatric unit two weeks ago after he was admitted for depression. Mr. Sung reports treatment with an antidepressant and Buspar (unknown dose). He reports medication noncompliance since discharge. Patient has received psychiatric care when admitted to various detox/rehab facilites ( [facility]). Past treatment with gabapentin and trazodone. Patient is not currently provided with outpatient psychiatric care. During previous admission on 10/14/19 patient was treated with trazodone 50mg HS + Buspar 10mg BID. Patient requesting to resume same medications. At present patient presents as fatigue. Patient denies thoughts or urges to hurt self or others. Physical/Sexual Abuse/Trauma History: denies. Mental Status Exam - Mental Status Exam Alert and Oriented to: Time, Place, Person Cognitive Function: Good Patient Appearance: Well Groomed Mood: Withdrawn Affect: Mood Congruent Patient Behavior: Fatigued, Asleep (Needed to be awaken several times to comp lete assesssment. ) Speech Pattern: Delayed (Patient is lethargic. ) Voice Loudness: Mildly Soft/Quiet Thought Process: Goal Oriented Thought Disorder: Not Present Hallucinations: Denies Suicidal Ideation: Denies Homicidal Ideation: Denies Insight/Judgement: Poor Sleep: Poorly Appetite: Fair Muscle strength/Tone: Normal Gait/Station: Other (Not observed.) Psychiatric Findings - Problem List ([place] 1, 2,3) (1) Alcohol dependence with uncomplicated withdrawal Current Visit: Yes Status: Acute (2) Cocaine dependence Current Visit: Yes Status: Acute Qualifiers: Substance use status: uncomplicated Qualified Code(s): F14.20 - Cocaine dependence, uncomplicated (3) Nicotine dependence Current Visit: Yes Status: Acute Qualifiers: Nicotine product type: cigarettes Substance use status: in withdrawal Qualified Code(s): F17.213 - Nicotine dependence, cigarettes, with withdrawal (4) Opioid dependence with withdrawal Current Visit: Yes Status: Acute (5) Sedative, hypnotic or anxiolytic dependence, uncomplicated Current Visit: Yes Status: Acute (6) Substance induced mood disorder Current Visit: Yes Status: Acute (7) Substance-induced sleep disorder Current Visit: Yes Status: Acute (8) Substance-induced anxiety disorder Current Visit: Yes Status: Acute - Initial Treatment Plan Initial Treatment Plan: Psychoeducation provided. Detoxification in progress. Will order Trazodone 50mg HS + Buspar 10mg BID. Benefits and side effects discussed. Verbal consent given.
[2019-11-13 16:53] LABS: HEMATOCRIT 35.7 % (35.4-49); HEMOGLOBIN 11.7 GM/dL (11.7-16.9); MCH 29.8 pg (25.7-33.7); MCHC 32.8 g/dl (32.0-35.9); MEAN CELL VOLUME 90.9 fl (80-96); MEAN PLT VOLUME 9.2 fl (7.5-11.1); RBC 3.92 M/mm3 (4.00-5.60); WHITE BLOOD COUNT 3.3 K/mm3 (4.0-10.0)
[2019-11-13 17:02] LABS: ALBUMIN 3.6 g/dl (3.4-5.0); BILIRUBIN,TOTAL 0.4 mg/dL (0.2-1); BLOOD UREA NITROGEN 12.7 mg/dL (7-18); CALCIUM 9.2 mg/dL (8.5-10.1); CREATININE 1.1 mg/dL (0.55-1.3); TOT PROT 7.4 g/dl (6.4-8.2)
[2019-11-13 18:00] LABS: PLATELET COUNT 4 K/MM3 (134-434)
--- NOTE | 2019-11-13 18:43 | PN ---
[facility] Progress Note Note: Lab reports platelet count of 4K/mm3 (L). Patient was seen and examined in room. He is asymptomatic and there are no bruises or bleeding noted on examination. Patient denies gum bleeding, nose bleeding, blood in the urine or stool and reports fatigue. He has medical history of Hep. C. Vital Signs Temperature 98.4 F 11/13/19 18:10 Pulse Rate 60 11/13/19 18:10 Respiratory Rate 18 11/13/19 18:10 Blood Pressure 125/75 11/13/19 18:10 O2 Sat by Pulse Oximetry (%) 99 11/13/19 14:55 Laboratory Last Values WBC 3.3 K/mm3 (4.0-10.0) L 11/13/19 12:40 RBC 3.92 M/mm3 (4.00-5.60) L 11/13/19 12:40 Hgb 11.7 GM/dL (11.7-16.9) 11/13/19 12:40 Hct 35.7 % (35.4-49) 11/13/19 12:40 MCV 90.9 fl (80-96) 11/13/19 12:40 MCH 29.8 pg (25.7-33.7) 11/13/19 12:40 MCHC 32.8 g/dl (32.0-35.9) 11/13/19 12:40 RDW 14.0 % (11.9-15.9) 11/13/19 12:40 Plt Count 4 K/MM3 (134-434) L* D 11/13/19 12:40 MPV 9.2 fl (7.5-11.1) 11/13/19 12:40 Sodium 138 mmol/L (136-145) 11/13/19 12:40 Potassium 4.0 mmol/L (3.5-5.1) 11/13/19 12:40 Chloride 104 mmol/L (98-107) 11/13/19 12:40 Carbon Dioxide 30 mmol/L (21-32) 11/13/19 12:40 Anion Gap 4 MMOL/L (8-16) L 11/13/19 12:40 BUN 12.7 mg/dL (7-18) 11/13/19 12:40 Creatinine 1.1 mg/dL (0.55-1.3) 11/13/19 12:40 Est GFR (CKD-EPI)AfAm 101.69 11/13/19 12:40 Est GFR (CKD-EPI)NonAf 87.74 11/13/19 12:40 Random Glucose 89 mg/dL (74-106) 11/13/19 12:40 Calcium 9.2 mg/dL (8.5-10.1) 11/13/19 12:40 Total Bilirubin 0.4 mg/dL (0.2-1) 11/13/19 12:40 AST 23 U/L (15-37) 11/13/19 12:40 ALT 43 U/L (13-61) 11/13/19 12:40 Alkaline Phosphatase 76 U/L (45-117) 11/13/19 12:40 Total Protein 7.4 g/dl (6.4-8.2) 11/13/19 12:40 Albumin 3.6 g/dl (3.4-5.0) 11/13/19 12:40 Syphilis Serology Non-reactive (NONREACTIVE) 11/13/19 12:40 Action: Will endorse to the floor provider to follow up with a resident consult. Continue to monitor patient for bruises and bleeding Ibuprofen 400mg tablet oral Q6H prn discontinued Maintain bleeding precaution
[2019-11-13] MEDS: THIAMINE HCL 100 MG TABLET (FP) PO SCH (21:43)
[2019-11-13] MEDS: MELATONIN 5 MG TABLETS PO SCH (21:43)
[2019-11-13] MEDS: busPIRone HCL 10 MG TABLET (FP) PO SCH (21:43)
[2019-11-13] MEDS ORDERED: traZODone HCL 50 MG TABLET (FP) PO SCH (22:00)
[2019-11-14] MEDS: diazePAM 5 MG TABLET PO PRN ×2 (02:19→17:56)
[2019-11-14] MEDS ORDERED: METHADONE HCL 10 MG TABLET PO SCH (06:00)
[2019-11-14] MEDS: METHADONE 40 MG, METHADONE 10 MG PO SCH (06:21)
[2019-11-14] MEDS: diazePAM 5 MG TABLET PO SCH ×3 (06:21→22:24)
[2019-11-14] MEDS ORDERED: METHADONE HCL 40 MG DISPERSABLE TABLET ONE (06:21)
[2019-11-14] MEDS: hydrOXYzine PAMOATE 25 MG CAPSULE (FP) PO SCH ×5 (06:21→22:24)
[2019-11-14] MEDS ORDERED: METHADONE HCL 10 MG TABLET ONE ×2 (06:21→20:43)
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
[2019-11-14] MEDS ORDERED: TRIMETHOBENZAMIDE HCL 200MG/2ML INJ IM PRN (09:21)
[2019-11-14] MEDS: busPIRone HCL 10 MG TABLET (FP) PO SCH ×2 (10:24→22:25)
[2019-11-14] MEDS: PRENATAL VITAMINS W/ FOLIC ACID TABLET (FP) PO SCH (10:25)
[2019-11-14] MEDS: NICOTINE 7 MG/24 HOURS TOPICAL PATCH TD SCH (10:26)
[2019-11-14] MEDS: NICOTINE POLACRILEX 4 MG GUM BUC PRN (10:27)
--- NOTE | 2019-11-14 12:43 | PN ---
S CIWA - CIWA Score Nausea/Vomitin Muscle Tremors: 2 Anxiety: 2 Agitation: 2 Paroxysmal Sweats: No Perspiration Orientation: 0-Oriented Tacttile Disturbances: 1-Very Mild Itch/Numbness Auditory Disturbances: 0-None Visual Disturbances: 0-None Headache: 1-Very Mild CIWA-Ar Total Score: 10 S Progress Note (SOAP) Subjective: alert,irritable,anxious,nausea,vomiting,tremor,aching pain Objective: 11/14/19 12:41 Vital Signs Temperature 98.0 F 11/14/19 08:49 Pulse Rate 52 L 11/14/19 08:49 Respiratory Rate 18 11/14/19 08:49 Blood Pressure 141/88 11/14/19 08:49 O2 Sat by Pulse Oximetry (%) 98 11/14/19 06:20 Laboratory Last Values WBC 3.3 K/mm3 (4.0-10.0) L 11/13/19 12:40 RBC 3.92 M/mm3 (4.00-5.60) L 11/13/19 12:40 Hgb 11.7 GM/dL (11.7-16.9) 11/13/19 12:40 Hct 35.7 % (35.4-49) 11/13/19 12:40 MCV 90.9 fl (80-96) 11/13/19 12:40 MCH 29.8 pg (25.7-33.7) 11/13/19 12:40 MCHC 32.8 g/dl (32.0-35.9) 11/13/19 12:40 RDW 14.0 % (11.9-15.9) 11/13/19 12:40 Plt Count 4 K/MM3 (134-434) L* D 11/13/19 12:40 MPV 9.2 fl (7.5-11.1) 11/13/19 12:40 Sodium 138 mmol/L (136-145) 11/13/19 12:40 Potassium 4.0 mmol/L (3.5-5.1) 11/13/19 12:40 Chloride 104 mmol/L (98-107) 11/13/19 12:40 Carbon Dioxide 30 mmol/L (21-32) 11/13/19 12:40 Anion Gap 4 MMOL/L (8-16) L 11/13/19 12:40 BUN 12.7 mg/dL (7-18) 11/13/19 12:40 Creatinine 1.1 mg/dL (0.55-1.3) 11/13/19 12:40 Est GFR (CKD-EPI)AfAm 101.69 11/13/19 12:40 Est GFR (CKD-EPI)NonAf 87.74 11/13/19 12:40 Random Glucose 89 mg/dL (74-106) 11/13/19 12:40 Calcium 9.2 mg/dL (8.5-10.1) 11/13/19 12:40 Total Bilirubin 0.4 mg/dL (0.2-1) 11/13/19 12:40 AST 23 U/L (15-37) 11/13/19 12:40 ALT 43 U/L (13-61) 11/13/19 12:40 Alkaline Phosphatase 76 U/L (45-117) 11/13/19 12:40 Total Protein 7.4 g/dl (6.4-8.2) 11/13/19 12:40 Albumin 3.6 g/dl (3.4-5.0) 11/13/19 12:40 Syphilis Serology Non-reactive (NONREACTIVE) 11/13/19 12:40 Assessment: 11/14/19 12:42 withdrawal symptom Plan: continue detox valium regimen,repeat cbc,initial platelet is 4000,repeat cbc,methadone maintenance 50 mgs po daily ,repeat cbc and platelet pending
[2019-11-14] MEDS ORDERED: ONDANSETRON *ODT* 4 MG TABLET SL PRN (13:29)
--- NOTE | 2019-11-14 13:54 | PN ---
S Progress Note Note: Belsomra 10 mg/hs prn for insomnia was substituted for Trazadone 50 mg/hs due to low platelet count. This was discussed with patient
[2019-11-14 14:19] LABS: HEMATOCRIT 41.5 % (35.4-49); HEMOGLOBIN 13.6 GM/dL (11.7-16.9); MCH 29.8 pg (25.7-33.7); MCHC 32.8 g/dl (32.0-35.9); MEAN CELL VOLUME 90.8 fl (80-96); MEAN PLT VOLUME 10.9 fl (7.5-11.1); PLATELET COUNT 205 K/MM3 (134-434); RBC 4.57 M/mm3 (4.00-5.60); RDW 14.2 % (11.9-15.9); WHITE BLOOD COUNT 6.3 K/mm3 (4.0-10.0)
--- NOTE | 2019-11-14 14:48 | PN ---
[facility] Progress Note Note: Laboratory Results - last 24 hr 11/13/19 11/13/19 11/13/19 12:40 12:40 12:40 WBC 3.3 L RBC 3.92 L Hgb 11.7 Hct 35.7 MCV 90.9 MCH 29.8 MCHC 32.8 RDW 14.0 Plt Count 4 L* D MPV 9.2 Sodium 138 Potassium 4.0 Chloride 104 Carbon Dioxide 30 Anion Gap 4 L BUN 12.7 Creatinine 1.1 Est GFR (CKD-EPI)AfAm 101.69 Est GFR (CKD-EPI)NonAf 87.74 Random Glucose 89 Calcium 9.2 Total Bilirubin 0.4 AST 23 ALT 43 Alkaline Phosphatase 76 Total Protein 7.4 Albumin 3.6 Syphilis Serology Non-reactive COVID-19 ([facility]) HIV Ag/Ab Combo Qual 11/13/19 11/14/19 11/14/19 15:00 08:00 10:00 WBC 6.3 RBC 4.57 Hgb 13.6 Hct 41.5 D MCV 90.8 MCH 29.8 MCHC 32.8 RDW 14.2 Plt Count 205 D MPV 10.9 D Sodium Potassium Chloride Carbon Dioxide Anion Gap BUN Creatinine Est GFR (CKD-EPI)AfAm Est GFR (CKD-EPI)NonAf Random Glucose Calcium Total Bilirubin AST ALT Alkaline Phosphatase Total Protein Albumin Syphilis Serology COVID-19 (ESHA) Not detected HIV Ag/Ab Combo Qual Negative repeat cbc noted platelet count is 205k continue detox regimen
[2019-11-14] MEDS ORDERED: SUVOREXANT 10 MG TABLET PO PRN (22:00)
[2019-11-14] MEDS: THIAMINE HCL 100 MG TABLET (FP) PO SCH (22:24)
[2019-11-14] MEDS: MELATONIN 5 MG TABLETS PO SCH (22:25)
[2019-11-15] MEDS: diazePAM 5 MG TABLET PO PRN (03:07)
[2019-11-15] MEDS ORDERED: METHADONE HCL 40 MG DISPERSABLE TABLET ONE (04:13)
[2019-11-15] MEDS ORDERED: METHADONE HCL 10 MG TABLET ONE (04:13)
[2019-11-15] MEDS: METHADONE 40 MG, METHADONE 10 MG PO SCH (05:15)
[2019-11-15] MEDS: hydrOXYzine PAMOATE 25 MG CAPSULE (FP) PO SCH ×2 (05:16→10:32)
[2019-11-15] MEDS ORDERED: diazePAM 5 MG TABLET PO SCH (06:00)
[2019-11-15 09:12] VITALS: BP 107/70; PULSE 90; TEMP 97.6
[2019-11-15] MEDS ORDERED: METHADONE HCL 10 MG TABLET PO ONE (10:00)
[2019-11-15] MEDS: PRENATAL VITAMINS W/ FOLIC ACID TABLET (FP) PO SCH (10:32)
[2019-11-15] MEDS: NICOTINE 7 MG/24 HOURS TOPICAL PATCH TD SCH (10:32)
[2019-11-15] MEDS: NICOTINE POLACRILEX 4 MG GUM BUC PRN (10:32)
[2019-11-15] MEDS: busPIRone HCL 10 MG TABLET (FP) PO SCH (10:32)
--- NOTE | 2019-11-15 11:44 | PN ---
S CIWA - CIWA Score Nausea/Vomitin-Mild Nausea/No Vomiting Muscle Tremors: 2 Anxiety: 2 Agitation: 2 Paroxysmal Sweats: No Perspiration Orientation: 0-Oriented Tacttile Disturbances: 0-None Auditory Disturbances: 0-None Visual Disturbances: 0-None Headache: 2-Mild CIWA-Ar Total Score: 9 S Progress Note (SOAP) Subjective: alert,irritable,anxious,interrupted sleep,aching pain in the body and back Objective: 11/15/19 11:40 Vital Signs Temperature 97.6 F 11/15/19 08:47 Pulse Rate 90 11/15/19 08:47 Respiratory Rate 18 11/15/19 08:47 Blood Pressure 107/70 11/15/19 08:47 O2 Sat by Pulse Oximetry (%) 98 11/15/19 05:09 Assessment: 11/15/19 11:41 withdrawal symptom Plan: continue detox,valium regimen,patient is on methadone built up ,will get 60 mgs today and 70 mgs po daily from 11/16/2019
--- NOTE | 2019-11-15 11:48 | PN ---
[facility] Progress Note Note: patient did not want to continue detox,high risks of relapsing explained,patient understood,seen by counselor, patient signed release amcamacho,will follow up with his laurie hood
--- NOTE | 2019-11-15 11:50 | DS ---
[facility] Detox Discharge Summary Admission Date: 11/13/19 Discharge Date: 11/15/19 - History Present History: Alcohol Dependence, Cocaine Dependence, Sedative Dependence, MMTP Additional Comments: alert,oriented x3 ambulation on the unit lung clear on auscultation bilaterally abdomen soft,no distension,no pain or tenderness no pain in the leg patient signed release ama, left the unit in stable condition patient will follow up with methadone program declined rehab [facility] total time of discharge 35 minutes Pertinent Past History: hepatitis c old laceration of right elbow substance induce anxiety,depression,insomnia - Physical Exam Results Vital Signs: Vital Signs Temperature 97.6 F 11/15/19 08:47 Pulse Rate 90 11/15/19 08:47 Respiratory Rate 18 11/15/19 08:47 Blood Pressure 107/70 11/15/19 08:47 O2 Sat by Pulse Oximetry (%) 98 11/15/19 05:09 Pertinent Admission Physical Exam Findings: withdrawal signs and symptom Vital Signs Temperature 97.6 F 11/15/19 08:47 Pulse Rate 90 11/15/19 08:47 Respiratory Rate 18 11/15/19 08:47 Blood Pressure 107/70 11/15/19 08:47 O2 Sat by Pulse Oximetry (%) 98 11/15/19 05:09 Laboratory Last Values WBC 6.3 K/mm3 (4.0-10.0) 11/14/19 10:00 RBC 4.57 M/mm3 (4.00-5.60) 11/14/19 10:00 Hgb 13.6 GM/dL (11.7-16.9) 11/14/19 10:00 Hct 41.5 % (35.4-49) D 11/14/19 10:00 MCV 90.8 fl (80-96) 11/14/19 10:00 MCH 29.8 pg (25.7-33.7) 11/14/19 10:00 MCHC 32.8 g/dl (32.0-35.9) 11/14/19 10:00 RDW 14.2 % (11.9-15.9) 11/14/19 10:00 Plt Count 205 K/MM3 (134-434) D 11/14/19 10:00 MPV 10.9 fl (7.5-11.1) D 11/14/19 10:00 Sodium 138 mmol/L (136-145) 11/13/19 12:40 Potassium 4.0 mmol/L (3.5-5.1) 11/13/19 12:40 Chloride 104 mmol/L (98-107) 11/13/19 12:40 Carbon Dioxide 30 mmol/L (21-32) 11/13/19 12:40 Anion Gap 4 MMOL/L (8-16) L 11/13/19 12:40 BUN 12.7 mg/dL (7-18) 11/13/19 12:40 Creatinine 1.1 mg/dL (0.55-1.3) 11/13/19 12:40 Est GFR (CKD-EPI)AfAm 101.69 11/13/19 12:40 Est GFR (CKD-EPI)NonAf 87.74 11/13/19 12:40 Random Glucose 89 mg/dL (74-106) 11/13/19 12:40 Calcium 9.2 mg/dL (8.5-10.1) 11/13/19 12:40 Total Bilirubin 0.4 mg/dL (0.2-1) 11/13/19 12:40 AST 23 U/L (15-37) 11/13/19 12:40 ALT 43 U/L (13-61) 11/13/19 12:40 Alkaline Phosphatase 76 U/L (45-117) 11/13/19 12:40 Total Protein 7.4 g/dl (6.4-8.2) 11/13/19 12:40 Albumin 3.6 g/dl (3.4-5.0) 11/13/19 12:40 Syphilis Serology Non-reactive (NONREACTIVE) 11/13/19 12:40 COVID-19 (ESHA) Not detected (Not Detected) 11/13/19 15:00 HIV Ag/Ab Combo Qual Negative (NEGATIVE) 11/14/19 08:00 - Medication Discharge Medications: Ambulatory Orders Methadone [Dolophine -] 70 mg PO DAILY 07/25/18 Trazodone HCl 50 mg PO HS 07/25/18 Gabapentin [Neurontin -] 300 mg PO TID 08/18/18 Buspar - 10 mg PO BID 10/21/19 Buspirone HCl [Buspar -] 10 mg PO BID #30 tablet 07/24/20 - Diagnosis (1) Alcohol dependence with uncomplicated withdrawal Current Visit: Yes Status: Acute (2) Cocaine dependence Current Visit: Yes Status: Acute Qualifiers: Substance use status: uncomplicated Qualified Code(s): F14.20 - Cocaine dependence, uncomplicated (3) Insomnia secondary to depression with anxiety Current Visit: Yes Status: Acute (4) Nicotine dependence Current Visit: Yes Status: Acute Qualifiers: Nicotine product type: cigarettes Substance use status: in withdrawal Qualified Code(s): F17.213 - Nicotine dependence, cigarettes, with withdrawal (5) Sedative, hypnotic or anxiolytic dependence, uncomplicated Current Visit: Yes Status: Acute (6) Weight loss Current Visit: Yes Status: Acute (7) Laceration of elbow, right Current Visit: No Status: Acute Qualifiers: Encounter type: subsequent encounter Qualified Code(s): S51.011D - Laceration without foreign body of right elbow, subsequent encounter (8) Neuropathy Current Visit: No Status: Acute (9) Methadone maintenance therapy patient Current Visit: Yes Status: Acute - AMA Did Patient Leave Against Medical Advice: Yes
--- NOTE | 2019-11-15 13:07 | PN ---
[facility] Progress Note Note: Psychiatry Attending's note : Called by Dr Villagomez. For scripts. Discharge requested by patient. Medications reviewed. Buspirone is confirmed. Buspirone 10 mg po bid (as per senior informatica developer Lida). Script sent electronically to [facility].
[2019-11-16] MEDS ORDERED: METHADONE 40 MG, METHADONE 30 MG PO SCH (06:00)
[2019-11-16] MEDS ORDERED: diazePAM 5 MG TABLET PO ONE (06:00)
[2019-11-16] MEDS ORDERED: METHADONE HCL 10 MG TABLET PO SCH (06:00)
== END 2019-11-15 12:06 | disposition left against medical advice (07) | DRG 770 ==
LOC: YASAS 10:51 → Y5N DETOX 13:55 → Y3N 11-14 07:20
PROVIDERS: ADMIT Allergy & Immunology; ATTEND Allergy & Immunology
PROC: HZ2ZZZZ Detoxification Services for Substance Abuse Treatment (ICD-10-PCS; principal; 2019-11-13)
DX: F10.230 Alcohol dependence with withdrawal, uncomplicated (principal); F11.23 Opioid dependence with withdrawal; F13.20 Sedative, hypnotic or anxiolytic dependence, uncomplicated; F14.20 Cocaine dependence, uncomplicated; F12.20 Cannabis dependence, uncomplicated; F17.213 Nicotine dependence, cigarettes, with withdrawal; F19.282 Other psychoactive substance dependence with psychoactive substance-induced sleep disorder; F19.280 Other psychoactive substance dependence with psychoactive substance-induced anxiety disorder; F19.24 Other psychoactive substance dependence with psychoactive substance-induced mood disorder; F51.05 Insomnia due to other mental disorder; G62.9 Polyneuropathy, unspecified; B18.2 Chronic viral hepatitis C; R63.4 Abnormal weight loss; Z68.21 Body mass index [BMI] 21.0-21.9, adult; Z98.890 Other specified postprocedural states; Z56.0 Unemployment, unspecified
CPT/HCPCS: 36415; 80053; 85027; 86780; 87389; Q0162; U0003

== ENCOUNTER 2020-01-12 17:08 | Inpatient (IN) | payer OTHER ==
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
[2020-01-12] MEDS ORDERED: ONDANSETRON *ODT* 4 MG TABLET SL PRN (18:28)
[2020-01-12] MEDS ORDERED: hydrOXYzine PAMOATE 25 MG CAPSULE (FP) PO PRN (18:28)
[2020-01-12] MEDS ORDERED: BISMUTH SUBSALICYLATE 524 MG/30 ML UD PO PRN (18:28)
[2020-01-12] MEDS ORDERED: MAGNESIUM CITRATE 300 ML BOTTLE PO PRN (18:28)
[2020-01-12] MEDS ORDERED: IBUPROFEN 400 MG TABLET (FP) PO PRN (18:28)
[2020-01-12] MEDS ORDERED: MAG HYDROX/AL HYDROX/SIMETH 30 ML UNIT-DOSE CUP PO PRN (18:28)
[2020-01-12] MEDS ORDERED: ACETAMINOPHEN 325 MG TABLET (FP) PO PRN ×2 (18:28)
[2020-01-12] MEDS ORDERED: MAGNESIUM HYDROX 2400MG/30ML ORAL SUSPENSION 30 ML CUP PO PRN (18:28)
[2020-01-12] MEDS ORDERED: MENTHOL/PHENOL 1 EACH UD MM PRN (18:28)
[2020-01-12] MEDS ORDERED: METHOCARBAMOL 500 MG TABLET PO PRN (18:28)
[2020-01-12] MEDS ORDERED: diazePAM 5 MG TABLET PO ONE (18:31)
[2020-01-12 18:54] VITALS: BMI 22.1
[2020-01-12] MEDS ORDERED: cloNIDine HCL 0.1 MG TABLET PO PRN (20:09)
[2020-01-12] MEDS: MELATONIN 5 MG TABLETS PO SCH (22:45)
[2020-01-12] MEDS: THIAMINE HCL 100 MG TABLET (FP) PO SCH (22:46)
[2020-01-12] MEDS: diazePAM 5 MG TABLET PO SCH (22:46)
[2020-01-13] MEDS: diazePAM 5 MG TABLET PO SCH ×4 (05:50→22:12)
[2020-01-13] MEDS: NICOTINE POLACRILEX 4 MG GUM BUC PRN ×5 (05:52→22:13)
[2020-01-13] MEDS ORDERED: METHADONE HCL 10 MG TABLET (FOR DETOX USE ONLY) ONE (09:38)
[2020-01-13] MEDS ORDERED: METHADONE HCL 5 MG TABLET (FOR DETOX USE ONLY) ONE (09:38)
[2020-01-13] MEDS ORDERED: METHADONE (DETOX) 20 MG, METHADONE (DETOX) 5 MG PO ONE (10:00)
[2020-01-13] MEDS: PRENATAL VITAMINS W/ FOLIC ACID TABLET (FP) PO SCH (10:25)
[2020-01-13 12:24] LABS: HEMATOCRIT 42.3 % (35.4-49); MCH 29.4 pg (25.7-33.7); MEAN CELL VOLUME 89.2 fl (80-96); MEAN PLT VOLUME 9.4 fl (7.5-11.1); PLATELET COUNT 263 K/MM3 (134-434); RBC 4.75 M/mm3 (4.00-5.60); RDW 14.4 % (11.9-15.9); WHITE BLOOD COUNT 8.7 K/mm3 (4.0-10.0)
[2020-01-13 12:57] LABS: ALBUMIN 3.4 g/dl (3.4-5.0); BILIRUBIN,TOTAL 0.3 mg/dL (0.2-1); BLOOD UREA NITROGEN 15.5 mg/dL (7-18); CALCIUM 8.6 mg/dL (8.5-10.1); POTASSIUM 4.5 mmol/L (3.5-5.1); TOT PROT 7.4 g/dl (6.4-8.2)
--- NOTE | 2020-01-13 13:24 | PN ---
[facility] CIWA - CIWA Score Nausea/Vomitin-No Nausea/No Vomiting Muscle Tremors: 3 Anxiety: 3 Agitation: 4-Moderately Restless Paroxysmal Sweats: 3 Orientation: 0-Oriented Tacttile Disturbances: 0-None Auditory Disturbances: 0-None Visual Disturbances: 0-None Headache: 0-None Present CIWA-Ar Total Score: 13 [facility] COWS - Scale Resting Pulse: 0= MO 80 or Below Sweatin= Chills/Flushing Restless Observation: 1= Difficult to Sit Still Pupil Size: 0= Normal to Room Light Bone or Joint Aches: 2= Severe Diffuse Aches Runny Nose/ Eye Tearin= None GI Upset > 30mins: 0= None Tremor Observation of Outstretched Hands: 1= Tremor [place], Not Seen Yawning Observation: 1= 1-2x During Session Anxiety or Irritability: 2=Irritable/Anxious Goose Flesh Skin: 3=Piloerection COWS Score: 11 [facility] Progress Note (SOAP) Subjective: sweats shakes interrupted sleep body aches chills poor appetite Objective: 01/13/20 13:23 Vital Signs Temperature 98.2 F 01/13/20 12:28 Pulse Rate 69 01/13/20 12:28 Respiratory Rate 18 01/13/20 12:28 Blood Pressure 120/57 L 01/13/20 12:28 O2 Sat by Pulse Oximetry (%) 99 01/13/20 12:28 Laboratory Tests 01/12/20 01/13/20 01/13/20 08:30 08:30 08:30 WBC 8.7 RBC 4.75 Hgb 14.0 Hct 42.3 MCV 89.2 MCH 29.4 MCHC 33.0 RDW 14.4 Plt Count 263 D MPV 9.4 D Sodium 141 Potassium 4.5 Chloride 105 Carbon Dioxide 29 Anion Gap 6 L BUN 15.5 Creatinine 1.0 Est GFR (CKD-EPI)AfAm 114.11 Est GFR (CKD-EPI)NonAf 98.45 Random Glucose 65 L Calcium 8.6 Total Bilirubin 0.3 AST 51 H ALT 89 H Alkaline Phosphatase 84 Total Protein 7.4 Albumin 3.4 Syphilis Serology Non-reactive labs noted aaox3 ambulating no acute distress Assessment: 01/13/20 13:24 withdrawal sx Plan: continue detox increase fluids ensure bid
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
[2020-01-13] MEDS: BACITRACIN 0.9 GM PACKET TP SCH (14:16)
[2020-01-13] MEDS: diazePAM 5 MG TABLET PO PRN ×2 (14:16→20:03)
[2020-01-13] MEDS: busPIRone HCL 10 MG TABLET (FP) PO SCH ×2 (15:42→22:11)
[2020-01-13] MEDS: traZODone HCL 50 MG TABLET (FP) PO SCH (22:11)
[2020-01-13] MEDS: THIAMINE HCL 100 MG TABLET (FP) PO SCH (22:11)
[2020-01-13] MEDS: MELATONIN 5 MG TABLETS PO SCH (22:13)
[2020-01-14] MEDS: diazePAM 5 MG TABLET PO SCH ×3 (06:55→22:17)
[2020-01-14] MEDS: NICOTINE POLACRILEX 4 MG GUM BUC PRN ×3 (06:56→17:54)
[2020-01-14] MEDS ORDERED: METHADONE HCL 10 MG TABLET (FOR DETOX USE ONLY) PO ONE (10:00)
[2020-01-14] MEDS: busPIRone HCL 10 MG TABLET (FP) PO SCH ×2 (10:25→22:18)
[2020-01-14] MEDS: BACITRACIN 0.9 GM PACKET TP SCH (10:25)
[2020-01-14] MEDS: PRENATAL VITAMINS W/ FOLIC ACID TABLET (FP) PO SCH (10:26)
[2020-01-14] MEDS: diazePAM 5 MG TABLET PO PRN ×2 (10:28→17:54)
--- NOTE | 2020-01-14 12:20 | PN ---
[facility] CIWA - CIWA Score Nausea/Vomitin-No Nausea/No Vomiting Muscle Tremors: 3 Anxiety: 2 Agitation: 3 Paroxysmal Sweats: 2 Orientation: 0-Oriented Tacttile Disturbances: 0-None Auditory Disturbances: 0-None Visual Disturbances: 0-None Headache: 0-None Present CIWA-Ar Total Score: 10 BHS COWS - Scale Resting Pulse: 0= [place] 80 or Below Sweatin= Chills/Flushing Restless Observation: 1= Difficult to Sit Still Pupil Size: 0= Normal to Room Light Bone or Joint Aches: 1= Mild Discomfort Runny Nose/ Eye Tearin= Nasal Congestion GI Upset > 30mins: 0= None Tremor Observation of Outstretched Hands: 1= Tremor [place], Not Seen Yawning Observation: 2= >3x During Session Anxiety or Irritability: 1=Feels Anxious/Irritable Goose Flesh Skin: 0=Smooth Skin COWS Score: 8 BHS Progress Note (SOAP) Subjective: restless agitation sweats nasal congestion interrupted sleep Objective: 01/14/20 12:20 Vital Signs Temperature 98.6 F 01/14/20 08:29 Pulse Rate 76 01/14/20 08:29 Respiratory Rate 16 01/14/20 08:29 Blood Pressure 116/63 01/14/20 08:29 O2 Sat by Pulse Oximetry (%) 98 01/14/20 06:25 Laboratory Tests 01/12/20 01/12/20 01/13/20 08:30 21:45 08:30 WBC 8.7 RBC 4.75 Hgb 14.0 Hct 42.3 MCV 89.2 MCH 29.4 MCHC 33.0 RDW 14.4 Plt Count 263 D MPV 9.4 D Sodium Potassium Chloride Carbon Dioxide Anion Gap BUN Creatinine Est GFR (CKD-EPI)AfAm Est GFR (CKD-EPI)NonAf Random Glucose Calcium Total Bilirubin AST ALT Alkaline Phosphatase Total Protein Albumin Syphilis Serology Non-reactive COVID-19 (ESHA) Not detected 01/13/20 08:30 WBC RBC Hgb Hct MCV MCH MCHC RDW Plt Count MPV Sodium 141 Potassium 4.5 Chloride 105 Carbon Dioxide 29 Anion Gap 6 L BUN 15.5 Creatinine 1.0 Est GFR (CKD-EPI)AfAm 114.11 Est GFR (CKD-EPI)NonAf 98.45 Random Glucose 65 L Calcium 8.6 Total Bilirubin 0.3 AST 51 H ALT 89 H Alkaline Phosphatase 84 Total Protein 7.4 Albumin 3.4 Syphilis Serology COVID-19 (ESHA) aaox3 ambulating no acute distress labs note mildly increased ast/alt; increase fluids Assessment: 01/14/20 12:21 withdrawals Plan: continue detox increase fluids
[2020-01-14] MEDS: traZODone HCL 50 MG TABLET (FP) PO SCH (22:18)
[2020-01-14] MEDS: MELATONIN 5 MG TABLETS PO SCH (22:18)
[2020-01-14] MEDS: THIAMINE HCL 100 MG TABLET (FP) PO SCH (22:18)
[2020-01-15] MEDS: diazePAM 5 MG TABLET PO SCH ×2 (06:37→18:18)
[2020-01-15] MEDS: NICOTINE POLACRILEX 4 MG GUM BUC PRN ×3 (06:38→18:19)
[2020-01-15] MEDS ORDERED: METHADONE HCL 5 MG TABLET (FOR DETOX USE ONLY) ONE (09:10)
[2020-01-15] MEDS ORDERED: METHADONE HCL 10 MG TABLET (FOR DETOX USE ONLY) ONE (09:10)
[2020-01-15] MEDS ORDERED: METHADONE (DETOX) 10 MG, METHADONE (DETOX) 5 MG PO ONE (10:00)
[2020-01-15] MEDS: diazePAM 5 MG TABLET PO PRN (10:17)
[2020-01-15] MEDS: BACITRACIN 0.9 GM PACKET TP SCH (10:19)
[2020-01-15] MEDS: busPIRone HCL 10 MG TABLET (FP) PO SCH (10:19)
[2020-01-15] MEDS: PRENATAL VITAMINS W/ FOLIC ACID TABLET (FP) PO SCH (10:19)
--- NOTE | 2020-01-15 13:23 | PN ---
S CIWA - CIWA Score Nausea/Vomitin-No Nausea/No Vomiting Muscle Tremors: 2 Anxiety: 1-Mildly Anxious Agitation: 1-Slight > Activity Paroxysmal Sweats: 1-Minimal Palms Moist Orientation: 0-Oriented Tacttile Disturbances: 0-None Auditory Disturbances: 0-None Visual Disturbances: 0-None Headache: 0-None Present CIWA-Ar Total Score: 5 BHS COWS - Scale Resting Pulse: 0= [place] 80 or Below Sweatin= Chills/Flushing Restless Observation: 1= Difficult to Sit Still Pupil Size: 0= Normal to Room Light Bone or Joint Aches: 1= Mild Discomfort Runny Nose/ Eye Tearin= None GI Upset > 30mins: 0= None Tremor Observation of Outstretched Hands: 1= Tremor [place], Not Seen Yawning Observation: 1= 1-2x During Session Anxiety or Irritability: 1=Feels Anxious/Irritable Goose Flesh Skin: 0=Smooth Skin COWS Score: 6 S Progress Note (SOAP) Subjective: sweats restless interrupted sleep Objective: 01/15/20 13:23 Vital Signs Temperature 96.9 F L 01/15/20 08:31 Pulse Rate 69 01/15/20 08:31 Respiratory Rate 17 01/15/20 08:31 Blood Pressure 110/65 01/15/20 08:31 O2 Sat by Pulse Oximetry (%) 97 01/15/20 08:31 Laboratory Tests 01/12/20 01/12/20 01/13/20 08:30 21:45 08:30 WBC 8.7 RBC 4.75 Hgb 14.0 Hct 42.3 MCV 89.2 MCH 29.4 MCHC 33.0 RDW 14.4 Plt Count 263 D MPV 9.4 D Sodium Potassium Chloride Carbon Dioxide Anion Gap BUN Creatinine Est GFR (CKD-EPI)AfAm Est GFR (CKD-EPI)NonAf Random Glucose Calcium Total Bilirubin AST ALT Alkaline Phosphatase Total Protein Albumin Syphilis Serology Non-reactive COVID-19 (ESHA) Not detected 01/13/20 08:30 WBC RBC Hgb Hct MCV MCH MCHC RDW Plt Count MPV Sodium 141 Potassium 4.5 Chloride 105 Carbon Dioxide 29 Anion Gap 6 L BUN 15.5 Creatinine 1.0 Est GFR (CKD-EPI)AfAm 114.11 Est GFR (CKD-EPI)NonAf 98.45 Random Glucose 65 L Calcium 8.6 Total Bilirubin 0.3 AST 51 H ALT 89 H Alkaline Phosphatase 84 Total Protein 7.4 Albumin 3.4 Syphilis Serology COVID-19 (ESHA) aaox3 ambulating no acute distress Assessment: 01/15/20 13:23 withdrawals Plan: continue detox increase fluids
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
[2020-01-15 23:35] VITALS: BP 134/98; PULSE 106; TEMP 97
[2020-01-16] MEDS ORDERED: diazePAM 5 MG TABLET PO ONE (06:00)
[2020-01-16] MEDS ORDERED: METHADONE HCL 10 MG TABLET (FOR DETOX USE ONLY) PO ONE (10:00)
[2020-01-17] MEDS ORDERED: METHADONE HCL 5 MG TABLET (FOR DETOX USE ONLY) PO ONE (06:00)
== END 2020-01-15 22:25 | disposition left against medical advice (07) | DRG 770 ==
LOC: YASAS 17:08 → Y6N 18:21
PROVIDERS: ADMIT Allergy & Immunology; ATTEND Allergy & Immunology
PROC: HZ2ZZZZ Detoxification Services for Substance Abuse Treatment (ICD-10-PCS; principal; 2020-01-12)
DX: F10.230 Alcohol dependence with withdrawal, uncomplicated (principal); F11.23 Opioid dependence with withdrawal; F14.20 Cocaine dependence, uncomplicated; F13.20 Sedative, hypnotic or anxiolytic dependence, uncomplicated; F17.210 Nicotine dependence, cigarettes, uncomplicated; F19.282 Other psychoactive substance dependence with psychoactive substance-induced sleep disorder; F19.280 Other psychoactive substance dependence with psychoactive substance-induced anxiety disorder; F19.24 Other psychoactive substance dependence with psychoactive substance-induced mood disorder; F31.9 Bipolar disorder, unspecified; G40.509 Epileptic seizures related to external causes, not intractable, without status epilepticus; G62.9 Polyneuropathy, unspecified; G47.00 Insomnia, unspecified; B18.2 Chronic viral hepatitis C; Z62.810 Personal history of physical and sexual abuse in childhood; Z56.0 Unemployment, unspecified; Z98.890 Other specified postprocedural states
CPT/HCPCS: 36415; 80053; 85027; 86780; U0003

== ENCOUNTER 2020-06-29 15:27 | Inpatient (IN) | payer OTHER ==
[2020-06-29] MEDS ORDERED: ONDANSETRON *ODT* 4 MG TABLET SL PRN (17:18)
[2020-06-29] MEDS ORDERED: METHOCARBAMOL 500 MG TABLET PO PRN (17:18)
[2020-06-29] MEDS ORDERED: IBUPROFEN 400 MG TABLET (FP) PO PRN (17:18)
[2020-06-29] MEDS ORDERED: ACETAMINOPHEN 325 MG TABLET (FP) PO PRN ×2 (17:18)
[2020-06-29] MEDS ORDERED: MENTHOL/PHENOL 1 EACH UD MM PRN (17:18)
[2020-06-29] MEDS ORDERED: MAGNESIUM CITRATE 300 ML BOTTLE PO PRN (17:18)
[2020-06-29] MEDS ORDERED: MAG HYDROX/AL HYDROX/SIMETH 30 ML UNIT-DOSE CUP PO PRN (17:18)
[2020-06-29] MEDS ORDERED: MAGNESIUM HYDROX 2400MG/30ML ORAL SUSPENSION 30 ML CUP PO PRN (17:18)
[2020-06-29] MEDS ORDERED: NICOTINE POLACRILEX 2 MG GUM BUC PRN (17:18)
[2020-06-29] MEDS ORDERED: BISMUTH SUBSALICYLATE 524 MG/30 ML UD PO PRN (17:18)
[2020-06-29] MEDS ORDERED: METHADONE HCL 10 MG TABLET (FOR DETOX USE ONLY) PO ONE (17:20)
[2020-06-29] MEDS ORDERED: cloNIDine HCL 0.1 MG TABLET PO PRN (17:20)
[2020-06-29 17:58] VITALS: BMI 22.3
[2020-06-29] MEDS: NICOTINE POLACRILEX 4 MG GUM BUC PRN (19:16)
[2020-06-29] MEDS ORDERED: THIAMINE HCL 100 MG TABLET (FP) PO SCH (22:00)
[2020-06-29] MEDS ORDERED: MELATONIN 5 MG TABLETS PO SCH (22:00)
[2020-06-29] MEDS: diazePAM 5 MG TABLET PO SCH (23:47)
[2020-06-30] MEDS: diazePAM 5 MG TABLET PO PRN ×2 (03:25→13:06)
[2020-06-30] MEDS: NICOTINE POLACRILEX 4 MG GUM BUC PRN ×2 (03:27→10:19)
[2020-06-30] MEDS: diazePAM 5 MG TABLET PO SCH ×2 (06:04→10:17)
[2020-06-30] MEDS ORDERED: METHADONE HCL 10 MG TABLET (FOR DETOX USE ONLY) ONE (09:26)
[2020-06-30] MEDS ORDERED: METHADONE HCL 5 MG TABLET (FOR DETOX USE ONLY) ONE (09:27)
[2020-06-30] MEDS ORDERED: PRENATAL VITAMINS W/ FOLIC ACID TABLET (FP) PO SCH (10:00)
[2020-06-30] MEDS ORDERED: METHADONE (DETOX) 20 MG, METHADONE (DETOX) 5 MG PO ONE (10:00)
[2020-06-30 12:11] LABS: HEMATOCRIT 41.3 % (35.4-49); HEMOGLOBIN 13.9 GM/dL (11.7-16.9); MCH 29.3 pg (25.7-33.7); MCHC 33.7 g/dl (32.0-35.9); MEAN CELL VOLUME 87.1 fl (80-96); MEAN PLT VOLUME 8.5 fl (7.5-11.1); PLATELET COUNT 305 K/MM3 (134-434); RBC 4.74 M/mm3 (4.00-5.60); RDW 14.7 % (11.9-15.9); WHITE BLOOD COUNT 5.7 K/mm3 (4.0-10.0)
[2020-06-30 12:16] LABS: POTASSIUM 4.4 mmol/L (3.5-5.1)
[2020-06-30 12:30] LABS: CALCIUM 9.2 mg/dL (8.5-10.1)
[2020-06-30 12:31] LABS: ALBUMIN 3.2 g/dl (3.4-5.0); BLOOD UREA NITROGEN 12.6 mg/dL (7-18)
[2020-06-30 12:34] LABS: CREATININE 0.8 mg/dL (0.55-1.3)
[2020-06-30 12:35] LABS: BILIRUBIN,TOTAL 0.6 mg/dL (0.2-1); TOT PROT 7.2 g/dl (6.4-8.2)
[2020-06-30 13:03] LABS: HIV INTERPRETATION NEGATIVE (NEGATIVE)
[2020-06-30 13:23] VITALS: BP 117/67; PULSE 77; TEMP 98
[2020-06-30] MEDS ORDERED: traZODone HCL 50 MG TABLET (FP) PO SCH (22:00)
[2020-07-01] MEDS ORDERED: diazePAM 5 MG TABLET PO SCH (06:00)
[2020-07-01] MEDS ORDERED: METHADONE HCL 10 MG TABLET (FOR DETOX USE ONLY) PO ONE (10:00)
[2020-07-02] MEDS ORDERED: diazePAM 5 MG TABLET PO SCH (06:00)
[2020-07-02] MEDS ORDERED: METHADONE (DETOX) 10 MG, METHADONE (DETOX) 5 MG PO ONE (10:00)
[2020-07-03] MEDS ORDERED: diazePAM 5 MG TABLET PO ONE (06:00)
[2020-07-03] MEDS ORDERED: METHADONE HCL 10 MG TABLET (FOR DETOX USE ONLY) PO ONE (10:00)
[2020-07-04] MEDS ORDERED: METHADONE HCL 5 MG TABLET (FOR DETOX USE ONLY) PO ONE (06:00)
== END 2020-06-30 13:52 | disposition left against medical advice (07) | DRG 770 ==
LOC: YASAS 15:27 → Y3N 17:58
PROVIDERS: ADMIT Allergy & Immunology; ATTEND Allergy & Immunology
PROC: HZ2ZZZZ Detoxification Services for Substance Abuse Treatment (ICD-10-PCS; principal; 2020-06-29)
DX: F11.23 Opioid dependence with withdrawal (principal); F10.230 Alcohol dependence with withdrawal, uncomplicated; F13.20 Sedative, hypnotic or anxiolytic dependence, uncomplicated; F14.20 Cocaine dependence, uncomplicated; F12.20 Cannabis dependence, uncomplicated; F17.210 Nicotine dependence, cigarettes, uncomplicated; F19.280 Other psychoactive substance dependence with psychoactive substance-induced anxiety disorder; F19.24 Other psychoactive substance dependence with psychoactive substance-induced mood disorder; F51.05 Insomnia due to other mental disorder; F41.8 Other specified anxiety disorders; F32.9 Major depressive disorder, single episode, unspecified; B18.2 Chronic viral hepatitis C
CPT/HCPCS: 36415; 80053; 85027; 86780; 87389; 93005; 93010; C9803; U0003